=== PATIENT | male | born 1950 | race Hispanic/Latino ===

== ENCOUNTER 2019-01-30 18:19 | Inpatient (IN) | payer MEDICARE ==
[~2019-01-30] VITALS: Ht 162.6 cm; Wt 91.6 kg
[~2019-01-30 18:19] MED LIST: DEXAMETHASONE SOD PHOS INJ 4 MG/ML VIAL ONE; LIDOCAINE HCL 2% LOCAL INJ 5 ML SDV VIAL INJ ONE; ONDANSETRON HCL INJ 2MG/ML 2ML 2 MG/ML VIAL ONE; PROPOFOL IV EMULSION 10 MG/ML 20 ML VIAL ONE
--- OUTSIDE RECORDS SUMMARY | 2019-01-30 18:22 | XMS REPORT ---
Author Author [facility] Address Unknown Phone Unavailable Care Team Providers Care Airport Driver Name Role Phone Unavailable Unavailable Problems This patient has no known problems. Allergies, Adverse Reactions, Alerts This patient has no known allergies or adverse reactions. Medications This patient has no known medications. Results Test Description Test Time Test Comments Text Results Atomic Results Result Comments NM BONE SCAN WHOLE BODY 2017-12-26 14:41:14 CLINICAL INDICATION: dx: c61, r/o mets, prostate ca, asymptomaticMODALITY: Ad Infuse dual head gamma cameraTECHNIQUE: 25 mCi Tc 99m MDP are injected IV. After a suitable time delay, whole body imaging images are obtained.FINDINGS:COMPARISON: Multi para metric prostate MRI.Symmetric bilateral renal function is observed.Periodontal uptake is noted within the maxilla and right mandible.There are mild to moderate arthritic changes seen at the acromioclavicular, glenohumeral, sternoclavicular, wrist, medial knee compartments bilaterally. Mild to moderate thoracic spondylosis is seen. Facet arthritic changes are noted left L4-5 and right L5-S1 facet. Focal uptake is present at the dorsal left calcaneus.No lytic or blastic osseous metastasis is observed.IMPRESSION:Negative for evidence of osteoblastic metastatic disease.PQRS 147: [id number]
--- OUTSIDE RECORDS SUMMARY | 2019-01-30 18:22 | XMS REPORT | Clinical Summary ---
Author Author [facility] L [facility] Address Unknown Phone Unavailable Care Team Providers Care Country Printer Name Role Phone Shiva Leung MD PCP Allergies No Known Allergies Medications End Date Status Medication Sig Dispensed Refills Start Date Active metFORMIN (GLUCOPHAGE) Take 1,000 mg 0 500 mg tablet by mouth 2 (two) times a day with meals. Active lisinopril Take 40 mg by 0 (PRINIVIL,ZESTRIL) 10 mg mouth 2 (two) tablet times a day. Active carvedilol (COREG) 12.5 Take 6.25 mg 0 MG tablet by mouth 2 (two) times a day with meals. 1/2 tablet.. 018. Dose is 3.125mg 2 x a day Active atorvastatin (LIPITOR) 10 Take 20 mg by 0 MG tablet mouth nightly. Active aspirin (ECOTRIN) 81 MG Take 81 mg by 0 enteric coated tablet mouth daily. Active amLODIPine (NORVASC) 10 TOME ANN-MARIE 0 01/03/201 mg tablet TABLETA TODOS 8 LOS D? Active JARDIANCE 25 mg tablet TOME ANN-MARIE 0 TABLETA TODOS 8 LOS D? EN LA MA?KESHIA Active GLYXAMBI 25-5 mg tablet Take 1 tablet 0 by mouth 8 daily. Active LANSOPRAZOLE ORAL Take by 0 mouth. 03/01/2018 acetaminophen-codeine Take 1 tablet 30 tablet 0 (TYLENOL WITH CODEINE #3) by mouth 8 300-30 mg per tablet every 6 (six) hours as needed for moderate pain for up to 10 days. 03/21/2018 docusate sodium (COLACE) Take 1 60 capsule 0 100 MG capsule capsule (100 8 mg total) by mouth 2 (two) times a day for 30 days. 02/23/2018 ciprofloxacin (CIPRO) 500 Take 1 tablet 8 tablet 0 MG tablet (500 mg 8 total) by mouth 2 (two) times a day for 4 days. Start taking the day BEFORE your visit for catheter removal. 03/19/2018 levoFLOXacin (LEVAQUIN) Take 1 tablet 7 tablet 0 500 MG tablet (500 mg 8 total) by mouth daily for 7 days. Active Problems Problem Noted Date Prostate cancer 02/16/2018 Encounters Care Team Description Date Type Specialty Zaida Chua RN 12/17/2018 Telephone Oncology Nestor Farfan MD 04/03/2018 Telephone Urology Nestor Farfan MD Prostate cancer (HCC) (Primary Dx) 04/01/2018 Office Visit Urology Nestor Farfan MD Malignant neoplasm of prostate (Primary Dx) 03/12/2018 Office Visit Urology Nestor Farfan MD 03/05/2018 Telephone Urology Nestor Farfan MD 02/26/2018 Telephone Urology Nestor Farfan MD Prostate cancer (Primary Dx) 02/25/2018 Office Visit Urology Nestor Farfan MD 02/25/2018 Telephone Urology Nestor Farfan MD 02/24/2018 Telephone Urology Lyn Estrada 02/19/2018 Patient Quality Outreach Nestor Farfan MD 02/19/2018 Telephone Urology Nestor Farfan MD ROBOTIC ASSISTED LAPAROSCOPIC PROSTATECTOMY, BILATERAL PELVIC LYMPH NODE DISSECTION, URETHROPEXY 02/16/2018 Surgery Urology Kemar Arciniega APRN 02/16/2018 Anesthesia Urology Event Nestor Farfan MD Prostate cancer 02/16/2018 Hospital General Internal Medicine - Encounter 02/19/2018 after 01/29/2018 Social History Date Tobacco Use Types Packs/Day Years Used Never Smoker Smokeless Tobacco: Never Used Tobacco Cessation: Counseling Given: No Alcohol Use Drinks/Week oz/Week Comments No Sex Assigned at Date Recorded Not on file Industry Job Start Date Occupation Not on file Not on file Not on file Travel End Travel History Travel Start No recent travel history available. Last Filed Vital Signs Time Taken Vital Sign Reading 02/19/2018 11:09 AM CDT Blood Pressure 152/79 02/19/2018 11:09 AM CDT Pulse 68 02/19/2018 11:09 AM CDT Temperature 35.9 C (96.6 F) 02/19/2018 11:09 AM CDT Respiratory Rate 20 02/19/2018 11:09 AM CDT Oxygen Saturation 94% - Inhaled Oxygen - Concentration 02/16/2018 6:59 AM CDT Weight 88.5 kg (195 lb 2 oz) 02/16/2018 6:59 AM CDT Height 167.6 cm (5' 6") 02/16/2018 6:59 AM CDT Body Mass Index 31.49 Plan of Treatment Health Maintenance Due Date Last Done Comments COLONOSCOPY SCREENING 2001 SHINGLES VACCINES (#1) 2001 65+ PNEUMOCOCCAL VACCINE 2016 (1 of 2 - PCV13) INFLUENZA VACCINE 01/21/2019 Implants Device Identifier Shelf Expiration Date Model / Serial / Lot Implanted Type Area Manufactur er 08/31/2022 [id number] / / [id number] Clip [employer]igt[employer] Hem-O-Felice Endoscpc Aplr Surgical N/A: N/A TAN Arias Lg - [id number] Implants; CLOSURE Implanted: Qty: 2 on 02/16/2018 by [employer]; Nestor Martinez MD Extenders; Surgical Wires 10/07/2022 [id number] / / [id number] Clip [employer] Hem[employer]ice [employer] Aplr Surgical N/A: [facility] [id number] Implants; CLOSURE Implanted: Qty: 1 on 02/16/2018 by [employer]; Nestor Martinez MD Extenders; Surgical Wires 10/07/2022 [id number] / / [id number] Clip [employer]igt[employer] Hem-[employer]-Felice Endoscpc Aplr Surgical N/A: N/A TAN Arias Mumtaz - [id number] Implants; CLOSURE Implanted: Qty: 1 on 02/16/2018 by [employer]; Nestor Martinez MD Extenders; Surgical Wires 08/28/2022 [id number] / / [id number] Clip [employer]igt[employer] Hem-[employer]-Felice Endoscpc Aplr Surgical N/A: N/A TAN Arias Lg - [id number] Implants; CLOSURE Implanted: Qty: 2 on 02/16/2018 by [employer]; Nestor Martinez MD Extenders; Surgical Wires 08/18/2022 [id number] / / [id number] Clip [employer]igt[employer] Hem-[employer]-Felice Endoscpc Aplr Surgical N/A: N/A TAN Pemberton Lg - [id number] Implants; CLOSURE Implanted: Qty: 1 on 02/16/2018 by [employer]; SYSTEMS Nestor Farfan MD Extenders; Surgical Wires Procedures Comments Procedure Name Priority Date/Time Associated Diagnosis URINE CULTURE Routine 03/12/2018 Malignant neoplasm of 11:52 AM CDT prostate [id number] Routine 03/12/2018 Malignant neoplasm of 11:34 AM CDT prostate POC GLUCOSE Routine 02/19/2018 12:13 PM CDT CREATININE LEVEL, MISC Routine 02/19/2018 FLUID 7:40 AM CDT POC GLUCOSE Routine 02/19/2018 7:28 AM CDT BASIC METABOLIC PANEL Routine 02/19/2018 4:00 AM CDT ZZESTIMATED GFR Routine 02/19/2018 4:00 AM CDT POC GLUCOSE Routine 02/18/2018 9:26 PM CDT POC GLUCOSE Routine 02/18/2018 5:36 PM CDT POC GLUCOSE Routine 02/18/2018 11:52 AM CDT POC GLUCOSE Routine 02/18/2018 7:28 AM CDT CBC HEMOGRAM Routine 02/18/2018 4:30 AM CDT ZZESTIMATED GFR Routine 02/18/2018 4:00 AM CDT BASIC METABOLIC PANEL Routine 02/18/2018 4:00 AM CDT POC GLUCOSE Routine 02/17/2018 9:35 PM CDT POC GLUCOSE Routine 02/17/2018 5:35 PM CDT POC GLUCOSE Routine 02/17/2018 11:28 AM CDT POC GLUCOSE Routine 02/17/2018 8:00 AM CDT ZZESTIMATED GFR Routine 02/17/2018 4:00 AM CDT BASIC METABOLIC PANEL Routine 02/17/2018 4:00 AM CDT HEMOGLOBIN & HEMATOCRIT Routine 02/17/2018 3:45 AM CDT POC GLUCOSE Routine 02/16/2018 8:34 PM CDT HC COMPLETE BLD COUNT Routine 02/16/2018 W/AUTO DIFF 1:42 PM CDT POC GLUCOSE Routine 02/16/2018 1:17 PM CDT ZZESTIMATED GFR Routine 02/16/2018 1:01 PM CDT BASIC METABOLIC PANEL Routine 02/16/2018 1:01 PM CDT SURGICAL PATHOLOGY Routine 02/16/2018 REQUEST 9:31 AM CDT SURGICAL PATHOLOGY Routine 02/16/2018 REQUEST 9:31 AM CDT VT AN ELECTIVE Routine 02/16/2018 ENDOTRACHEAL AIRWAY 8:25 AM CDT Procedure Note - Senia Todd - 02/16/2018 8:25 AM CDT Airway Date/Time: 02/16/2018 7:29 AM Performed by: SENIA TODD Authorized by: EDDY SHORT Location: OR Urgency: Elective Difficult Airway: No Resident/C RNA/AA: SENIA TODD Preoxygena shanelle with 100% O2: Yes C-spine Precaution s Maintained Throughout : Yes Mask Ventilatio n: Easy mask Final Airway Type: Endotrache al airway Final Endotrache al Airway: ETT Cuffed: Yes Technique Used: Direct laryngosco py Devices/Me thods Used in Placement: Intubatin g stylet Insertion Site: Oral Blade Type: Amaya Laryngosco pe Blade/Vide olaryngosc ope Blade Size: 2 ETT Size (mm): 8.0 Cuff at minimum occlusion pressure: Yes Measured from: Gums ETT to Gums (cm): 23 Placement Verified by: CO2 detection, direct visualizat ion and equal breath sounds Laryngosco pic view: Grade I - full view of glottis Rapid Sequence Induction (RSI): No Modified RSI: No Number of Attempts at Approach: 1 AURTRAUMA TIC RUC CHIPPED PRIOR ARRIVAL OR LUBE & TAPE BOTH EYES OGT PROSTATECTOMY, 02/16/2018 Prostate cancer LAPAROSCOPIC, 7:30 AM CDT ROBOT-ASSISTED Case Notes DAVINCI* *, POSSIBLE EXTENDED RECOVERY Special Needs DAVINCI* *, POSSIBLE EXTENDED RECOVERY POC GLUCOSE Routine 02/16/2018 6:21 AM CDT after 01/29/2018 Results * Urine culture (03/12/2018 11:52 AM CDT) [facility] Urine culture No growth [facility] Specimen Urine Narrative Performed At Performed at:[address] [place] [address] [facility] [address] [place], [place] [id number] [employer] Consultant: Julien Delgado MD, Phone:[phone] Performing Organization Address [facility]/Zipcode Phone Number [facility] * POC BLADDER SCAN/PVR (03/12/2018 11:34 AM CDT) Specimen Urine Impressions Performed At 0 ml * POC glucose (02/19/2018 12:13 PM CDT) Only the most recent of 13 results within the time period is included. [facility] POC glucose 105 (H) 65 - 99 mg/dL [facility] DEPART[facility] Comment: OF PATHOLOGY No Action Needed AND GENOMIC Meter ID: [id number] MEDICINE Crop Adjuster: Eb New Specimen Performing Organization Address City/State/Zipcode Phone Number [facility] DEPARTMENT OF [address] [place] [phone] PATHOLOGY AND GENOMIC MEDICINE * Creatinine level, misc fluid (02/19/2018 7:40 AM CDT) Pathologist [facility] Fluid type Peritoneal [facility] DEPARTMENT OF PATHOLOGY AND GENOMIC MEDICINE Creatinine, 0.7 mg/dL [facility] DEPART[facility] fluid Comment: OF PATHOLOGY Analysis performed on Veronica AND StudioEX 8000 analyzer. This is not an MEDICINE approved methodology for this specimen type;accuracy and clinical significance uncertain. Specimen Fluid Performing Organization Address City/[facility]/[place] [address] PATHOLOGY AND GENOMIC MEDICINE * Estimated GFR (02/19/2018 4:00 AM CDT) Only the most recent of 4 results within the time period is included. [facility] GFR Non Af Amer >90 mL/min/1.73 m2 [facility] DEPART[facility] OF PATHOLOGY AND GENOMIC MEDICINE GFR Af Amer >90 mL/min/1.73 m2 [facility] DEPART[facility] Comment: OF PATHOLOGY Chronic kidney disease: <60 AND GENOMIC mL/min/1.73m2 MEDICINE Kidney failure: <15 mL/min/1.73m2 The estimated GFR is calculated from the IDMS-traceable Modification of Diet in Renal Disease Equation. The accuracy of the calculation is poor when the creatinine is normal. Calculated values >90 mL/min/1.73m2 are not reported. This equation has not been validated in children (<18 years), women, the elderly (>70 years), or ethnic groups other than Caucasians and Americans. Specimen Plasma specimen Performing Organization Address City/State/[place] [address] [employer] [facility] * Basic metabolic panel (02/19/2018 4:00 AM CDT) Only the most recent of 4 results within the time period is included. Pathologist [facility] Sodium 142 135 - 148 mEq/L [facility] DEPARTMENT OF PATHOLOGY AND GENOMIC MEDICINE Potassium 4.4 3.5 - 5.0 mEq/L [facility] DEPARTMENT OF PATHOLOGY AND GENOMIC MEDICINE Chloride 105 98 - 112 mEq/L [facility] DEPARTMENT OF PATHOLOGY AND GENOMIC MEDICINE CO2 19 (L) 24 - 31 mEq/L [facility] DEPARTMENT OF PATHOLOGY AND GENOMIC MEDICINE Anion gap 18@ANIO (H) 7 - 15 mEq/L [facility] DEPARTMENT OF PATHOLOGY AND GENOMIC MEDICINE BUN 16 8 - 23 mg/dL [facility] DEPARTMENT OF PATHOLOGY AND GENOMIC MEDICINE Creatinine 0.8 0.7 - 1.2 mg/dL [facility] DEPARTMENT OF PATHOLOGY AND GENOMIC MEDICINE Glucose 74 65 - 99 mg/dL [facility] DEPARTMENT OF PATHOLOGY AND GENOMIC MEDICINE Calcium 8.3 (L) 8.8 - 10.2 mg/dL [facility] DEPARTMENT OF PATHOLOGY AND GENOMIC MEDICINE Specimen Plasma specimen Performing Organization Address City/[facility]/[place] [address] PATHOLOGY AND GENOMIC MEDICINE * CBC hemogram (02/18/2018 4:30 AM CDT) WBC 8.54 4.50 - 11.00 k/uL [facility] DEPARTMENT OF PATHOLOGY AND GENOMIC MEDICINE RBC 4.30 (L) 4.40 - 6.00 m/uL [facility] DEPARTMENT OF PATHOLOGY AND GENOMIC MEDICINE HGB 12.2 (L) 14.0 - 18.0 g/dL [facility] DEPARTMENT OF PATHOLOGY AND GENOMIC MEDICINE HCT 40.6 (L) 41.0 - 51.0 % [facility] DEPARTMENT OF PATHOLOGY AND GENOMIC MEDICINE MCV 94.4 82.0 - 100.0 fL [facility] DEPARTMENT OF PATHOLOGY AND GENOMIC MEDICINE MCH 28.4 27.0 - 34.0 pg [facility] DEPARTMENT OF PATHOLOGY AND GENOMIC MEDICINE MCHC 30.0 (L) 31.0 - 37.0 g/dL [facility] DEPARTMENT OF PATHOLOGY AND GENOMIC MEDICINE RDW - SD 49.7 37.0 - 55.0 fL [facility] DEPARTMENT OF PATHOLOGY AND GENOMIC MEDICINE MPV 11.8 8.8 - 13.2 fL [facility] DEPARTMENT OF PATHOLOGY AND GENOMIC MEDICINE Platelet count 156 150 - 400 k/uL [facility] DEPARTMENT OF PATHOLOGY AND GENOMIC MEDICINE Nucleated RBC 0.00 /100 WBC [facility] DEPARTMENT OF PATHOLOGY AND GENOMIC MEDICINE Specimen Blood Performing Organization Address City/[facility] Number [facility] [place] [address] PATHOLOGY AND GENOMIC MEDICINE * Hemoglobin & hematocrit (02/17/2018 3:45 AM CDT) HGB 12.2 (L) 14.0 - 18.0 g/dL [facility] DEPARTMENT OF PATHOLOGY AND GENOMIC MEDICINE HCT 39.9 (L) 41.0 - 51.0 % [facility] DEPARTMENT OF PATHOLOGY AND GENOMIC MEDICINE Specimen Blood Performing Organization Address City/[facility]/[place] [address] PATHOLOGY AND GENOMIC MEDICINE * CBC with platelet and differential (02/16/2018 1:42 PM CDT) WBC 11.82 (H) 4.50 - 11.00 k/uL [facility] DEPARTMENT OF PATHOLOGY AND GENOMIC MEDICINE RBC 4.81 4.40 - 6.00 m/uL [facility] DEPARTMENT OF PATHOLOGY AND GENOMIC MEDICINE HGB 13.6 (L) 14.0 - 18.0 g/dL [facility] DEPARTMENT OF PATHOLOGY AND GENOMIC MEDICINE HCT 43.8 41.0 - 51.0 % [facility] DEPARTMENT OF PATHOLOGY AND GENOMIC MEDICINE MCV 91.1 82.0 - 100.0 fL [facility] DEPARTMENT OF PATHOLOGY AND GENOMIC MEDICINE MCH 28.3 27.0 - 34.0 pg [facility] DEPARTMENT OF PATHOLOGY AND GENOMIC MEDICINE MCHC 31.1 31.0 - 37.0 g/dL [facility] DEPARTMENT OF PATHOLOGY AND GENOMIC MEDICINE RDW - SD 46.9 37.0 - 55.0 fL [facility] DEPARTMENT OF PATHOLOGY AND GENOMIC MEDICINE MPV 11.7 8.8 - 13.2 fL [facility] DEPARTMENT OF PATHOLOGY AND GENOMIC MEDICINE Platelet count 241 150 - 400 k/uL [facility] DEPARTMENT OF PATHOLOGY AND GENOMIC MEDICINE Nucleated RBC 0.20 /100 WBC [facility] DEPARTMENT OF PATHOLOGY AND GENOMIC MEDICINE Neutrophils 82.5 (H) 39.0 - 69.0 % [facility] DEPARTMENT OF PATHOLOGY AND GENOMIC MEDICINE Lymphocytes 9.9 (L) 25.0 - 45.0 % [facility] DEPARTMENT OF PATHOLOGY AND GENOMIC MEDICINE Monocytes 6.5 0.0 - 10.0 % [facility] DEPARTMENT OF PATHOLOGY AND GENOMIC MEDICINE Eosinophils 0.6 0.0 - 5.0 % [facility] DEPARTMENT OF PATHOLOGY AND GENOMIC MEDICINE Basophils 0.2 0.0 - 1.0 % [facility] DEPARTMENT OF PATHOLOGY AND GENOMIC MEDICINE Immature 0.3Comment: "Immature 0.0 - 1.0 % [facility] DEPART[facility] granulocytes granulocytes" (promyelocytes, OF PATHOLOGY myelocytes, metamyelocytes) AND GENOMIC MEDICINE Specimen Blood Performing Organization Address City/State/Zipcode Phone Number [facility] DEPARTMENT OF [address] [place] [address] PATHOLOGY AND GENOMIC MEDICINE * Surgical pathology request (02/16/2018 9:31 AM CDT) Only the most recent of 2 results within the time period is included. [facility] DEPARTMENT OF PATHOLOGY AND GENOMIC MEDICINE Surgical See link below for PDF Lab [facility] DEPART[facility] pathology Report OF PATHOLOGY report AND GENOMIC MEDICINE Result status This is Supplemental Report [facility] DEPART[facility] for [id number] OF PATHOLOGY AND GENOMIC MEDICINE Specimen Performing Organization Address City/State/Zipcode Phone Number [facility] DEPARTMENT OF [address] [place] [address] PATHOLOGY AND GENOMIC MEDICINE after 01/29/2018 Insurance Type Payer Benefit Subscriber ID Effective Phone Address Plan / Dates Group PPO BCBS BCBS xxxxxxxxxxxx 2016-P CHOICE resent PPO/DIMPLE ADRIAN PPO Advance Directives Patient has advance care planning documents on file. For more information, katelynn lemons contact: Jorge L Vann [address] [place] [address]
[2019-01-30] MEDS ORDERED: SODIUM CHLORIDE 0.9% 1000ML 1,000 ML IV STA (19:43)
[2019-01-30] MEDS ORDERED: CEFTRIAXONE SOD 1 GM/NS 50 ML 50 ML IV SCH ×3 (19:45→23:30)
[2019-01-30 19:59] LABS: BILIRUBIN,URINE NEGATIVE (NEGATIVE); CLARITY,URINE SL CLOUDY (CLEAR); COLOR,URINE YELLOW (YELLOW); KETONES,URINE NEGATIVE (NEGATIVE); LEUKOCYTE ESTERASE ,URINE NEGATIVE (NEGATIVE); NITRITE,URINE NEGATIVE (NEGATIVE); URINE UROBILINOGEN 0.2 mg/dL (0.2 - 1)
[2019-01-30 20:01] LABS: PROTEIN,URINE DIPSTICK 3+ (NEGATIVE)
[2019-01-30 20:17] LABS: BACTERIA,URINE RARE /HPF; EPITHELIAL CELLS,URINE RARE /LPF; RBC,URINE >50 /HPF (0-5); WBC,URINE (MAN) 0-5 /HPF (0-5)
[2019-01-30 20:26] LABS: BASOPHILS % 0.2 % (0.0-1.0); EOSINOPHILS # (AUTO) 0.3 (0.0-0.4); EOSINOPHILS % 3.6 % (0.0-6.0); HEMATOCRIT 34.4 % (38.2-49.6); HEMOGLOBIN 11.1 g/dL (14.0-18.0); LYMPHOCYTES # (AUTO) 0.7 (1.0-3.2); MEAN CORPUSCULAR HEMOGLOBIN 27.3 pg (28-32); MEAN CORPUSCULAR HGB CONC 32.3 g/dL (31-35); MEAN CORPUSCULAR VOLUME 84.7 fL (81-99); MONOCYTES % 11.2 % (4.4-11.3); NEUTROPHILS # (AUTO) 6.7 (2.1-6.9); NEUTROPHILS % 76.3 % (38.7-80.0); PLATELET COUNT 403 x10e3/uL (140-360); RED BLOOD COUNT 4.06 x10e6/uL (4.3-5.7); RED CELL DISTRIBUTION WIDTH 14.8 % (11.7-14.4)
[2019-01-30 20:41] LABS: ALANINE AMINOTRANSFERASE 13 IU/L (0-55); ALBUMIN 2.9 g/dL (3.5-5.0); ALBUMIN/GLOBULIN RATIO 0.6 (0.8-2.0); ALKALINE PHOSPHATASE 70 IU/L (40-150); ANION GAP 17.6 mmol/L (8-16); BLOOD UREA NITROGEN 15 mg/dL (7-26); BUN/CREATININE RATIO 15 (6-25); CALCIUM 9.4 mg/dL (8.4-10.2); CARBON DIOXIDE 23 mmol/L (22-29); CHLORIDE 101 mmol/L (98-107); CREATININE, SERUM 0.98 mg/dL (0.72-1.25); EST GLOMERULAR FILTRATION RATE > 60 ML/MIN (60-); GLUCOSE 98 mg/dL (74-118); POTASSIUM 3.6 mmol/L (3.5-5.1); SODIUM 138 mmol/L (136-145)
--- NOTE | 2019-01-30 23:11 | Diagnostic Imaging Report ---
EXAM: CT Abdomen and Pelvis WITH contrast INDICATION: Blood in urine. Painful urination. COMPARISON: None. TECHNIQUE: Abdomen and pelvis were scanned utilizing a multidetector helical scanner from the lung base to the pubic symphysis after administration of IV contrast. Coronal and sagittal reformations were obtained. Routine protocol was performed. Scan was performed when during portal venous phase. IV CONTRAST: 100 cc Isovue-300 ORAL CONTRAST: Water RADIATION DOSE: Total DLP: 712.11 mGy*cm Estimated effective dose: (DLP x 0.015 x size factor) mSv COMPLICATIONS: None FINDINGS: LINES and TUBES: None. LOWER THORAX: 6 mm groundglass nodule in the right middle lobe on image 1 series 2. Bibasilar dependent atelectasis. 8 mm noncalcified subpleural nodule in the lingula on images 6 series 2. Minimal lingular atelectasis on image 6 series 2. HEPATOBILIARY: No focal hepatic lesions. No biliary ductal dilation. GALLBLADDER: No radio-opaque stones or sludge. No wall thickening. SPLEEN: No splenomegaly. PANCREAS: No focal masses or ductal dilatation. ADRENALS: No adrenal nodules KIDNEYS/URETERS: Kidneys enhance symmetrically. No hydronephrosis. 3.6 cm cyst in the lower pole of the left kidney associated with punctate calcification. No stones. GI TRACT: No abnormal distention, wall thickening, or evidence of bowel obstruction. Appendix is normal. PELVIC ORGANS/BLADDER: There is diffuse asymmetric wall thickening of the urinary bladder, associated with perivesicular fat stranding, which may reflect cystitis in the proper clinical setting. LYMPH NODES: No lymphadenopathy. VESSELS: There is mild atherosclerotic disease in the aorta and major arterial branches. PERITONEUM / RETROPERITONEUM: No free air or fluid. BONES: Bilateral small fat-containing inguinal hernias. SOFT TISSUES: There is a low-attenuation fluid collection within the right iliac is muscle with mild surrounding peripheral enhancement measuring 4.9 x 2.8 cm on image 73 series 2 which may represent an abscess. IMPRESSION: 1. Findings consistent with cystitis in the proper clinical setting. Recommend follow-up after treatment to document resolution and adnexal the underlying pathology such as neoplasm. 2. 4.9 cm mildly peripherally enhancing collection within the right iliac is muscle may represent an abscess. Bursal fluid is felt to be less likely. 3. Minimally complex cyst in the lower pole of the left knee. Signed by: Dr. Re An M.D. on 01/30/2019 11:08 PM
[2019-01-30] MEDS ORDERED: CARVEDILOL6.25 MG PO (23:36)
[2019-01-30] MEDS ORDERED: NITROFURANTOIN100 MG PO (23:36)
[2019-01-30] MEDS ORDERED: JARDIANCE PO (23:36)
[2019-01-30] MEDS ORDERED: LANSOPRAZOLE30 MG PO (23:36)
[2019-01-30] MEDS ORDERED: AMLODIPINE BESY10 MG PO (23:36)
[2019-01-30] MEDS ORDERED: METFORMIN HCL1000 MG PO (23:36)
[2019-01-30] MEDS ORDERED: ATORVASTATIN CA10 MG PO (23:36)
[2019-01-30] MEDS ORDERED: JANUVIA100 MG PO (23:36)
[2019-01-30] MEDS ORDERED: GLIMEPIRIDE2 MG PO (23:36)
[2019-01-30] MEDS ORDERED: LISINOPRIL40 MG PO (23:36)
[2019-01-31] VITALS (10 sets, daily range): BP systolic 129–157; BP diastolic 78–99
[2019-01-31] MEDS: SODIUM CHLORIDE 0.9% 1000ML 1,000 ML IV SCH ×4 (00:04→19:39)
--- OUTSIDE RECORDS SUMMARY | 2019-01-31 00:06 | XMS REPORT | Clinical Summary ---
Author Author Jorge L [facility] Organization [facility] Address Unknown Phone Unavailable Care Team Providers Care Wire Spooler Name Role Phone Shiva Leung MD PCP [...] General Internal Medicine - Encounter 02/19/2018 after 01/30/2018 Social History Date Tobacco Use Types Packs/Day [...] Lot Implanted Type Area Manufactur er 08/31/2022 [id number] / / [id number] Clip Ligtng Hem-O-Felice Endoscpc Aplr Surgical N/A: N/A TAN Arias Lg - [id number] Implants; CLOSURE Implanted: Qty: 2 on 02/16/2018 by Expanders; Nestor Martinez MD Extenders; Surgical Wires 10/07/2022 [id number] / / [id number] Clip Ligtng Hem-O-Felice Endoscpc Aplr Surgical N/A: [id number]; CLOSURE Implanted: Qty: 1 on 02/16/2018 by Expanders; Nestor Martinez MD Extenders; Surgical Wires 10/07/2022 [id number] / / [id number] Clip Ligtng Hem-O-Felice Endoscpc Aplr Surgical N/A: N/A TAN Arias Mumtaz - [id number] Implants; CLOSURE Implanted: Qty: 1 on 02/16/2018 by Expanders; Nestor Martinez MD Extenders; Surgical Wires 08/28/2022 [id number] / / [id number] Clip Ligtng Hem-O-Felice Endoscpc Aplr Surgical N/A: N/A TAN Arias Lg - [id number] Implants; CLOSURE Implanted: Qty: 2 on 02/16/2018 by Expanders; Nestor Martinez MD Extenders; Surgical Wires 08/18/2022 [id number] / / [id number] Clip Ligtng Hem-O-Felice Endoscpc Aplr Surgical N/A: N/A TAN Pemberton Lg - [id number] Implants; CLOSURE Implanted: Qty: 1 on 02/16/2018 by Expanders; SYSTEMS Nestor Farfan MD Extenders; Surgical Wires Procedures Comments Procedure Name Priority Date/Time Associated Diagnosis URINE CULTURE Routine 03/12/2018 Malignant neoplasm of 11:52 AM CDT prostate [id number] Routine 03/12/2018 Malignant neoplasm of 11:34 AM [...] PATHOLOGY Routine 02/16/2018 REQUEST 9:31 AM CDT IN AN ELECTIVE Routine 02/16/2018 ENDOTRACHEAL AIRWAY 8:25 [...] GLUCOSE Routine 02/16/2018 6:21 AM CDT after 01/30/2018 Results * Urine culture (03/12/2018 11:52 AM CDT) [facility] Urine culture No growth [facility] Specimen Urine Narrative Performed At Performed at:[address] [place] [address] [facility] [address] [place], [place] [id number] Web Application Tester: Julien Delgado MD, Phone:[phone] Performing Organization Address [facility]/Zipcode Phone Number [facility] * POC BLADDER SCAN/PVR (03/12/2018 11:34 AM CDT) Specimen Urine Impressions Performed At 0 ml * POC glucose (02/19/2018 12:13 PM CDT) Only the most recent of 13 results within the time period is included. [facility] POC glucose 105 (H) 65 - 99 mg/dL [facility]PART[facility] Comment: OF PATHOLOGY No Action Needed AND GENOMIC Meter ID: [id number] MEDICINE Maple Sugar Maker: Eb New Specimen Performing Organization Address City/State/Zipcode Phone Number [facility] DEPARTMENT OF [address] [place] [phone] PATHOLOGY AND GENOMIC MEDICINE * Creatinine level, misc fluid (02/19/2018 7:40 AM CDT) Pathologist [facility] Fluid type Peritoneal [facility] DEPART[facility] OF PATHOLOGY AND GENOMIC MEDICINE Creatinine, 0.7 mg/dL [facility] fluid Comment: OF PATHOLOGY Analysis performed on Veronica AND HandMinder 8000 analyzer. This is not an MEDICINE approved methodology for this specimen type;accuracy and clinical significance uncertain. Specimen Fluid Performing Organization Address City/[facility]/[place] [address] PATHOLOGY AND GENOMIC MEDICINE * Estimated GFR (02/19/2018 4:00 AM CDT) Only the most recent of 4 results within the time period is included. [facility] GFR Non Af Amer >90 mL/min/1.73 m2 [facility] DEPART[facility] OF PATHOLOGY AND GENOMIC MEDICINE GFR Af Amer >90 mL/min/1.73 m2 [facility] Comment: OF PATHOLOGY Chronic kidney [...] specimen Performing Organization Address City/State/[place] [address] PATHOLOGY AND HandMinder [facility] * Basic metabolic panel (02/19/2018 4:00 AM CDT) Only the most recent of 4 results within the time period is included. Pathologist [facility] Sodium 142 135 - 148 mEq/L [facility] DEPARTMENT OF PATHOLOGY AND GENOMIC MEDICINE Potassium 4.4 3.5 - 5.0 mEq/L [facility] DEPARTMENT OF PATHOLOGY AND GENOMIC MEDICINE Chloride 105 98 - 112 mEq/L [facility] DEPARTMENT OF PATHOLOGY AND GENOMIC MEDICINE CO2 19 (L) 24 - 31 mEq/L [facility] DEPARTMENT OF PATHOLOGY AND GENOMIC MEDICINE Anion gap 18@ANIO (H) 7 - 15 mEq/L [facility] DEPARTMENT OF PATHOLOGY AND GENOMIC MEDICINE BUN 16 8 - 23 mg/dL [facility] DEPARTMENT OF PATHOLOGY AND GENOMIC MEDICINE Creatinine 0.8 0.7 - 1.2 mg/dL [facility] DEPARTMENT OF PATHOLOGY AND GENOMIC MEDICINE Glucose 74 65 - 99 mg/dL [facility] DEPARTMENT OF PATHOLOGY AND GENOMIC MEDICINE Calcium 8.3 (L) 8.8 - 10.2 mg/dL [facility] DEPARTMENT OF PATHOLOGY AND GENOMIC MEDICINE Specimen Plasma specimen Performing Organization Address City/[facility]/[place] [address] PATHOLOGY AND GENOMIC MEDICINE * CBC hemogram (02/18/2018 4:30 AM CDT) WBC 8.54 4.50 - 11.00 k/uL [facility] DEPARTMENT OF PATHOLOGY AND GENOMIC MEDICINE RBC 4.30 (L) 4.40 - 6.00 m/uL [facility] DEPARTMENT OF PATHOLOGY AND GENOMIC MEDICINE HGB 12.2 (L) 14.0 - 18.0 g/dL [facility] DEPARTMENT OF PATHOLOGY AND GENOMIC MEDICINE HCT 40.6 (L) 41.0 - 51.0 % [facility] DEPARTMENT OF PATHOLOGY AND GENOMIC MEDICINE MCV 94.4 82.0 - 100.0 fL [facility] DEPARTMENT OF PATHOLOGY AND GENOMIC MEDICINE MCH 28.4 27.0 - 34.0 pg [facility] DEPARTMENT OF PATHOLOGY AND GENOMIC MEDICINE MCHC 30.0 (L) 31.0 - 37.0 g/dL [facility] DEPARTMENT OF PATHOLOGY AND GENOMIC MEDICINE RDW - SD 49.7 37.0 - 55.0 fL [facility] DEPARTMENT OF PATHOLOGY AND GENOMIC MEDICINE MPV 11.8 8.8 - 13.2 fL [facility] DEPARTMENT OF PATHOLOGY AND GENOMIC MEDICINE Platelet count 156 150 - 400 k/uL [facility] DEPARTMENT OF PATHOLOGY AND GENOMIC MEDICINE Nucleated RBC 0.00 /100 WBC [facility] DEPARTMENT OF PATHOLOGY AND GENOMIC MEDICINE Specimen Blood Performing Organization Address City/[facility] Cent[facility] Phone Number [facility] [place] [address] PATHOLOGY AND GENOMIC MEDICINE * Hemoglobin & hematocrit (02/17/2018 3:45 AM CDT) HGB 12.2 (L) 14.0 - 18.0 g/dL [facility] DEPARTMENT OF PATHOLOGY AND GENOMIC MEDICINE HCT 39.9 (L) 41.0 - 51.0 % [facility] DEPARTMENT OF PATHOLOGY AND GENOMIC MEDICINE Specimen Blood Performing Organization Address City/[facility]/[place] [address] PATHOLOGY AND GENOMIC MEDICINE * CBC with platelet and differential (02/16/2018 1:42 PM CDT) WBC 11.82 (H) 4.50 - 11.00 k/uL [facility] DEPARTMENT OF PATHOLOGY AND GENOMIC MEDICINE RBC 4.81 4.40 - 6.00 m/uL [facility] DEPARTMENT OF PATHOLOGY AND GENOMIC MEDICINE HGB 13.6 (L) 14.0 - 18.0 g/dL [facility] DEPARTMENT OF PATHOLOGY AND GENOMIC MEDICINE HCT 43.8 41.0 - 51.0 % [facility] DEPARTMENT OF PATHOLOGY AND GENOMIC MEDICINE MCV 91.1 82.0 - 100.0 fL [facility] DEPARTMENT OF PATHOLOGY AND GENOMIC MEDICINE MCH 28.3 27.0 - 34.0 pg [facility] DEPARTMENT OF PATHOLOGY AND GENOMIC MEDICINE MCHC 31.1 31.0 - 37.0 g/dL [facility] DEPARTMENT OF PATHOLOGY AND GENOMIC MEDICINE RDW - SD 46.9 37.0 - 55.0 fL [facility] DEPARTMENT OF PATHOLOGY AND GENOMIC MEDICINE MPV 11.7 8.8 - 13.2 fL [facility] DEPARTMENT OF PATHOLOGY AND GENOMIC MEDICINE Platelet count 241 150 - 400 k/uL [facility] DEPARTMENT OF PATHOLOGY AND GENOMIC MEDICINE Nucleated RBC 0.20 /100 WBC [facility] DEPARTMENT OF PATHOLOGY AND GENOMIC MEDICINE Neutrophils 82.5 (H) 39.0 - 69.0 % [facility] DEPARTMENT OF PATHOLOGY AND GENOMIC MEDICINE Lymphocytes 9.9 (L) 25.0 - 45.0 % [facility] DEPARTMENT OF PATHOLOGY AND GENOMIC MEDICINE Monocytes 6.5 0.0 - 10.0 % [facility] DEPARTMENT OF PATHOLOGY AND GENOMIC MEDICINE Eosinophils 0.6 0.0 - 5.0 % [facility] DEPARTMENT OF PATHOLOGY AND GENOMIC MEDICINE Basophils 0.2 0.0 - 1.0 % [facility] DEPARTMENT OF PATHOLOGY AND GENOMIC MEDICINE Immature 0.3Comment: "Immature 0.0 - 1.0 % [facility] DEPART[facility] granulocytes granulocytes" (promyelocytes, OF PATHOLOGY myelocytes, metamyelocytes) AND GENOMIC MEDICINE Specimen Blood Performing Organization Address City/State/Zipcode Phone Number [facility] DEPARTMENT OF [address] [place] [address] PATHOLOGY AND GENOMIC MEDICINE * Surgical pathology request (02/16/2018 9:31 AM CDT) Only the most recent of 2 results within the time period is included. [facility] DEPARTMENT OF PATHOLOGY AND GENOMIC MEDICINE Surgical See link below for PDF Lab [facility] DE[facility] pathology Report OF PATHOLOGY report AND GENOMIC MEDICINE Result status This is Supplemental Report [facility] for [id number] OF PATHOLOGY AND GENOMIC MEDICINE Specimen Performing Organization Address City/State/Zipcode Phone Number [facility] DEPARTMENT OF [address] [place] [address] PATHOLOGY AND GENOMIC MEDICINE after 01/30/2018 Insurance Type Payer Benefit Subscriber ID Effective Phone Address Plan / Dates Group PPO BCBS BCBS xxxxxxxxxxxx [id number] CHOICE resent PPO/DIMPLE ADRIAN PPO Advance Directives Patient has advance care planning documents on file. For more information, katelynn lemons contact: Jorge L Vann [address] [place] [address]
--- NOTE | 2019-01-31 00:12 | NUR ---
Patient came onto the floor from ER for right groin abscess and painful urination. The patient is Pakistani speaking which the tech translated for the RN. The patient is A/Ox3 with pain over the right groin at 5/10. Wheels lock, bed height low, call light within reach, and side rails up x2. Dr. Vega has been contacted as admitting physician.
[2019-01-31] MEDS ORDERED: IOPAMIDOL 370 MG/ML 200 ML INFUS..BTL INJ ONE (03:27)
[2019-01-31] MEDS ORDERED: SODIUM CHLORIDE 0.9% 50ML 50 ML ONE (03:27)
--- NOTE | 2019-01-31 06:48 | NUR ---
Walking rounds and report received. Patient continues to c/o burning while urinating. Son at the bedside. POC discussed in Kazakh. Bed in lowest position, locked, and call fiore within reach.
[2019-01-31 08:04] LABS: BASOPHILS % 0.4 % (0.0-1.0); EOSINOPHILS # (AUTO) 0.3 (0.0-0.4); EOSINOPHILS % 3.8 % (0.0-6.0); HEMATOCRIT 31.9 % (38.2-49.6); HEMOGLOBIN 9.8 g/dL (14.0-18.0); LYMPHOCYTES # (AUTO) 0.7 (1.0-3.2); LYMPHOCYTES % 9.2 % (18.0-39.1); MEAN CORPUSCULAR HEMOGLOBIN 26.7 pg (28-32); MEAN CORPUSCULAR HGB CONC 30.7 g/dL (31-35); MEAN CORPUSCULAR VOLUME 86.9 fL (81-99); MONOCYTES # (AUTO) 0.8 (0.2-0.8); MONOCYTES % 11.2 % (4.4-11.3); NEUTROPHILS # (AUTO) 5.3 (2.1-6.9); NEUTROPHILS % 74.8 % (38.7-80.0); PLATELET COUNT 328 x10e3/uL (140-360); RED BLOOD COUNT 3.67 x10e6/uL (4.3-5.7)
[2019-01-31 08:26] LABS: ALANINE AMINOTRANSFERASE 11 IU/L (0-55); ALBUMIN 2.4 g/dL (3.5-5.0); ALBUMIN/GLOBULIN RATIO 0.6 (0.8-2.0); ALKALINE PHOSPHATASE 61 IU/L (40-150); ANION GAP 13.1 mmol/L (8-16); BLOOD UREA NITROGEN 13 mg/dL (7-26); BUN/CREATININE RATIO 15 (6-25); CALCIUM 8.6 mg/dL (8.4-10.2); CARBON DIOXIDE 24 mmol/L (22-29); CHLORIDE 107 mmol/L (98-107); CREATININE, SERUM 0.84 mg/dL (0.72-1.25); EST GLOMERULAR FILTRATION RATE > 60 ML/MIN (60-); GLUCOSE 144 mg/dL (74-118); POTASSIUM 3.1 mmol/L (3.5-5.1); SODIUM 141 mmol/L (136-145)
[2019-01-31] MEDS ORDERED: HEPARIN SOD (PORCINE) 5,000 UNIT/ML VIAL SC NR (11:30)
[2019-01-31] MEDS: INSULIN LISPRO 100 UNIT/1 ML 3ML VIAL SQ SCH ×3 (11:30→20:05)
[2019-01-31] MEDS ORDERED: POTASSIUM CHLORIDE 20 MEQ TAB CR PO NR (11:30)
[2019-01-31] MEDS: GLIMEPIRIDE 2 MG TAB PO SCH ×2 (12:55→23:22)
[2019-01-31] MEDS: CARVEDILOL 12.5 MG TAB PO SCH ×2 (12:55→17:33)
[2019-01-31] MEDS: AMLODIPINE BESYLATE 10 MG TAB PO SCH (12:56)
[2019-01-31] MEDS: LISINOPRIL 20 MG TAB PO SCH (12:56)
[2019-01-31] MEDS: CEFEPIME 1GM/NS 0.9% 50 ML 50 ML IV SCH ×3 (12:57→23:22)
--- NOTE | 2019-01-31 13:07 | Consultation ---
DATE OF CONSULTATION: 01/31/2019 Dr. Darin Edwards dictating a consultation for Dr. Vega. HISTORY: This is a 68-year-old male, who comes to the hospital because of pain in the right lower abdomen and groin. He also has been told that he had a urinary tract infection. His symptomatology for that was frequency, urgency, dysuria, particularly at the end of the penis and he had seen some bloody discoloration in the urine at the end of micturition. He was given antibiotic, nitrofurantoin which he took at home. So, he comes to the hospital, where a CT scan is done and he is admitted with the impression of an abscess of the right groin. He also has severe microscopic hematuria, although the patient had not seen any blood. There is over 50 red blood cells in the urine itself. MEDICATIONS: Amlodipine 10 mg daily, atorvastatin 10 mg at bedtime, carvedilol 6.25 mg twice daily, glimepiride 2 mg every 12 hours, lansoprazole 30 mg daily, lisinopril 40 mg daily, metformin 1000 mg twice daily and Januvia 100 mg daily. He also takes lactobacillus acidophilus. PAST UROLOGICAL HISTORY: He had approximately a year and a half ago a radical robotic prostatectomy with bilateral lymph node dissection followed by 38 treatments of radiation in the pelvis. He does not offer any other surgery. SOCIAL HISTORY: He is . He is not sexually active. ALLERGIES: HE HAS NO KNOWN DRUG ALLERGIES. PHYSICAL EXAMINATION: The penis is normal. Testicles are normal. There are no inguinal hernias. There is pain on the femoral canal going up into the right groin and stopping at the superior anterior iliac spine on the right side. Prostatic fossa is empty. IMAGING: On the CT scan, the patient has a right-sided lymphocele that is a result of the operation that occurs with lymphadenectomy and the treatment is to drain the lymphocele into the abdomen. The patient has bilateral cyst upper pole right small and peripelvic lower pole larger at 3.5, 3.7 cm with a 1 mm stone in the lower pole infundibulum-calyx. The patient has an enlarged liver and that his abdominal CT is normal. The bladder is severely thickened and there is perivesical inflammation as well as perirectal inflammation. The patient has had pretty much symptomatology due to the radiation cystitis. IMPRESSION: 1. Radiation cystitis. 2. Lymphocele. RECOMMENDATIONS: Cystoscopy is recommended. The patient has the complaint of frequency during the daytime, but also nocturia x5 to 6. He also notices that his flow is slow and sometimes he is just being dribbling lately. After the antibiotics, he says that his flow has gotten a little better and it does not burn as much. I would like to do a cystoscopy, dilatation of any bladder neck contracture that the patient has. A biopsy of the bladder with full duration. Of course, we will be sending all this records to [facility], so he can be seen by the urologist. If I have to dilate the bladder neck, I will have to leave a Schulz catheter in place for 3 to 5 days. The patient does not have to be in the hospital that long. MD TOR Toribio/MODL /[id number]
[2019-01-31] MEDS: LACTOBACILLUS ACIDOPHILUS CAPSULE PO SCH (17:33)
--- NOTE | 2019-01-31 18:45 | NUR ---
Received bedside report from day shift RN. The patient is laying on the bed, not in distress. Bed height low, call light within reach, wheels locked, and side rails up x2. The patient verbalized understanding to be NPO after midnight for cystoscopy tomorrow afternoon.
[2019-01-31] MEDS: ATORVASTATIN 10 MG TAB PO SCH (19:58)
[2019-01-31] MEDS: ACETAMINOPHEN 325 MG TAB PO PRN (19:58)
[2019-02-01] VITALS (10 sets, daily range): BP systolic 125–157; BP diastolic 76–90
[2019-02-01] MEDS: CEFEPIME 1GM/NS 0.9% 50 ML 50 ML IV SCH ×3 (05:26→17:20)
[2019-02-01 06:29] LABS: INR 1.01; PROTHROMBIN TIME 13.8 seconds (11.9-14.5)
[2019-02-01 06:31] LABS: PARTIAL THROMBOPLASTIN TIME 28.1 seconds (23.8-35.5)
[2019-02-01 06:35] LABS: ANION GAP 11.4 mmol/L (8-16); BLOOD UREA NITROGEN 10 mg/dL (7-26); BUN/CREATININE RATIO 14 (6-25); CARBON DIOXIDE 26 mmol/L (22-29); CHLORIDE 104 mmol/L (98-107); CREATININE, SERUM 0.73 mg/dL (0.72-1.25); EST GLOMERULAR FILTRATION RATE > 60 ML/MIN (60-); GLUCOSE 130 mg/dL (74-118); MAGNESIUM 1.6 MG/DL (1.3-2.1); POTASSIUM 3.4 mmol/L (3.5-5.1); SODIUM 138 mmol/L (136-145)
[2019-02-01 06:50] LABS: BASOPHILS % 0.3 % (0.0-1.0); EOSINOPHILS # (AUTO) 0.3 (0.0-0.4); HEMATOCRIT 29.9 % (38.2-49.6); HEMOGLOBIN 9.2 g/dL (14.0-18.0); LYMPHOCYTES # (AUTO) 0.6 (1.0-3.2); LYMPHOCYTES % 8.6 % (18.0-39.1); MEAN CORPUSCULAR HEMOGLOBIN 26.6 pg (28-32); MEAN CORPUSCULAR HGB CONC 30.8 g/dL (31-35); MEAN CORPUSCULAR VOLUME 86.4 fL (81-99); MONOCYTES # (AUTO) 0.8 (0.2-0.8); MONOCYTES % 11.1 % (4.4-11.3); NEUTROPHILS # (AUTO) 5.1 (2.1-6.9); NEUTROPHILS % 75.4 % (38.7-80.0); PLATELET COUNT 353 x10e3/uL (140-360); RED BLOOD COUNT 3.46 x10e6/uL (4.3-5.7); RED CELL DISTRIBUTION WIDTH 15.1 % (11.7-14.4)
[2019-02-01] MEDS: INSULIN LISPRO 100 UNIT/1 ML 3ML VIAL SQ SCH ×4 (07:30→21:00)
--- NOTE | 2019-02-01 07:30 | NUR ---
PT IN BED SLEEPING ,NO DISTRESS NTOED ,DENIES PAIN.
[2019-02-01 08:08] LABS: EOSINOPHILS % (MANUAL) 2 % (0-7); LYMPHOCYTES % (MANUAL) 8 % (19-48); MONOCYTES % (MANUAL) 8 % (3.4-9.0); NEUTROPHILS % (MANUAL) 82 % (40-74); PLATELET MORPHOLOGY COMMENT NORMAL
[2019-02-01 08:10] LABS: PLATELET ESTIMATE ADEQUATE
[2019-02-01] MEDS: ACETAMINOPHEN 325 MG TAB PO PRN (08:38)
[2019-02-01] MEDS: AMLODIPINE BESYLATE 10 MG TAB PO SCH (09:00)
[2019-02-01] MEDS: LACTOBACILLUS ACIDOPHILUS CAPSULE PO SCH ×2 (09:00→17:20)
[2019-02-01] MEDS: LISINOPRIL 20 MG TAB PO SCH (09:00)
[2019-02-01] MEDS: CARVEDILOL 12.5 MG TAB PO SCH ×2 (09:00→17:20)
[2019-02-01] MEDS: SITAGLIPTIN 100 MG TAB PO SCH (10:13)
--- NOTE | 2019-02-01 10:16 | NUR ---
PT IN SHOWER ,AWAITNG FOR SURERY
[2019-02-01] MEDS ORDERED: IOPAMIDOL 610MG/1ML 300 MG/ML VIAL IV ONE ×2 (11:12→11:38)
[2019-02-01] MEDS: GLIMEPIRIDE 2 MG TAB PO SCH ×2 (11:30→23:30)
--- NOTE | 2019-02-01 12:25 | NUR ---
EDUCATED ABOUT IMM, SIGNED, FILED IN CHART, WITH COPY LEFT WITH FAMILY AT BEDSIDE.
[2019-02-01] MEDS ORDERED: FENTANYL CITRATE/PF 100MCG/2 ML INJ ONE ×2 (13:19→21:48)
--- NOTE | 2019-02-01 13:40 | NUR ---
PT RETURNED TO ROOM VIA BED,16FR MCKEON CATH TO BSD CLEAR YELLOW URINE.IVF INFUSING ,O2 2L NC IN PLACE.PAIN LEVEL 4 TO ABD
--- NOTE | 2019-02-01 18:23 | NUR ---
PT IN BED ,MCKEON TO BSD CLEAR YELLOW URINE,DENIES PAIN.
--- NOTE | 2019-02-01 19:20 | NUR ---
BS rounds completed with morning nurse. Pt alert and orient to name. Schulz 16 Fr, yellow, cloudy urine flowing. Denies pain at this time. Call fiore within reach. Bed low and locked. Family at bedside. Will continue to monitor.
[2019-02-01] MEDS: ATORVASTATIN 10 MG TAB PO SCH (21:00)
[2019-02-01] MEDS ORDERED: MIDAZOLAM HCL 2 MG/2 ML VIAL ONE (21:48)
[2019-02-02] VITALS: BP_SYST 122; BP_SYST 175; BP_DIAS 77; BP_DIAS 79
--- NOTE | 2019-02-02 02:10 | Operative Report ---
DATE OF PROCEDURE: 02/01/2019 SURGEON: Darin Edwards MD PREOPERATIVE DIAGNOSES: 1. Hematuria. 2. Cystitis. 3. Pelvic lymphocele. 4. Urethral stricture-bladder neck contracture. POSTOPERATIVE DIAGNOSES: 1. 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 2. Status post radical prostatectomy and lymphocele. PROCEDURES: Retrograde urethrogram, cystoscopy, bilateral retrograde pyelograms, multiple bladder biopsies and fulguration. ANESTHESIA: Staff. ANESTHESIA: General. FINDINGS: Retrograde urethrogram showed no evidence of strictures or bladder neck contractures. Pictures were taken of the case. The patient was given a video, pictures taken. The bladder neck was swollen. There was some cystitis cystica on the trigone. Both ureteral orifices were normal. The posterior wall of the bladder was severely swollen. When the biopsy was done, mucousy tissue or necrotic tissue was seen emanating from the mucosa. There were scattered spider web lesions compatible with radiation cystitis. Bladder capacity was diminished 120 mL under anesthesia. Biopsies were done and fulguration was done. DESCRIPTION OF PROCEDURE: With the patient under satisfactory general anesthetic, the patient was placed in the supine position on the operating table. Legs were placed on stirrups. Genitalia was prepped with Betadine soap and solution and draped in usual manner. After the patient was prepped and draped, time-out was obtained. All agreed with the procedure as planned. Using a Keith syringe, contrast media was injected retrograde to fill out the urethra. Multiple x-rays were taken and no evidence of obstruction was seen. Next, 22-Slovenian cystourethroscope was passed per urethra. It was noted that there was no stricture or bladder neck contracture, but there was no prostate. The external sphincter was appreciated and he seems to be normal. Within the bladder neck, bullous edema was found as well as some evidence of small little growth almost look like superficial transitional cell carcinoma, but I would pretty much make a bet that this is secondary to radiation cystitis. The same was found in the area above the trigone to the right side of the bladder and in the midline in the posterior wall. The rest of the bladder, right lateral dome anterior and left lateral is normal. At this point, using a #8 cone-tip ureteral catheter, contrast media was injected retrograde up to both kidneys. CT scan does confirm that there was no evidence of obstruction. Both kidneys drained well. After that, the cup biopsy forceps was used to obtain biopsies and this was done satisfactorily using the Bugbee electrode to fulgurate the area. A posterior wall bladder neck biopsies were done. After that, the instruments were removed. A 16-Slovenian Schulz catheter was passed per urethra. The bladder left indwelling and the patient was taken to recovery room in satisfactory condition. Urological discharge. The patient does not have an abscess of the groin, has a lymphocele. This needs to be surgically treated. The patient is a [facility] patient, this can be arranged for the doctors at [facility] to take care of. The next thing was the biopsies that were done. I asked the pathologist to count mass cells to see the degree of inflammatory response to the area. This may very well be something that is quite severe, may need to have hyperbaric treatment now before he continues to progressively get worse and the patient begins to bleed from all over the bladder. I discussed that with the patient, the patient, and the son. That it was very important that he follow up with the urologist at [facility] for lymphocele treatment and for radiation cystitis with hyperbaric treatment. MD TOR Toribio/BENNETT /[id number]
[2019-02-02 04:00] VITALS: BP 138/83
--- NOTE | 2019-02-02 05:43 | NUR ---
16 Fr Schulz cath d/c'd per order, 10ml of water drawn from balloon. Catheter removed without easily, catheter tip intact. Pt tolerated well. Pt instructed to notify nurse of first void.
[2019-02-02] MEDS: INSULIN LISPRO 100 UNIT/1 ML 3ML VIAL SQ SCH (07:30)
[2019-02-02 08:00] VITALS: BP 158/95
--- NOTE | 2019-02-02 08:00 | NUR ---
PT UP AMBULATING ,VOIDED SMALL AMT YELLOW URINE INSTRUCTED TO USE URINAL.DENIES PAIN.
[2019-02-02 08:26] VITALS: BP 158/95
[2019-02-02] MEDS: LISINOPRIL 20 MG TAB PO SCH (09:00)
[2019-02-02] MEDS: CARVEDILOL 12.5 MG TAB PO SCH (09:00)
[2019-02-02] MEDS ORDERED: OXYBUTYNIN CHLORIDE XL 5 MG TAB PO SCH (09:00)
[2019-02-02] MEDS: AMLODIPINE BESYLATE 10 MG TAB PO SCH (09:00)
[2019-02-02] MEDS: SITAGLIPTIN 100 MG TAB PO SCH (09:00)
--- NOTE | 2019-02-02 09:30 | NUR ---
PT VOIDED 4OO CC CLEAR URINE
[2019-02-02 11:42] VITALS: BP 140/86
[2019-02-02] MEDS: GLIMEPIRIDE 2 MG TAB PO SCH (12:00)
[2019-02-02] MEDS ORDERED: TYLENOL WITH C1 EACH PO (12:13)
--- NOTE | 2019-02-02 12:37 | NUR ---
PT DISCHARGED HOME IV DCD WITHOUT REDNESS OR SWELLING,INSTRUCTED TO FOLLOE=WUP WITH UROLOGIST THAT DID HIS SURGERY BE[place]ORE,TRNSPORTED TO AUTO W/C
--- NOTE | 2019-02-03 05:03 | Discharge Summary ---
PRIMARY CARE DOCTOR: Dr. Teto Brown. FINAL DIAGNOSES: 1. Radiation-induced cystitis. 2. Right groin lymphocele. 3. Diabetes. 4. Hypertension. 5. Prostate cancer, status post prostatectomy over year ago. CONSULTANTS: Dr. Darin Edwards, Urology. PROCEDURE/STUDIES PERFORMED: 1. Cystoscopy. 2. CT of the abdomen and pelvis. HISTORY: Per H and P. HOSPITAL COURSE: The patient initially admitted for what thought to be UTI, failing outpatient antibiotics and also with a possible right iliac abscess. However, the patient was evaluated by Urology. Cystoscopy was done. The patient has radiation-induced cystitis and also he does not have an abscess. This is due to lymphocele. The patient had radical prostatectomy a year and a half ago with bilateral lymph node dissection and unfortunately that this is a side effect. The patient was on IV antibiotics initially, however, this was discontinued. I have printed out a report of the cystoscopy dictation and gave it to the . The patient will follow up with his primary care doctor in a week and also he needs to follow up with the [facility] Urologist to have the lymphocele drained and also management of radiation-induced cystitis. The patient is seen and examined today. It took 35 minutes total to discharge this patient including updating the family members at the bedside and primary care doctor. I have also discussed with the urologist as well. CONDITION ON DISCHARGE: Improved. DISCHARGE MEDICATIONS: Please see medication reconciliation form. MD JOHN Neri/BENNETT /[id number] cc: [facility]
--- NOTE | 2019-02-08 09:12 | Diagnostic Imaging Report ---
Retrograde urethrogram and pyelogram. History: Right iliac muscle abscess. Comparison: None available. Discussion: Procedure was performed by urology. Contrast was injected in a retrograde fashion into the urethra and bilateral ureters ureter. Multiple images were obtained. Fluoro time: 0.3 minutes. Dose: 7.4 mGy (KELLEN) There is filling of the urethra without evidence of stricture, filling defect, or luminal irregularity. There is filling of bilateral ureters with contrast noted to flow into the bilateral renal collecting systems without evidence of stricture, filling defect, or luminal irregularity. IMPRESSION: Normal retrograde urethrogram and pyelogram. Signed by: Pratik Ellis on 02/08/2019 9:09 AM
== END 2019-02-02 12:37 | disposition home or self-care (01) | DRG 670 ==
LOC: ER 18:19 → ERHOLD 23:20 → MED/SURG3 01-31 00:12 → OBSVTOIN 01-31 11:15
PROVIDERS: ADMIT Internal Medicine; ATTEND Internal Medicine
PROC: 0T5C8ZZ Destruction of Bladder Neck, Via Natural or Artificial Opening Endoscopic (ICD-10-PCS; 2019-02-01)
PROC: BT141ZZ Fluoroscopy of Kidneys, Ureters and Bladder using Low Osmolar Contrast (ICD-10-PCS; 2019-02-01)
PROC: 0TBB8ZX Excision of Bladder, Via Natural or Artificial Opening Endoscopic, Diagnostic (ICD-10-PCS; principal; 2019-02-01 11:36)
DX: N30.41 Irradiation cystitis with hematuria (principal); I89.8 Other specified noninfective disorders of lymphatic vessels and lymph nodes; E11.9 Type 2 diabetes mellitus without complications; I10 Essential (primary) hypertension; Z85.46 Personal history of malignant neoplasm of prostate; Z90.79 Acquired absence of other genital organ(s); E78.5 Hyperlipidemia, unspecified
CPT/HCPCS: 36415; 74177; 74420; 74450; 80048; 80053; 81001; 82948; 83735; 85025; 85610; 85730; 87086; 88305; 88313; 99284; G0378; J0692; J0696; J1100; J2001; J2250; J2405; J3010; J7030; Q9967

== ENCOUNTER 2019-02-12 20:22 | Emergency (ER) | payer MEDICARE ==
[~2019-02-12] VITALS: Ht 162.6 cm; Wt 91.6 kg
[~2019-02-12 20:22] MED LIST changes: +AMLODIPINE BESY10 MG PO; +ATORVASTATIN CA10 MG PO; +CARVEDILOL6.25 MG PO; -DEXAMETHASONE SOD PHOS INJ 4 MG/ML VIAL ONE; +GLIMEPIRIDE2 MG PO; +JANUVIA100 MG PO; +JARDIANCE PO; +LANSOPRAZOLE30 MG PO; -LIDOCAINE HCL 2% LOCAL INJ 5 ML SDV VIAL INJ ONE; +LISINOPRIL40 MG PO; +METFORMIN HCL1000 MG PO; +NITROFURANTOIN100 MG PO; -ONDANSETRON HCL INJ 2MG/ML 2ML 2 MG/ML VIAL ONE; -PROPOFOL IV EMULSION 10 MG/ML 20 ML VIAL ONE; +TYLENOL WITH C1 EACH PO
[2019-02-12 21:47] LABS: BILIRUBIN,URINE NEGATIVE (NEGATIVE); CLARITY,URINE SL CLOUDY (CLEAR); COLOR,URINE YELLOW (YELLOW); KETONES,URINE NEGATIVE (NEGATIVE); LEUKOCYTE ESTERASE ,URINE NEGATIVE (NEGATIVE); NITRITE,URINE NEGATIVE (NEGATIVE); URINE UROBILINOGEN 0.2 mg/dL (0.2 - 1)
[2019-02-12 21:48] LABS: PROTEIN,URINE DIPSTICK 2+ (NEGATIVE)
--- NOTE | 2019-02-12 21:53 | NUR ---
bladder scan performed: 0ml, 42ml and 51ml were readings. dr llanes informed
[2019-02-12 21:55] LABS: BASOPHILS % 0.3 % (0.0-1.0); EOSINOPHILS # (AUTO) 0.2 (0.0-0.4); EOSINOPHILS % 2.5 % (0.0-6.0); HEMATOCRIT 32.5 % (38.2-49.6); LYMPHOCYTES # (AUTO) 0.8 (1.0-3.2); LYMPHOCYTES % 10.3 % (18.0-39.1); MEAN CORPUSCULAR HEMOGLOBIN 26.5 pg (28-32); MEAN CORPUSCULAR HGB CONC 30.8 g/dL (31-35); MEAN CORPUSCULAR VOLUME 86.2 fL (81-99); MONOCYTES # (AUTO) 0.7 (0.2-0.8); MONOCYTES % 9.5 % (4.4-11.3); NEUTROPHILS # (AUTO) 5.6 (2.1-6.9); PLATELET COUNT 367 x10e3/uL (140-360); RED BLOOD COUNT 3.77 x10e6/uL (4.3-5.7); RED CELL DISTRIBUTION WIDTH 15.6 % (11.7-14.4)
[2019-02-12 22:01] LABS: BACTERIA,URINE FEW /HPF
[2019-02-12 22:11] LABS: ANION GAP 14.9 mmol/L (8-16); BLOOD UREA NITROGEN 18 mg/dL (7-26); BUN/CREATININE RATIO 22 (6-25); CALCIUM 9.7 mg/dL (8.4-10.2); CARBON DIOXIDE 25 mmol/L (22-29); CHLORIDE 102 mmol/L (98-107); CREATININE, SERUM 0.81 mg/dL (0.72-1.25); EST GLOMERULAR FILTRATION RATE > 60 ML/MIN (60-); GLUCOSE 133 mg/dL (74-118); POTASSIUM 3.9 mmol/L (3.5-5.1); SODIUM 138 mmol/L (136-145)
== END 2019-02-12 22:46 | disposition home or self-care (01) ==
LOC: ER 20:22
DX: R30.0 Dysuria (principal); R31.29 Other microscopic hematuria; I10 Essential (primary) hypertension; E11.9 Type 2 diabetes mellitus without complications; K21.9 Gastro-esophageal reflux disease without esophagitis; E78.5 Hyperlipidemia, unspecified; Z79.84 Long term (current) use of oral hypoglycemic drugs
CPT/HCPCS: 36415; 80048; 81001; 85025; 99283

== ENCOUNTER 2019-04-14 09:55 | Emergency (ER) | payer MEDICARE ==
[~2019-04-14] VITALS: Ht 162.6 cm; Wt 91.6 kg
[2019-04-14 10:25] LABS: BASOPHILS % 0.2 % (0.0-1.0); EOSINOPHILS # (AUTO) 0.3 (0.0-0.4); EOSINOPHILS % 5.1 % (0.0-6.0); HEMATOCRIT 37.4 % (38.2-49.6); HEMOGLOBIN 11.3 g/dL (14.0-18.0); LYMPHOCYTES % 18.8 % (18.0-39.1); MEAN CORPUSCULAR HEMOGLOBIN 26.4 pg (28-32); MEAN CORPUSCULAR HGB CONC 30.2 g/dL (31-35); MEAN CORPUSCULAR VOLUME 87.4 fL (81-99); MONOCYTES # (AUTO) 0.4 (0.2-0.8); NEUTROPHILS # (AUTO) 3.4 (2.1-6.9); NEUTROPHILS % 67.5 % (38.7-80.0); PLATELET COUNT 244 x10e3/uL (140-360); RED BLOOD COUNT 4.28 x10e6/uL (4.3-5.7); RED CELL DISTRIBUTION WIDTH 19.9 % (11.7-14.4)
[2019-04-14 10:32] LABS: INR 0.95; PARTIAL THROMBOPLASTIN TIME 34.1 seconds (23.8-35.5); PROTHROMBIN TIME 13.2 seconds (11.9-14.5)
[2019-04-14 10:42] LABS: ALANINE AMINOTRANSFERASE 14 IU/L (0-55); ALBUMIN 3.4 g/dL (3.5-5.0); ALBUMIN/GLOBULIN RATIO 0.7 (0.8-2.0); ALKALINE PHOSPHATASE 67 IU/L (40-150); ANION GAP 15.6 mmol/L (8-16); BLOOD UREA NITROGEN 16 mg/dL (7-26); BUN/CREATININE RATIO 18 (6-25); CALCIUM 10.2 mg/dL (8.4-10.2); CARBON DIOXIDE 22 mmol/L (22-29); CHLORIDE 104 mmol/L (98-107); CREATINE KINASE 33 IU/L (30-200); CREATININE, SERUM 0.87 mg/dL (0.72-1.25); EST GLOMERULAR FILTRATION RATE > 60 ML/MIN (60-); GLUCOSE 203 mg/dL (74-118); LIPASE 39 U/L (8-78); POTASSIUM 3.6 mmol/L (3.5-5.1); SODIUM 138 mmol/L (136-145)
[2019-04-14] MEDS ORDERED: ASPIRIN81 MG PO (10:58)
[2019-04-14] MEDS ORDERED: DICLOXACILLIN500 MG PO (10:58)
[2019-04-14] MEDS ORDERED: GABAPENTIN300 MG PO (10:58)
[2019-04-14] MEDS ORDERED: COLACE100 MG PO (10:58)
[2019-04-14] MEDS ORDERED: OXYBUTYNIN CHLOR5 M1 PO (10:58)
[2019-04-14] MEDS ORDERED: ELIQUIS5 MG PO (10:58)
[2019-04-14] MEDS ORDERED: HYDROCODON-ACE1 EA12 PO (10:58)
[2019-04-14 11:36] LABS: BILIRUBIN,URINE NEGATIVE (NEGATIVE); CLARITY,URINE CLEAR (CLEAR); COLOR,URINE YELLOW (YELLOW); KETONES,URINE NEGATIVE (NEGATIVE); LEUKOCYTE ESTERASE ,URINE NEGATIVE (NEGATIVE); NITRITE,URINE NEGATIVE (NEGATIVE); PROTEIN,URINE DIPSTICK 2+ (NEGATIVE); URINE UROBILINOGEN 0.2 mg/dL (0.2 - 1)
--- NOTE | 2019-04-14 11:54 | Diagnostic Imaging Report ---
CT BRAIN WO HISTORY: High blood pressure COMPARISON: None. TECHNIQUE: Noncontrast axial scans were obtained from skull base to the vertex. Coronal and sagittal reconstructions obtained from the axial data. One or more of the following dose reduction techniques were used: Automated exposure control, adjustment of the mA and/or kV according to patient size, and/or utilization of iterative reconstruction technique. DISCUSSION: Scalp/Skull: Unremarkable. Brain sulci: Appropriate for patient's age. Ventricles: Normal in size and configuration. No hydrocephalus. Extra-axial spaces: No masses or fluid collections. Carotid siphon and vertebral artery calcifications are present. Parenchyma: Mild periventricular white matter hypodensities are likely chronic microvascular ischemic changes. There is an old small lacunar infarct in the right caudate head. Otherwise, no mass, hemorrhage, or large vascular territory acute infarct. Dural sinuses: No abnormal densities. Sellar/Suprasellar region: Intact. Skull base: Intact. Incidental findings: None. IMPRESSION: 1. No acute intracranial abnormalities. 2. Mild supratentorial chronic microvascular ischemic change. 3. Old small right caudate head lacunar infarct. Signed by: Dr. Matty Godfrey M.D. on 04/14/2019 11:50 AM
[2019-04-14 12:07] LABS: WBC,URINE (MAN) 0-5 /HPF (0-5)
[2019-04-14 12:08] LABS: BACTERIA,URINE FEW /HPF; EPITHELIAL CELLS,URINE FEW /LPF
--- NOTE | 2019-04-14 12:48 | Diagnostic Imaging Report ---
Chest, 1 view, 04/14/2019. History: Hypertension, dizziness. Comparison: None available. Findings: The cardiomediastinal silhouette and pulmonary vasculature are within normal limits for a portable exam. There is no focal consolidation or pleural effusion. Mild degenerative changes are present in the shoulders. There are no acute osseous or soft tissue abnormalities. Impression: No acute cardiopulmonary abnormality. Signed by: Pratik Ellis on 04/14/2019 12:45 PM
[2019-04-14] MEDS ORDERED: CEFTRIAXONE SOD 1 GM/NS 50 ML 50 ML IV STA (12:57)
[2019-04-14 13:46] VITALS: BP 156/94
== END 2019-04-14 13:45 | disposition home or self-care (01) ==
LOC: ER 09:55
DX: I10 Essential (primary) hypertension (principal); R51 Headache; R42 Dizziness and giddiness; E11.9 Type 2 diabetes mellitus without complications; E78.5 Hyperlipidemia, unspecified; K21.9 Gastro-esophageal reflux disease without esophagitis
CPT/HCPCS: 36415; 70450; 71045; 80053; 81001; 82550; 82553; 83690; 83880; 84484; 85025; 85610; 85730; 87086; 93005; 99284; J0696

== ENCOUNTER 2019-04-24 12:58 | Inpatient (IN) | payer MEDICARE ==
[~2019-04-24] VITALS: Ht 162.6 cm; Wt 89.4 kg
[~2019-04-24 12:58] MED LIST changes: +ASPIRIN81 MG PO; +COLACE100 MG PO; +DICLOXACILLIN500 MG PO; +ELIQUIS5 MG PO; +GABAPENTIN300 MG PO; +HYDROCODON-ACE1 EA12 PO; +OXYBUTYNIN CHLOR5 M1 PO
[2019-04-24 14:14] LABS: BASOPHILS % 0.1 % (0.0-1.0); EOSINOPHILS # (AUTO) 0.3 (0.0-0.4); EOSINOPHILS % 4.5 % (0.0-6.0); HEMATOCRIT 36.2 % (38.2-49.6); HEMOGLOBIN 11.1 g/dL (14.0-18.0); LYMPHOCYTES # (AUTO) 0.9 (1.0-3.2); LYMPHOCYTES % 12.4 % (18.0-39.1); MEAN CORPUSCULAR HEMOGLOBIN 26.9 pg (28-32); MEAN CORPUSCULAR HGB CONC 30.7 g/dL (31-35); MEAN CORPUSCULAR VOLUME 87.9 fL (81-99); MONOCYTES # (AUTO) 0.6 (0.2-0.8); MONOCYTES % 9.2 % (4.4-11.3); NEUTROPHILS % 73.5 % (38.7-80.0); PLATELET COUNT 242 x10e3/uL (140-360); RED BLOOD COUNT 4.12 x10e6/uL (4.3-5.7); RED CELL DISTRIBUTION WIDTH 18.7 % (11.7-14.4)
[2019-04-24 14:21] LABS: INR 0.88; PROTHROMBIN TIME 12.4 seconds (11.9-14.5)
[2019-04-24 14:22] LABS: PARTIAL THROMBOPLASTIN TIME 32.2 seconds (23.8-35.5)
[2019-04-24] MEDS ORDERED: SODIUM CHLORIDE 0.9% 1000ML 1,000 ML IV STA (14:27)
[2019-04-24 14:29] LABS: ALANINE AMINOTRANSFERASE 11 IU/L (0-55); ALBUMIN 3.3 g/dL (3.5-5.0); ALBUMIN/GLOBULIN RATIO 0.7 (0.8-2.0); ALKALINE PHOSPHATASE 66 IU/L (40-150); ANION GAP 13.1 mmol/L (8-16); BILIRUBIN,URINE NEGATIVE (NEGATIVE); BLOOD UREA NITROGEN 30 mg/dL (7-26); BUN/CREATININE RATIO 33 (6-25); CALCIUM 9.7 mg/dL (8.4-10.2); CARBON DIOXIDE 25 mmol/L (22-29); CHLORIDE 100 mmol/L (98-107); CLARITY,URINE CLEAR (CLEAR); COLOR,URINE YELLOW (YELLOW); CREATININE, SERUM 0.92 mg/dL (0.72-1.25); EST GLOMERULAR FILTRATION RATE > 60 ML/MIN (60-); GLUCOSE 165 mg/dL (74-118); KETONES,URINE NEGATIVE (NEGATIVE); LEUKOCYTE ESTERASE ,URINE NEGATIVE (NEGATIVE); MAGNESIUM 1.9 MG/DL (1.3-2.1); NITRITE,URINE NEGATIVE (NEGATIVE); POTASSIUM 3.1 mmol/L (3.5-5.1); PROTEIN,URINE DIPSTICK 1+ (NEGATIVE); SODIUM 135 mmol/L (136-145); URINE UROBILINOGEN 0.2 mg/dL (0.2 - 1)
[2019-04-24] MEDS ORDERED: VANCOMYCIN 1GM/NS 250 ML 250 ML IV ONE (14:30)
[2019-04-24] MEDS ORDERED: PIPER-TAZ 3.375 GM 50 ML IV ONE (14:30)
[2019-04-24] MEDS ORDERED: MORPHINE SULFATE INJ 4 MG/ML INJ 1ML IV NR (14:36)
[2019-04-24] MEDS ORDERED: POTASSIUM CHLORIDE 20 MEQ TAB CR PO NR (14:40)
[2019-04-24 14:43] LABS: BACTERIA,URINE MODERATE /HPF
[2019-04-24] MEDS ORDERED: ONDANSETRON HCL INJ 2MG/ML 2ML 2 MG/ML VIAL IV PRN (14:45)
[2019-04-24] MEDS ORDERED: SODIUM CHLORIDE 0.9% 1000ML 1,000 ML IV ONE (14:45)
--- NOTE | 2019-04-24 14:55 | Diagnostic Imaging Report ---
ELBOW RIGHT COMPLETE - 3 views HISTORY: Pain. Cellulitis. COMPARISON: None available. FINDINGS: Bones: No acute displaced fracture. Osseous alignment is within normal limits. Joints: The joint spaces are well-maintained. Soft tissues: Soft tissue swelling. IMPRESSION: No acute osseous abnormality.. Signed by: Dr. Re An M.D. on 04/24/2019 2:51 PM
[2019-04-24] MEDS ORDERED: MORPHINE SULFATE INJ 4 MG/ML INJ 1ML IV PRN (15:15)
--- NOTE | 2019-04-24 15:20 | NUR ---
SED RATE, AND 2ND LACTIC ACID DRAWN
--- NOTE | 2019-04-24 15:40 | NUR ---
REPORT RECEIVED FROM KESHIA IN ER AWAITING FOR PT TO ARRIVE TO FLOOR
[2019-04-24 15:47] VITALS: BP 146/99
[2019-04-24] MEDS ORDERED: POTASSIUM CHLO20 ME1 PO (16:17)
[2019-04-24] MEDS ORDERED: HYDROCHLOROTH12.5 M1 PO (16:17)
[2019-04-24] MEDS ORDERED: DIOVAN HCT 3201 EACH PO (16:17)
[2019-04-24] MEDS ORDERED: AUGMENTIN 875-1 EACH PO (16:17)
[2019-04-24] MEDS ORDERED: COREG12.5 MG PO (16:17)
--- NOTE | 2019-04-24 16:21 | NUR ---
SPOKE WITH PT SON FOR UPDATE ON HOME MEDICATION MED REC NOW UPDATED
[2019-04-24] MEDS ORDERED: DEXTROSE 50% SYRINGE 50 ML IV PRN (16:30)
[2019-04-24] MEDS: INSULIN REGULAR, HUMAN 100 UNIT/1 ML 3ML VIAL SQ SCH ×2 (16:30→20:10)
[2019-04-24] MEDS ORDERED: ACETAMINOPHEN 325 MG TAB PO PRN (16:30)
[2019-04-24 18:21] LABS: CREATINE KINASE 27 IU/L (30-200)
[2019-04-24 19:52] VITALS: BP 145/92
[2019-04-24] MEDS: ATORVASTATIN 10 MG TAB PO SCH (20:14)
[2019-04-24] MEDS: GABAPENTIN 300 MG CAP PO SCH (20:14)
[2019-04-24] MEDS: TRAMADOL HCL 50 MG TAB PO PRN (20:14)
[2019-04-24] MEDS: PIPER-TAZ 3.375 GM 50 ML IV SCH ×2 (21:30→22:18)
[2019-04-24] MEDS ORDERED: SODIUM CHLORIDE 0.9% 250ML 250 ML ONE (21:56)
[2019-04-24 22:00] VITALS: BP 148/96
[2019-04-24] MEDS: CARVEDILOL 12.5 MG TAB PO SCH (22:00)
[2019-04-24 23:58] VITALS: BP 131/81
--- NOTE | 2019-04-25 00:01 | History and Physical ---
PRIMARY CARE PHYSICIAN: Teto Brown MD at [facility]. CHIEF COMPLAINT: Right upper extremity redness and pain. HISTORY OF PRESENT ILLNESS: This is a 68-year-old male with past medical history of hypertension, diabetes, high cholesterol, and GERD, who presented to the ER with complaints of right upper extremity elbow swelling and pain. He reports he has been progressively getting worse for the past four days. insect bite, or laceration to the site. He denies any fever, chills, nausea, or vomiting. He reports the pain has worsened to a point where he is not able to move his elbow due to pain. No rash or laceration noted. We will admit the patient for further evaluation. PAST MEDICAL HISTORY: 1. Hypertension. 2. High cholesterol. 3. Diabetes type 2. 4. Gastroesophageal reflux disease. 5. Prostate cancer. PAST SURGICAL HISTORY: He had prostatectomy with right groin WICHO drain x2. FAMILY MEDICAL HISTORY: He reports mother had diabetes. Father, unknown. SOCIAL HISTORY: He denies any tobacco, alcohol, or illicit drug use. ALLERGIES: HE HAS NO KNOWN ALLERGIES. REVIEW OF SYSTEMS: GENERAL: No acute distress. HEENT: No trauma to the head or sore to the mouth. LUNGS: No shortness of breath or cough. CARDIOVASCULAR: No chest pain or palpitations. GI: No nausea, vomiting, or abdominal pain. NEUROLOGIC: Alert and oriented. No weakness. MUSCULOSKELETAL: Right upper extremity decreased mobility due to swelling and pain. SKIN: Right upper extremity swelling. PHYSICAL EXAMINATION: VITAL SIGNS: Temperature 97.2, pulse is 90, respirations 18, blood pressure is 133/92, pulse ox is 97% on room air. GENERAL: No acute distress. HEENT: Normocephalic, atraumatic. NECK: Supple. LUNGS: Clear to auscultation. CARDIOVASCULAR: Regular rate and rhythm. GI: Soft and nontender. NEUROLOGIC: Alert, awake, oriented x3. MUSCULOSKELETAL: Right upper extremity, limited ROM due to pain. All others intact. SKIN: Swelling at the right upper extremity rash or laceration. PSYCH: . LABORATORY DATA: WBC 11.1, hematocrit 36.2, platelets potassium 3.1. Bun is 30, creatinine is 0.92, estimated GFR is greater than 60. Blood glucose 165, lactic acid 2.1 and trended down to 1.8, magnesium 1.9. AST 12, ALT 11. Creatinine kinase 28, CK-MB 1.0, troponin 0.001, total protein 7.9, albumin 3.3. UA, clear and yellow with protein, negative for leukocyte esterase with 10 to 20 RBCs, no WBCs or bacteria. Bacteria moderate. Blood culture is pending. IMAGING: X-ray of the right elbow, three view, showed no acute osseous abnormalities, but showed soft tissue swelling. IMPRESSION AND PLAN: 1. Right upper extremity swelling and pain, likely due to cellulitis. X-ray showed no osseous abnormalities. Afebrile. We will continue with vanc and Zosyn for cellulitis. Pain management with tramadol. 2. Hypokalemia, he was given 40 mEq of potassium. We will recheck labs in the morning. 3. Lactic acidosis with lactic acid of 2.1. The patient is afebrile, vital signs are stable and trended down to 1.8. 4. Hypertension. We will resume home medications. 5. Diabetes type 2. We will hold p.o. diabetic medications and cover with sliding scale insulin. 6. High cholesterol. We will continue on statin. 7. Gastroesophageal reflux disease. We will continue on omeprazole. 8. History of prostate cancer, aware. 9. Deep venous thrombosis prophylaxis. Heparin subcu b.i.d. Dictated by RAJENDRA Tim Lenka Vega MD MY/MODL /[id number]
[2019-04-25] MEDS ORDERED: VANCOMYCIN 1GM/NS 250 ML 250 ML IV SCH (03:00)
[2019-04-25] MEDS: TRAMADOL HCL 50 MG TAB PO PRN ×2 (03:00→20:36)
[2019-04-25 04:00] VITALS: BP 125/81
[2019-04-25] MEDS: PIPER-TAZ 3.375 GM 50 ML IV SCH ×4 (05:00→23:30)
[2019-04-25] MEDS: CARVEDILOL 12.5 MG TAB PO SCH ×3 (05:31→22:00)
[2019-04-25 05:52] LABS: BASOPHILS % 0.1 % (0.0-1.0); EOSINOPHILS # (AUTO) 0.3 (0.0-0.4); EOSINOPHILS % 4.6 % (0.0-6.0); HEMATOCRIT 35.8 % (38.2-49.6); HEMOGLOBIN 10.9 g/dL (14.0-18.0); MEAN CORPUSCULAR HEMOGLOBIN 26.8 pg (28-32); MEAN CORPUSCULAR HGB CONC 30.4 g/dL (31-35); MONOCYTES # (AUTO) 0.6 (0.2-0.8); MONOCYTES % 8.9 % (4.4-11.3); NEUTROPHILS # (AUTO) 5.2 (2.1-6.9); PLATELET COUNT 259 x10e3/uL (140-360); RED BLOOD COUNT 4.07 x10e6/uL (4.3-5.7); RED CELL DISTRIBUTION WIDTH 18.6 % (11.7-14.4)
[2019-04-25 06:14] LABS: ALANINE AMINOTRANSFERASE 11 IU/L (0-55); ALBUMIN 3.2 g/dL (3.5-5.0); ALBUMIN/GLOBULIN RATIO 0.7 (0.8-2.0); ALKALINE PHOSPHATASE 61 IU/L (40-150); ANION GAP 13.1 mmol/L (8-16); BLOOD UREA NITROGEN 18 mg/dL (7-26); BUN/CREATININE RATIO 24 (6-25); CALCIUM 9.5 mg/dL (8.4-10.2); CARBON DIOXIDE 25 mmol/L (22-29); CHLORIDE 103 mmol/L (98-107); CREATININE, SERUM 0.76 mg/dL (0.72-1.25); EST GLOMERULAR FILTRATION RATE > 60 ML/MIN (60-); GLUCOSE 123 mg/dL (74-118); POTASSIUM 3.1 mmol/L (3.5-5.1); SODIUM 138 mmol/L (136-145)
[2019-04-25 06:43] LABS: CREATINE KINASE MB 0.8 ng/mL (0-5.0)
[2019-04-25] MEDS ORDERED: POTASSIUM CHLORIDE 10MEQ EA PO ONE (07:30)
[2019-04-25 08:00] VITALS: BP 127/78
[2019-04-25] MEDS: GABAPENTIN 300 MG CAP PO SCH ×3 (08:00→20:29)
[2019-04-25] MEDS: AMLODIPINE BESYLATE 10 MG TAB PO SCH (08:00)
[2019-04-25] MEDS: INSULIN REGULAR, HUMAN 100 UNIT/1 ML 3ML VIAL SQ SCH ×4 (08:00→20:29)
[2019-04-25] MEDS: ASPIRIN 81 MG CHEW TAB PO SCH (08:00)
[2019-04-25] MEDS: PANTOPRAZOLE SOD 40 MG TABEC PO SCH (08:00)
[2019-04-25] MEDS: POTASSIUM CHLORIDE 20 MEQ TAB CR PO SCH (08:00)
[2019-04-25] MEDS: HYDROCHLOROTHIAZIDE 25 MG TAB PO SCH (08:00)
[2019-04-25 08:04] VITALS: BP 127/78
[2019-04-25 12:07] VITALS: BP 121/88
--- NOTE | 2019-04-25 15:19 | Progress Note ---
DATE: 04/25/2019 CHIEF COMPLAINT: Right upper extremity edema and pain. SUBJECTIVE: The patient seen in the room, afebrile, vital signs stable, reports right elbow or forearm pain is improving. Did not need any pain medication today. Able to move his arm more today. PHYSICAL EXAMINATION: VITAL SIGNS: Temperature 96.1, pulse is 72, respirations 18, blood pressure 121/88, and pulse ox is 96% on room air. GENERAL: No acute distress. HEENT: Normocephalic and atraumatic. NECK: Supple. LUNGS: Clear to auscultation. CARDIOVASCULAR: Regular rate and rhythm. GI: Soft and nontender. NEUROLOGIC: Alert, awake, and oriented x3. MUSCULOSKELETAL: Right upper extremity swelling and limited ROM due to pain. SKIN: Swelling in the right upper extremity, no rash or laceration noted. LABORATORY DATA: WBC 7.1, hemoglobin is 10.9, hematocrit is 35.8, and platelet is 259. ESR 68. Sodium 138, potassium 3.1, and creatinine is 0.76. Estimated GFR is greater than 60. IMPRESSION: 1. Right upper extremity cellulitis. We will continue with vancomycin and Zosyn for cellulitis. Pain management with tramadol. 2. Hypokalemia. We will replace and recheck in the morning. 3. Hypertension. We will resume home medication. 4. Diabetes type 2. We will check blood sugar and cover with sliding scale insulin. 5. High cholesterol. Continue on statin. 6. Gastroesophageal reflux disease. Continue omeprazole. 7. History of prostate cancer, aware. 8. Deep vein thrombosis prophylaxis. Heparin subcutaneous b.i.d. Dictated by RAJENDRA Tim Lenka Vega MD MY/MODL /[id number]
[2019-04-25] MEDS: VANCOMYCIN 1GM/NS 250 ML 250 ML IV SCH (15:35)
[2019-04-25 15:49] VITALS: BP 122/76
[2019-04-25 20:00] VITALS: BP 130/79
[2019-04-25] MEDS: ATORVASTATIN 10 MG TAB PO SCH (20:29)
[2019-04-26 00:45] VITALS: BP 130/81
[2019-04-26] MEDS: VANCOMYCIN 1GM/NS 250 ML 250 ML IV SCH (03:30)
[2019-04-26 04:00] VITALS: BP 132/89
[2019-04-26] MEDS: CARVEDILOL 12.5 MG TAB PO SCH ×2 (06:00→14:04)
[2019-04-26] MEDS: PIPER-TAZ 3.375 GM 50 ML IV SCH ×2 (06:00→11:31)
[2019-04-26 06:16] LABS: ANION GAP 13.4 mmol/L (8-16); BLOOD UREA NITROGEN 15 mg/dL (7-26); BUN/CREATININE RATIO 19 (6-25); CALCIUM 8.9 mg/dL (8.4-10.2); CARBON DIOXIDE 27 mmol/L (22-29); CHLORIDE 104 mmol/L (98-107); EST GLOMERULAR FILTRATION RATE > 60 ML/MIN (60-); GLUCOSE 134 mg/dL (74-118); POTASSIUM 3.4 mmol/L (3.5-5.1); SODIUM 141 mmol/L (136-145)
--- NOTE | 2019-04-26 07:00 | NUR ---
BEDSIDE ROUNDS COMPLETE NO DISTRESS NOTED, UPDATED ON POC VOICED UNDERSTANDING, DENIES PAIN AT THIS TIME, CALL LIGHT IN REACH WILL CONTINUE TO MONITOR
[2019-04-26] MEDS ORDERED: ONDANSETRON HCL 4 MG ORAL DISINTEGRATING TAB PO PRN (07:30)
[2019-04-26] MEDS: INSULIN REGULAR, HUMAN 100 UNIT/1 ML 3ML VIAL SQ SCH ×2 (07:30→11:30)
[2019-04-26 08:07] VITALS: BP 141/80
[2019-04-26 08:12] VITALS: BP 141/80
[2019-04-26] MEDS: PANTOPRAZOLE SOD 40 MG TABEC PO SCH (08:58)
[2019-04-26] MEDS: GABAPENTIN 300 MG CAP PO SCH (08:58)
[2019-04-26] MEDS: AMLODIPINE BESYLATE 10 MG TAB PO SCH (08:58)
[2019-04-26] MEDS: HYDROCHLOROTHIAZIDE 25 MG TAB PO SCH (08:59)
[2019-04-26] MEDS: ASPIRIN 81 MG CHEW TAB PO SCH (08:59)
[2019-04-26] MEDS: POTASSIUM CHLORIDE 20 MEQ TAB CR PO SCH (08:59)
[2019-04-26 11:22] VITALS: BP 160/90
[2019-04-26] MEDS ORDERED: CLINDAMYCIN HC150 MG PO (12:27)
--- NOTE | 2019-04-26 13:29 | Diagnostic Imaging Report ---
TECHNIQUE: Continued tomography imaging of the RIGHT ELBOW was performed with injected contrast. Dose modulation, iterative reconstruction, and/or weight based adjustment of the mA/kV was utilized to reduce the radiation dose to as low as reasonably achievable. HISTORY: Pain and swelling COMPARISON: None available. FINDINGS: Skin thickening and subcutaneous edema around the posterior aspect of the elbow. No abscess. No significant joint effusion. No acute fracture or cortical erosion to suggest osteomyelitis. Scattered calcifications along the common flexor origin and triceps insertion. IMPRESSION: Cellulitis around the posterior elbow Signed by: Dr. Omid Baxter M.D. on 04/26/2019 1:26 PM
[2019-04-26] MEDS ORDERED: SODIUM CHLORIDE 0.9% 50ML 50 ML ONE (13:55)
[2019-04-26] MEDS ORDERED: IOPAMIDOL 370 MG/ML 200 ML INFUS..BTL INJ ONE (13:55)
--- NOTE | 2019-04-27 02:09 | Discharge Summary ---
PRIMARY CARE PHYSICIAN: Dr. Teto Brown at [facility]. FINAL DIAGNOSES: 1. Right upper extremity cellulitis. 2. Hypokalemia. 3. Hypertension. 4. Diabetes type 2. 5. High cholesterol. 6. Gastroesophageal reflux disease. 7. History of prostate carcinoma. CONSULTANTS: None. PROCEDURES: None. HISTORY: Per HPI. HOSPITAL COURSE: This is a 68-year-old male with past medical history of hypertension, diabetes, high cholesterol, and prostate CA, presented with right upper extremity swelling and pain. X-ray showed a soft tissue swelling with no acute osseous abnormality. He was started on vancomycin and Zosyn for treatment of cellulitis. Cultures were sent, which were negative in 48 hours. There was no white count increased. CT of the upper extremity showed cellulitis at the posterior elbow with no significant joint effusion or no fracture or erosion to suggest osteomyelitis. The pain is much improved today. He is able to move his arm/elbow more with some pain. We will discharge home on clindamycin for cellulitis. PHYSICAL EXAMINATION: VITAL SIGNS: Temperature is 97.2, pulse is 75, respirations 18, blood pressure 160/90, pulse is 98% on room air. GENERAL: No acute distress. HEENT: Normocephalic, atraumatic. NECK: Supple and midline. LUNGS: Clear to auscultation. CARDIOVASCULAR: Regular rate and rhythm. GI: Soft and nontender. NEUROLOGIC: Alert, awake, and oriented x3. MUSCULOSKELETAL: Right upper extremity swelling with improved range of motion. SKIN: Right forearm elbow area swelling. No redness. CONDITION AT DISCHARGE: Stable and improved. DISCHARGE MEDICATIONS: See medication reconciliation list, added clindamycin for completion of therapy. FOLLOWUP: With primary care doctor in 1 to 2 weeks. TIME SPENT: Total time of discharge is 35 minutes. Dictated by RAJENDRA Tim Lenka Vega MD MY/MODL /[id number] cc: Teto Brown MD
== END 2019-04-26 15:35 | disposition home or self-care (01) | DRG 641 ==
LOC: ER 12:58 → ERHOLD 15:29 → MED/SURG 15:45
PROVIDERS: ADMIT Internal Medicine; ATTEND Internal Medicine
DX: E87.6 Hypokalemia (principal); L03.113 Cellulitis of right upper limb; E87.2 Acidosis; E11.9 Type 2 diabetes mellitus without complications; E78.00 Pure hypercholesterolemia, unspecified; K21.9 Gastro-esophageal reflux disease without esophagitis; Z85.46 Personal history of malignant neoplasm of prostate; I10 Essential (primary) hypertension
CPT/HCPCS: 36415; 80048; 80053; 80202; 81001; 82550; 82553; 82948; 83605; 83735; 84484; 85025; 85610; 85651; 85730; 87040; 96372; 99284; J1817; J2270; J2543; J3370; J7030; J7050; Q9967

== ENCOUNTER 2020-05-01 21:28 | Inpatient (IN) | payer MEDICARE ==
[~2020-05-01] VITALS: Ht 162.6 cm; Wt 98.9 kg
[~2020-05-01 21:28] MED LIST changes: +AUGMENTIN 875-1 EACH PO; +CLINDAMYCIN HC150 MG PO; +COREG12.5 MG PO; +DIOVAN HCT 3201 EACH PO; +HYDROCHLOROTH12.5 M1 PO; +POTASSIUM CHLO20 ME1 PO
[2020-05-01 22:53] LABS: BASOPHILS % 0.1 % (0.0-1.0); EOSINOPHILS # (AUTO) 0.4 (0.0-0.4); EOSINOPHILS % 6.3 % (0.0-6.0); HEMATOCRIT 45.4 % (38.2-49.6); HEMOGLOBIN 14.7 g/dL (14.0-18.0); LYMPHOCYTES # (AUTO) 0.8 (1.0-3.2); LYMPHOCYTES % 11.9 % (18.0-39.1); MEAN CORPUSCULAR HEMOGLOBIN 28.2 pg (28-32); MEAN CORPUSCULAR HGB CONC 32.4 g/dL (31-35); MONOCYTES # (AUTO) 0.6 (0.2-0.8); NEUTROPHILS # (AUTO) 5.1 (2.1-6.9); NEUTROPHILS % 72.8 % (38.7-80.0); PLATELET COUNT 253 x10e3/uL (140-360); RED BLOOD COUNT 5.22 x10e6/uL (4.3-5.7); RED CELL DISTRIBUTION WIDTH 15.4 % (11.7-14.4)
[2020-05-01 22:56] LABS: BILIRUBIN,URINE NEGATIVE (NEGATIVE); CLARITY,URINE CLEAR (CLEAR); COLOR,URINE YELLOW (YELLOW); KETONES,URINE NEGATIVE (NEGATIVE); LEUKOCYTE ESTERASE ,URINE NEGATIVE (NEGATIVE); NITRITE,URINE NEGATIVE (NEGATIVE); PROTEIN,URINE DIPSTICK >=300 (NEGATIVE); URINE UROBILINOGEN 0.2 mg/dL (0.2 - 1)
[2020-05-01 23:06] LABS: AMORPHOUS SEDIMENT,URINE FEW (FEW); BACTERIA,URINE FEW /HPF; EPITHELIAL CELLS,URINE FEW /LPF; RBC,URINE 0-5 /HPF (0-5); WBC,URINE (MAN) 0-5 /HPF (0-5)
[2020-05-01 23:13] LABS: ALBUMIN 3.8 g/dL (3.5-5.0); ALBUMIN/GLOBULIN RATIO 1.2 (0.8-2.0); AMYLASE 127 U/L (25-125); ANION GAP 16.7 mmol/L (8-16); CALCIUM 9.1 mg/dL (8.4-10.2); CREATININE, SERUM 1.31 mg/dL (0.72-1.25); LIPASE 121 U/L (8-78); POTASSIUM 3.7 mmol/L (3.5-5.1)
--- OUTSIDE RECORDS SUMMARY | 2020-05-02 00:18 | XMS REPORT | Clinical Summary ---
Author Author [facility] L [facility] Organization [facility] [facility] Address Unknown Phone Unavailable Care Team Providers Care Turkey Cleaner Name Role Phone Shiva Leung MD PCP Allergies No Known Active Allergies Medications End Date Status Medication Sig [...] Active amLODIPine (NORVASC) 10 TOME ANN-MARIE 0 07/14/ 201 mg tablet TABLETA TODOS 8 LOS D? Active JARDIANCE 25 mg tablet TOME ANN-MARIE 0 12/20/2 01 TABLETA TODOS 8 LOS D? EN LA MA?KESHIA Active GLYXAMBI 25-5 mg tablet Take 1 tablet 0 07/16/ 201 by mouth 8 daily. Active LANSOPRAZOLE ORAL Take by 0 mouth. Active Problems Problem Noted Date Prostate cancer 02/16/2018 Surgical History Surgery Date Site/Laterality Comments PROSTATE BIOPSY PROSTATECTOMY, 02/16/2018 N/A Procedure: ROBO TIC ASSISTED LAPAROSCOPIC LAPAROSCOPIC, PROSTATECTOMY, BILATERAL PE LVIC LYMPH NODE ROBOT-ASSISTED DISSECTION, URETHROPEXY; S urgeon: Nestor Farfan MD; Location: [facility]; Service: Urology; Laterality: N/A; Medical devices from this surgery are i n the Implants section. Medical History Medical History Date Comments Diabetes mellitus (HCC) Prostate cancer (HCC) denies chemo or xrt Anesthesia Pt...nphap, CFROM / Family. ...nfhap Hypertension denies sob, cp, mi, palpita tion etc GERD (gastroesophageal reflux disease) medication m anaged Hypercholesteremia Social History Date Tobacco Use Types Packs/Day Years Used Never Smoker Smokeless Tobacco: Never Used Tobacco Cessation: Counseling Given: No Drinks/Week oz/Week Comments Alcohol Use No Sex Assigned at Date Recorded Not on file Last Filed Vital Signs Not on file Plan of Treatment Health Maintenance Due Date Last Done Comments DIABETES: RETINAL EYE 1961 EXAM DIABETIC FOOT EXAM 1961 COLONOSCOPY SCREENING 2001 SHINGLES VACCINES (#2) 11/11/2015 09/11/2015 INFLUENZA VACCINE 01/22/2020 03/30/2019, 04/01/2018 65+ PNEUMOCOCCAL VACCINE Completed 04/22/2018, 09/11/2015, 03/05/2010, Additional history exists Implants Device Identifier Shelf Expiration Date Model / Serial / L ot Implanted Type Area Manufactur er 08/31/2022 [id number] / / [id number] [employer] Aplr Surgical N/A: N/A [id number]; CLOSURE Implanted: Qty: 2 on 02/16/2018 by [employer]; Nestor Sharpe MD at [facility] Surgical Wires 10/07/2022 [id number] / / [id number] [employer] Aplr Surgical N/A: N/A TAN [facility] - [id number] Implants; CLOSURE Implanted: Qty: 1 on 02/16/2018 by [employer]; Nestor Sharpe MD at [facility] Surgical Wires 10/07/2022 [id number] / / [id number] Cl[employer] Aplr Surgical N/A: N/A TAN [facility] - [id number] Implants; CLOSURE Implanted: Qty: 1 on 02/16/2018 by [employer]; Nestor Sharpe, MD at [facility] Extenders; [facility] Surgical Wires 08/28/2022 [id number] / / [id number] Clip [employer] Aplr Surgical N/A: [facility] [id number] Implants; CLOSURE Implanted: Qty: 2 on 02/16/2018 by [employer]; Nestor Sharpe MD at [facility] Ext[employer]; [facility] Surgical Wires 08/18/2022 [id number] / / [id number] [employer] Aplr Surgical N/A: N/A [facility] - [id number] Implants; CLOSURE Implanted: Qty: 1 on 02/16/2018 by [employer]; Nestor Sharpe MD at [facility] Ext[employer]; [facility] Surgical Wires Results Not on fileafter 05/02/2019 Insurance Type Payer Benefit Subscriber ID Effective Phone Address Plan / Dates Group PPO BCBS BCBS [id number] CHOICE resent PPO/DIMPLE ADRIAN PPO Advance Directives For more information, please contact: [phone] Patient Park Aide Explanation Type Date Recorded Advance Directives, 01/26/2018 11:59 AM Living Will and Medical Power of Framing Carpenter
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
--- OUTSIDE RECORDS SUMMARY | 2020-05-02 00:18 | XMS REPORT | Continuity of Care Document ---
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 Reference Range Interpretation Comments WHITE BLOOD CELL COUNT (BEAKER) (test code = 775) 7.2 K/ L 3.5- 10.5 RED BLOOD CELL COUNT (BEAKER) (test code = 761) 3.34 M/ L 4.63-6 .08 L HEMOGLOBIN (BEAKER) (test code = 410) 8.2 GM/DL 13.7-17.5 L HEMATOCRIT (BEAKER) (test code = 411) 28.2 % 40.1-51.0 L MEAN CORPUSCULAR VOLUME (BEAKER) (test code = 753) 84.4 fL 79. 0-92.2 MEAN CORPUSCULAR HEMOGLOBIN (BEAKER) (test code = 751) 24.6 pg 25.7-32.2 L MEAN CORPUSCULAR HEMOGLOBIN CONC (BEAKER) (test code = 752) 29.1 GM/DL 32.3-36.5 L RED CELL DISTRIBUTION WIDTH (BEAKER) (test code = 412) 17.1 % 11.6-14.4 H PLATELET COUNT (BEAKER) (test code = 756) 433 K/CU MM 150-450 MEAN PLATELET VOLUME (BEAKER) (test code = 754) 9.0 fL 9.4-12 .4 L NUCLEATED RED BLOOD CELLS (BEAKER) (test code = 413) 0 /100 WBC 0 -0 POCT-GLUCOSE [id number] 21:19:00* Test Item Value Reference Range Interpretation Comments POC-GLUCOSE METER (BEAKER) (test code = 1538) 219 mg/dL 70-110 H TESTED AT [address] [address] BODY FLUID CELL COUNT WITH [id number] 18:24:00* Test Item Value Reference Range Interpretation Comments APPEARANCE FLUID (BEAKER) (test code = 510) Turbid Clear A COLOR FLUID (BEAKER) (test code = 511) Red Colorless, Stra w A RBC FLUID (BEAKER) (test code = 513) 787548 /cu mm <=1 H ADJUSTED WBC FLUID (BEAKER) (test code = 1691) 79973 /cu mm <=5 H LINING CELLS (BEAKER) (test code = 1590) [address]17[address] /cu mm <=1 H NEUTROPHILS FLUID (BEAKER) (test code = 1656) 52 % LYMPHS FLUID (BEAKER) (test code = 488) 35 % MONO/MACROPHAGE FLUID (BEAKER) (test code = 489) 6 % EOSINOPHILS FLUID (BEAKER) (test code = 491) 0 % BASO FLUID (BEAKER) (test code = 492) 0 % CONTAINER BODY FLUID (BEAKER) (test code = 2873) EDTA Tube POCT-GLUCOSE [id number] 17:44:00* Test Item Value Reference Range Interpretation Comments POC-GLUCOSE METER (BEAKER) (test code = 1538) 223 mg/dL 70-110 H TESTED AT [facility] [address] [facility] [address] CBC W/PLT COUNT & AUTO [id number] 17:12:00* Test Item Value Reference Range Interpretation Comments WHITE BLOOD CELL COUNT (BEAKER) (test code = 775) 7.6 K/ L 3.5- 10.5 RED BLOOD CELL COUNT (BEAKER) (test code = 761) 3.20 M/ L 4.63-6 .08 L HEMOGLOBIN (BEAKER) (test code = 410) 8.0 GM/DL 13.7-17.5 L HEMATOCRIT (BEAKER) (test code = 411) 27.4 % 40.1-51.0 L MEAN CORPUSCULAR VOLUME (BEAKER) (test code = 753) 85.6 fL 79. 0-92.2 MEAN CORPUSCULAR HEMOGLOBIN (BEAKER) (test code = 751) 25.0 pg 25.7-32.2 L MEAN CORPUSCULAR HEMOGLOBIN CONC (BEAKER) (test code = 752) 29.2 GM/DL 32.3-36.5 L RED CELL DISTRIBUTION WIDTH (BEAKER) (test code = 412) 17.1 % 11.6-14.4 H PLATELET COUNT (BEAKER) (test code = 756) 449 K/CU MM 150-450 MEAN PLATELET VOLUME (BEAKER) (test code = 754) 9.4 fL 9.4-12 .4 NUCLEATED RED BLOOD CELLS (BEAKER) (test code = 413) 0 /100 WBC 0 -0 NEUTROPHILS RELATIVE PERCENT (BEAKER) (test code = 429) 72 % LYMPHOCYTES RELATIVE PERCENT (BEAKER) (test code = 430) 14 % MONOCYTES RELATIVE PERCENT (BEAKER) (test code = 431) 9 % EOSINOPHILS RELATIVE PERCENT (BEAKER) (test code = 432) 4 % BASOPHILS RELATIVE PERCENT (BEAKER) (test code = 437) 0 % NEUTROPHILS ABSOLUTE COUNT (BEAKER) (test code = 670) 5.40 K/ L 1.78-5.38 H LYMPHOCYTES ABSOLUTE COUNT (BEAKER) (test code = 414) 1.06 K/ L 1.32-3.57 L MONOCYTES ABSOLUTE COUNT (BEAKER) (test code = 415) 0.70 K/ L 0. 30-0.82 EOSINOPHILS ABSOLUTE COUNT (BEAKER) (test code = 416) 0.29 K/ L 0.04-0.54 BASOPHILS ABSOLUTE COUNT (BEAKER) (test code = 417) 0.02 K/ L 0. 01-0.08 IMMATURE GRANULOCYTES-RELATIVE PERCENT (BEAKER) (test code = 2801) 1 % 0-1 [id number] 13:11:00* Test Item Value Reference Range Interpretation Comments PARTIAL THROMBOPLASTIN TIME (BEAKER) (test code = 760) 86.2 seconds 22.5-36.0 H POCT-GLUCOSE [id number] 11:55:00* Test Item Value Reference Range Interpretation Comments POC-GLUCOSE METER (BEAKER) (test code = 1538) 261 mg/dL 70-110 H TESTED AT [place] [id number] [facility] [address] POCT-GLUCOSE [id number] 07:44:00* Test Item Value Reference Range Interpretation Comments POC-GLUCOSE METER (BEAKER) (test code = 1538) 175 mg/dL 70-110 H TESTED AT [address] [address] BASIC METABOLIC [id number] 05:43:00* Test Item Value Reference Range Interpretation Comments SODIUM (BEAKER) (test code = 381) 134 meq/L 136-145 L POTASSIUM (BEAKER) (test code = 379) 3.8 meq/L 3.5-5.1 CHLORIDE (BEAKER) (test code = 382) 101 meq/L 98-107 CO2 (BEAKER) (test code = 355) 25 meq/L 22-29 BLOOD UREA NITROGEN (BEAKER) (test code = 354) 13 mg/dL 7-21 CREATININE (BEAKER) (test code = 358) 0.96 mg/dL 0.57-1.25 GLUCOSE RANDOM (BEAKER) (test code = 652) 173 mg/dL 70-105 H CALCIUM (BEAKER) (test code = 697) 8.6 mg/dL 8.4-10.2 EGFR (BEAKER) (test code = 1092) 78 mL/min/1.73 sq m ESTIMATED GFR IS NOT ACCURATE CREATININE CLEARANCE IN PREDICTING GLOMERULAR FILTRATION RATE. ESTIMATED GFR IS NOT APPLICABLE FOR DIALYSIS PATIENTS. [id number] 05:22:00* Test Item Value Reference Range Interpretation Comments PARTIAL THROMBOPLASTIN TIME (BEAKER) (test code = 760) 63.2 seconds 22.5-36.0 H [id number] 21:35:00* Test Item Value Reference Range Interpretation Comments PARTIAL THROMBOPLASTIN TIME (BEAKER) (test code = 760) 70.7 seconds 22.5-36.0 H POCT-GLUCOSE [id number] 21:02:00* Test Item Value Reference Range Interpretation Comments POC-GLUCOSE METER (BEAKER) (test code = 1538) 238 mg/dL 70-110 H TESTED AT [address] [address] POCT-GLUCOSE [id number] 16:28:00* Test Item Value Reference Range Interpretation Comments POC-GLUCOSE METER (BEAKER) (test code = 1538) 193 mg/dL 70-110 H TESTED AT [address] [address] POCT-GLUCOSE [id number] 13:01:00* Test Item Value Reference Range Interpretation Comments POC-GLUCOSE METER (BEAKER) (test code = 1538) 292 mg/dL 70-110 H TESTED AT [address] [address] VANCOMYCIN LEVEL, [id number] 11:02:00* Test Item Value Reference Range Interpretation Comments VANCOMYCIN TROUGH (BEAKER) (test code = 522) 8.3 ug/mL 10.0-20.0 L [id number] 10:46:00* Test Item Value Reference Range Interpretation Comments PARTIAL THROMBOPLASTIN TIME (BEAKER) (test code = 760) 56.5 seconds 22.5-36.0 H POCT-GLUCOSE [id number] 08:01:00* Test Item Value Reference Range Interpretation Comments POC-GLUCOSE METER (BEAKER) (test code = 1538) 156 mg/dL 70-110 H TESTED AT [facility] [address] [facility] [address] BASIC METABOLIC [id number] 06:57:00* Test Item Value Reference Range Interpretation Comments SODIUM (BEAKER) (test code = 381) 132 meq/L 136-145 L POTASSIUM (BEAKER) (test code = 379) 3.7 meq/L 3.5-5.1 CHLORIDE (BEAKER) (test code = 382) 99 meq/L 98-107 CO2 (BEAKER) (test code = 355) 25 meq/L 22-29 BLOOD UREA NITROGEN (BEAKER) (test code = 354) 14 mg/dL 7-21 CREATININE (BEAKER) (test code = 358) 0.96 mg/dL 0.57-1.25 GLUCOSE RANDOM (BEAKER) (test code = 652) 138 mg/dL 70-105 H CALCIUM (BEAKER) (test code = 697) 8.6 mg/dL 8.4-10.2 EGFR (BEAKER) (test code = 1092) 78 mL/min/1.73 sq m ESTIMATED GFR IS NOT ACCURATE CREATININE CLEARANCE IN PREDICTING GLOMERULAR FILTRATION RATE. ESTIMATED GFR IS NOT APPLICABLE FOR DIALYSIS PATIENTS. [id number] 06:22:00* Test Item Value Reference Range Interpretation Comments PARTIAL THROMBOPLASTIN TIME (BEAKER) (test code = 760) 73.1 seconds 22.5-36.0 H [id number] 23:09:00* Test Item Value Reference Range Interpretation Comments PARTIAL THROMBOPLASTIN TIME (BEAKER) (test code = 760) 54.9 seconds 22.5-36.[address], DRAINAGE, [id number] 21:32:00Reason for exam:->right ileopsoas abscess FINAL REPORT PROCEDURE: CT-guided drainage of a right harvinder opsoas abscess. Dose modulation, iterative reconstruction, and/or weight-based a djustment of the mA/kV was utilized to reduce the radiation dose to as low as re asonably achievable. INDICATION: Right iliopsoas abscess. COMPARISON: Recent out side facility CT. SEDATION: Intravenous moderate sedation was administered by diology nursing and monitored under the direction of the undersigned radiologist . The patient's vital signs were monitored throughout the procedure and recorded in the patient's medical record by radiology nursing. Total intraservice time of sedation was 25 minutes. MEDICATIONS: 1 mg Versed, 50 mcg fentanyl DESCRIPTION: After obtaining informed written consent, the patient was brought to the [facility] room and placed in the supine position. Preliminary CT scan revealed a rig ht iliopsoas abscess. A clear path to the collection was identified. The overlyi ng skin was prepped and draped in the usual, sterile fashion and local 2% lidoca ine anesthesia was administered. Under CT guidance, and 19-gauge needle was intr oduced into the right psoas fluid collection and a path to a void the location o f the deep circumflex iliac artery. A 19-gauge needle was inserted into the flui d collection and a wire was placed through the needle. After dilation with a 7 F rench dilator, an 8 [place] catheter was inserted into the fluid collection. Appr oximately 30 mL of perilymphatic fluid was aspirated. The catheter was affixed t o the skin and connected to the suction bulb. Samples were sent for analysis. Po st procedure scan showed no immediate complications. IMPRESSION: Successful plac ement of an 8 [place]ian catheter into a right iliopsoas abscess. Signed: Quentin Cunha MDReport Verified Date/Time: 03/20/2019 21:32:44 Reading Location: [facility] C013Y CT Body Reading Room Electronically signed by: QUENTIN CUNHA MD on 09:32 PM POCT-GLUCOSE [id number] 21:16:00* Test Item Value Reference Range Interpretation Comments POC-GLUCOSE METER (BEAKER) (test code = 1538) 182 mg/dL 70-110 H TESTED AT [place] [id number] [facility] [address] POCT-GLUCOSE [id number] 17:42:00* Test Item Value Reference Range Interpretation Comments POC-GLUCOSE METER (BEAKER) (test code = 1538) 157 mg/dL 70-110 H TESTED AT [address] [address] [id number] 17:21:00* Test Item Value Reference Range Interpretation Comments PARTIAL THROMBOPLASTIN TIME (BEAKER) (test code = 760) 45.9 seconds 22.5-36.0 H POCT-GLUCOSE [id number] 10:53:00* Test Item Value Reference Range Interpretation Comments POC-GLUCOSE METER (BEAKER) (test code = 1538) 128 mg/dL 70-110 H TESTED AT [facility] [address] [facility] [address] BASIC METABOLIC [id number] 05:58:00* Test Item Value Reference Range Interpretation Comments SODIUM (BEAKER) (test code = 381) 135 meq/L 136-145 L POTASSIUM (BEAKER) (test code = 379) 3.6 meq/L 3.5-5.1 CHLORIDE (BEAKER) (test code = 382) 101 meq/L 98-107 CO2 (BEAKER) (test code = 355) 23 meq/L 22-29 BLOOD UREA NITROGEN (BEAKER) (test code = 354) 11 mg/dL 7-21 CREATININE (BEAKER) (test code = 358) 0.80 mg/dL 0.57-1.25 GLUCOSE RANDOM (BEAKER) (test code = 652) 126 mg/dL 70-105 H CALCIUM (BEAKER) (test code = 697) 9.0 mg/dL 8.4-10.2 EGFR (BEAKER) (test code = 1092) 96 mL/min/1.73 sq m ESTIMATED GFR IS NOT ACCURATE CREATININE CLEARANCE IN PREDICTING GLOMERULAR FILTRATION RATE. ESTIMATED GFR IS NOT APPLICABLE FOR DIALYSIS PATIENTS. [id number] 05:08:00* Test Item Value Reference Range Interpretation Comments PARTIAL THROMBOPLASTIN TIME (BEAKER) (test code = 760) 48.7 seconds 22.5-36.0 H POCT-GLUCOSE [id number] 21:27:00* Test Item Value Reference Range Interpretation Comments POC-GLUCOSE METER (BEAKER) (test code = 1538) 225 mg/dL 70-110 H TESTED AT [facility] [address] [facility] [address] [id number] 20:36:00* Test Item Value Reference Range Interpretation Comments PHOSPHORUS (BEAKER) (test code = 604) 3.7 mg/dL 2.3-4.7 [id number] 20:36:00* Test Item Value Reference Range Interpretation Comments MAGNESIUM (BEAKER) (test code = 627) 1.7 mg/dL 1.6-2.6 BASIC METABOLIC [id number] 20:36:00* Test Item Value Reference Range Interpretation Comments SODIUM (BEAKER) (test code = 381) 133 meq/L 136-145 L POTASSIUM (BEAKER) (test code = 379) 3.8 meq/L 3.5-5.1 CHLORIDE (BEAKER) (test code = 382) 100 meq/L 98-107 CO2 (BEAKER) (test code = 355) 22 meq/L 22-29 BLOOD UREA NITROGEN (BEAKER) (test code = 354) 14 mg/dL 7-21 CREATININE (BEAKER) (test code = 358) 0.84 mg/dL 0.57-1.25 GLUCOSE RANDOM (BEAKER) (test code = 652) 159 mg/dL 70-105 H CALCIUM (BEAKER) (test code = 697) 9.2 mg/dL 8.4-10.2 EGFR (BEAKER) (test code = 1092) 91 mL/min/1.73 sq m ESTIMATED GFR IS NOT ACCURATE CREATININE CLEARANCE IN PREDICTING GLOMERULAR FILTRATION RATE. ESTIMATED GFR IS NOT APPLICABLE FOR DIALYSIS PATIENTS. HEPATIC FUNCTION [id number] 20:36:00* Test Item Value Reference Range Interpretation Comments TOTAL PROTEIN (BEAKER) (test code = 770) 8.6 gm/dL 6.0-8.3 H ALBUMIN (BEAKER) (test code = 1145) 3.0 g/dL 3.5-5.0 L BILIRUBIN TOTAL (BEAKER) (test code = 377) 0.3 mg/dL 0.2-1.2 BILIRUBIN DIRECT (BEAKER) (test code = 706) 0.2 mg/dL 0.1-0.5 ALKALINE PHOSPHATASE (BEAKER) (test code = 346) 105 U/L 40-150 AST (SGOT) (BEAKER) (test code = 353) 18 U/L 5-34 ALT (SGPT) (BEAKER) (test code = 347) 20 U/L 6-55 [id number] 20:28:00* Test Item Value Reference Range Interpretation Comments PARTIAL THROMBOPLASTIN TIME (BEAKER) (test code = 760) 43.3 seconds 22.5-36.0 H 6 hours after starting heparin infusion and as indicated per sliding scale PROTHROMBIN [id number] 20:27:00* Test Item Value Reference Range Interpretation Comments PROTIME (BEAKER) (test code = 759) 15.4 seconds 11.9-14.2 H INR (BEAKER) (test code = 370) 1.3 <=5.9 Effective 11/18/2018: PT Reference Range ChangeNew: 11.9-14.2 Previous: 11.7-14. 7RECOMMENDED COUMADIN/WARFARIN INR THERAPY RANGESSTANDARD DOSE: 2.0-3.0 Include s: PROPHYLAXIS for venous thrombosis, systemic embolization; TREATMENT for venou s thrombosis and/or pulmonary embolus.HIGH RISK: Target INR is 2.5-3.5 for patie nts wiht mechanical heart valves.6 hours after starting heparin infusion and as indicated per sliding scaleCB (HEMOGRAM ONLY)2019-03-19 20:20:00* Test Item Value Reference Range Interpretation Comments WHITE BLOOD CELL COUNT (BEAKER) (test code = 775) 11.5 K/ L 3.5- 10.5 H RED BLOOD CELL COUNT (BEAKER) (test code = 761) 3.52 M/ L 4.63-6 .08 L HEMOGLOBIN (BEAKER) (test code = 410) 8.7 GM/DL 13.7-17.5 L HEMATOCRIT (BEAKER) (test code = 411) 30.1 % 40.1-51.0 L MEAN CORPUSCULAR VOLUME (BEAKER) (test code = 753) 85.5 fL 79. 0-92.2 MEAN CORPUSCULAR HEMOGLOBIN (BEAKER) (test code = 751) 24.7 pg 25.7-32.2 L MEAN CORPUSCULAR HEMOGLOBIN CONC (BEAKER) (test code = 752) 28.9 GM/DL 32.3-36.5 L RED CELL DISTRIBUTION WIDTH (BEAKER) (test code = 412) 17.3 % 11.6-14.4 H PLATELET COUNT (BEAKER) (test code = 756) 450 K/CU MM 150-450 MEAN PLATELET VOLUME (BEAKER) (test code = 754) 9.3 fL 9.4-12 .4 L NUCLEATED RED BLOOD CELLS (BEAKER) (test code = 413) 0 /100 WBC 0 -0 BODY FLUID CULTURE + GRAM [id number] 11:52:00* Test Item Value Reference Range Interpretation Comments CULTURE (BEAKER) (test code = 1095) A 4+ Staphylococcus aureus GRAM STAIN RESULT (BEAKER) (test code = 1123) 4+ WBCs GRAM STAIN RESULT (BEAKER) (test code = 02666) 4+ gram positive cocci in clusters POCT-GLUCOSE [id number] 12:41:00* Test Item Value Reference Range Interpretation Comments POC-GLUCOSE METER (BEAKER) (test code = 1538) 286 mg/dL 70-110 H TESTED AT [facility] [address] [facility] [address] POCT-GLUCOSE [id number] 09:06:00* Test Item Value Reference Range Interpretation Comments POC-GLUCOSE METER (BEAKER) (test code = 1538) 129 mg/dL 70-110 H TESTED AT [facility] [address] [facility] [address] CBC (HEMOGRAM ONLY)2019-02-27 06:39:00* Test Item Value Reference Range Interpretation Comments WHITE BLOOD CELL COUNT (BEAKER) (test code = 775) 7.9 K/ L 3.5- 10.5 RED BLOOD CELL COUNT (BEAKER) (test code = 761) 3.66 M/ L 4.63-6 .08 L HEMOGLOBIN (BEAKER) (test code = 410) 9.7 GM/DL 13.7-17.5 L HEMATOCRIT (BEAKER) (test code = 411) 32.0 % 40.1-51.0 L MEAN CORPUSCULAR VOLUME (BEAKER) (test code = 753) 87.4 fL 79. 0-92.2 MEAN CORPUSCULAR HEMOGLOBIN (BEAKER) (test code = 751) 26.5 pg 25.7-32.2 MEAN CORPUSCULAR HEMOGLOBIN CONC (BEAKER) (test code = 752) 30.3 GM/DL 32.3-36.5 L RED CELL DISTRIBUTION WIDTH (BEAKER) (test code = 412) 16.3 % 11.6-14.4 H PLATELET COUNT (BEAKER) (test code = 756) 411 K/CU MM 150-450 MEAN PLATELET VOLUME (BEAKER) (test code = 754) 10.1 fL 9.4-12 .4 NUCLEATED RED BLOOD CELLS (BEAKER) (test code = 413) 0 /100 WBC 0 -0 BASIC METABOLIC [id number] 06:25:00* Test Item Value Reference Range Interpretation Comments SODIUM (BEAKER) (test code = 381) 137 meq/L 136-145 POTASSIUM (BEAKER) (test code = 379) 3.9 meq/L 3.5-5.1 Specimen slightly hemolyzed CHLORIDE (BEAKER) (test code = 382) 103 meq/L 98-107 CO2 (BEAKER) (test code = 355) 21 meq/L 22-29 L BLOOD UREA NITROGEN (BEAKER) (test code = 354) 12 mg/dL 7-21 CREATININE (BEAKER) (test code = 358) 0.78 mg/dL 0.57-1.25 Specimen slightly hemolyzed GLUCOSE RANDOM (BEAKER) (test code = 652) 125 mg/dL 70-105 H CALCIUM (BEAKER) (test code = 697) 9.0 mg/dL 8.4-10.2 EGFR (BEAKER) (test code = 1092) 99 mL/min/1.73 sq m ESTIMATED GFR IS NOT ACCURATE CREATININE CLEARANCE IN PREDICTING GLOMERULAR FILTRATION RATE. ESTIMATED GFR IS NOT APPLICABLE FOR DIALYSIS PATIENTS. POCT-GLUCOSE [id number] 21:20:00* Test Item Value Reference Range Interpretation Comments POC-GLUCOSE METER (BEAKER) (test code = 1538) 134 mg/dL 70-110 H TESTED AT [facility] [address] [facility] [address] BODY FLUID CELL COUNT WITH [id number] 18:42:00* Test Item Value Reference Range Interpretation Comments APPEARANCE FLUID (BEAKER) (test code = 510) Purulent Clear A COLOR FLUID (BEAKER) (test code = 511) Brown Colorless, Stra w A STILES RBC FLUID (BEAKER) (test code = 513) 903894 /cu mm <=1 H ADJUSTED WBC FLUID (BEAKER) (test code = 1691) 996527 /cu mm <=5 H LINING CELLS (BEAKER) (test code = 1590) 0 /cu mm <=1 NEUTROPHILS FLUID (BEAKER) (test code = 1656) 97 % LYMPHS FLUID (BEAKER) (test code = 488) 2 % MONO/MACROPHAGE FLUID (BEAKER) (test code = 489) 1 % EOSINOPHILS FLUID (BEAKER) (test code = 491) 0 % BASO FLUID (BEAKER) (test code = 492) 0 % CONTAINER BODY FLUID (BEAKER) (test code = 3703) EDTA Tube Intracellular cocci present. Degenerated white cells present.CT, DRAINAGE, [id number] 18:06:00Drainage of right iliopsoas abcessFINAL REPORT CT-guided drainage of right iliopsoas abscess. CLINICAL HISTORY: Drainage of right iliopsoas abcess. COMPARISON STUDY: CT scan dated February 26, 2019. Informed consent was obtained from the patient and the risks of the procedure were explained including bleeding, infection, damage to lung, bowel, blood vessels, nerves and other adjacent structures. This exam was performed according to our department dose optimization program which includes automated exposure control, adjustment of the mA and/or kV according to the patient's size and/or use of iterative reconstruction technique. Sedation: 1% Xylocaine was utilized as local analgesia. A total of 2.5 mg of Versed and 150 mcg of fentanyl were administered using the moderate sedation protocol under the supervision of the physician and nurse. Moderate sedation time: 40 minutes. TECHNIQUE: Using sterile technique, CT fluoroscopic guidance and initially a 20-gauge introducer needle, the tip was inserted into the deep situated 5.0 x 2.7 cm right iliopsoas collection. A 0.035 [place] wire was inserted. However, an attempt to dilate a tract to the deep situated collection with a six and 7 [place] wire was un successful as the dilators could not penetrate the thickened muscle and the wire coiled. Therefore, using the trocar technique a 7 [place] pigtail catheter was i nserted. Approximately 20 cc of pus was aspirated. The sample was submitted to t lab for analysis. COMPLICATIONS: None. ESTIMATED BLOOD LOSS: Minimal. Patient Disposition: The patient was in the same state post procedure as preprocedure. IMPRESSION: Successful CT-guided pigtail catheter into a right iliopsoas absces s. Signed: Vinnie Best MDReport Verified Date/Time: 02/26/2019 18:06:55 Silvia augustin Location: [facility] C013Y CT Body Reading Room -GLUCOSE [id number] 17:34:00* Test Item Value Reference Range Interpretation Comments POC-GLUCOSE METER (BEAKER) (test code = 1538) 113 mg/dL 70-110 H TESTED AT [address] [address] BASIC METABOLIC [id number] 05:40:00* Test Item Value Reference Range Interpretation Comments SODIUM (BEAKER) (test code = 381) 135 meq/L 136-145 L POTASSIUM (BEAKER) (test code = 379) 3.7 meq/L 3.5-5.1 CHLORIDE (BEAKER) (test code = 382) 100 meq/L 98-107 CO2 (BEAKER) (test code = 355) 25 meq/L 22-29 BLOOD UREA NITROGEN (BEAKER) (test code = 354) 15 mg/dL 7-21 CREATININE (BEAKER) (test code = 358) 0.90 mg/dL 0.57-1.25 GLUCOSE RANDOM (BEAKER) (test code = 652) 138 mg/dL 70-105 H CALCIUM (BEAKER) (test code = 697) 9.6 mg/dL 8.4-10.2 EGFR (BEAKER) (test code = 1092) 84 mL/min/1.73 sq m ESTIMATED GFR IS NOT ACCURATE CREATININE CLEARANCE IN PREDICTING GLOMERULAR FILTRATION RATE. ESTIMATED GFR IS NOT APPLICABLE FOR DIALYSIS PATIENTS. CBC W/PLT COUNT & AUTO [id number] 04:41:00* Test Item Value Reference Range Interpretation Comments WHITE BLOOD CELL COUNT (BEAKER) (test code = 775) 8.9 K/ L 3.5- 10.5 RED BLOOD CELL COUNT (BEAKER) (test code = 761) 4.15 M/ L 4.63-6 .08 L HEMOGLOBIN (BEAKER) (test code = 410) 10.6 GM/DL 13.7-17.5 L HEMATOCRIT (BEAKER) (test code = 411) 36.0 % 40.1-51.0 L MEAN CORPUSCULAR VOLUME (BEAKER) (test code = 753) 86.7 fL 79. 0-92.2 MEAN CORPUSCULAR HEMOGLOBIN (BEAKER) (test code = 751) 25.5 pg 25.7-32.2 L MEAN CORPUSCULAR HEMOGLOBIN CONC (BEAKER) (test code = 752) 29.4 GM/DL 32.3-36.5 L RED CELL DISTRIBUTION WIDTH (BEAKER) (test code = 412) 16.3 % 11.6-14.4 H PLATELET COUNT (BEAKER) (test code = 756) 467 K/CU MM 150-450 H MEAN PLATELET VOLUME (BEAKER) (test code = 754) 9.8 fL 9.4-12 .4 NUCLEATED RED BLOOD CELLS (BEAKER) (test code = 413) 0 /100 WBC 0 -0 NEUTROPHILS RELATIVE PERCENT (BEAKER) (test code = 429) 75 % LYMPHOCYTES RELATIVE PERCENT (BEAKER) (test code = 430) 13 % MONOCYTES RELATIVE PERCENT (BEAKER) (test code = 431) 9 % EOSINOPHILS RELATIVE PERCENT (BEAKER) (test code = 432) 2 % BASOPHILS RELATIVE PERCENT (BEAKER) (test code = 437) 0 % NEUTROPHILS ABSOLUTE COUNT (BEAKER) (test code = 670) 6.62 K/ L 1.78-5.38 H LYMPHOCYTES ABSOLUTE COUNT (BEAKER) (test code = 414) 1.13 K/ L 1.32-3.57 L MONOCYTES ABSOLUTE COUNT (BEAKER) (test code = 415) 0.84 K/ L 0. 30-0.82 H EOSINOPHILS ABSOLUTE COUNT (BEAKER) (test code = 416) 0.19 K/ L 0.04-0.54 BASOPHILS ABSOLUTE COUNT (BEAKER) (test code = 417) 0.03 K/ L 0. 01-0.08 IMMATURE GRANULOCYTES-RELATIVE PERCENT (BEAKER) (test code = 2801) 1 % 0-1 CT, PELVIS, W [id number] 01:11:00Reason for exam:->LEG SWELLINGWhat is the patient's sedation requirement?->No SedationFINAL REPORT EXAM: CT pelvis with contrast CLINICAL HISTORY: Leg swelling and edema; suspected proximal vein compromise. TECHNIQUE: CT pelvis was performed with intravenous contrast administration. This exam was performed according to our departmental dose optimization program which includes automated exposure control, adjustment of the mA and/or kV according to patient's size and/or use of iterative reconstructive technique. COMPARISON: None FINDINGS: IMAGED URETERS: Mild right hydroureter. URINARY BLADDER: Mild diffuse mural thickening, asymmetric to the right and posterior douglass may be due to underdistention, cystitis, malignancy.REPRODUCTIVE ORGANS: Absent prostate gland and seminal vesicles. IMAGED BOWEL/MESENTERY: Colonic diverticulosis without acute diverti culitis. No bowel obstruction or abnormal wall thickening. Normal appendix.IMAGE D PERITONEUM/RETROPERITONEUM: Thickening of the right iliopsoas muscle with an i ll-defined 5 x 2.7 x 4.2 cm fluid collection suspicious for an abscess. Mild dif fuse fatty stranding in the pelvis. Trace free fluid in the pelvis. VESSELS: The study is not optimized for evaluation of the venous structures. There is medial displacement and possibly compression of the right external iliac and internal iliac veins by the right iliopsoas collection. There are atherosclerotic calcifi cations of the aorta and branches. LYMPH NODES: No pelvic lymphadenopathy.SOFT T ISSUES: Small fat-containing bilateral inguinal hernias.BONES: Lower lumbar face t arthropathy. IMPRESSION: Thickening of the right iliopsoas muscle with an ill- defined 5 x 2.7 x 4.2 cm fluid collection suspicious for an abscess. The study is not optimized for evaluation of the venous structures. There is medial displa cement and possibly compression of the right external iliac and internal iliac v eins by the right iliopsoas collection. Mild diffuse mural thickening of the ur inary bladder, asymmetric to the right and posterior douglass may be due to underdi stention, cystitis, malignancy or prior radiation. Mild right hydroureter. Urolo gic correlation and follow-up is recommended. A follow-up CT urogram may be perf ormed as clinically warranted. Signed: [facility]y Vick [facility] Verified Date/Time : 02/26/2019 01:11:11 C METABOLIC [id number] 23:15:00* Test Item Value Reference Range Interpretation Comments SODIUM (BEAKER) (test code = 381) 134 meq/L 136-145 L POTASSIUM (BEAKER) (test code = 379) 4.1 meq/L 3.5-5.1 CHLORIDE (BEAKER) (test code = 382) 101 meq/L 98-107 CO2 (BEAKER) (test code = 355) 24 meq/L 22-29 BLOOD UREA NITROGEN (BEAKER) (test code = 354) 18 mg/dL 7-21 CREATININE (BEAKER) (test code = 358) 0.89 mg/dL 0.57-1.25 GLUCOSE RANDOM (BEAKER) (test code = 652) 120 mg/dL 70-105 H CALCIUM (BEAKER) (test code = 697) 9.3 mg/dL 8.4-10.2 EGFR (BEAKER) (test code = 1092) INSUFFICIENT CLINICAL DATA TO CALCULATE ESTIMATED GFR. B-TYPE NATRIURETIC FACTOR (BNP)2019-02-25 23:09:00* Test Item Value Reference Range Interpretation Comments B-TYPE NATRIURETIC PEPTIDE (BEAKER) (test code = 700) 97 pg/mL 0-100 [id number] 23:04:00* Test Item Value Reference Range Interpretation Comments PHOSPHORUS (BEAKER) (test code = 604) 3.9 mg/dL 2.3-4.7 [id number] 23:04:00* Test Item Value Reference Range Interpretation Comments MAGNESIUM (BEAKER) (test code = 627) 1.8 mg/dL 1.6-2.6 HEPATIC FUNCTION [id number] 23:04:00* Test Item Value Reference Range Interpretation Comments TOTAL PROTEIN (BEAKER) (test code = 770) 8.0 gm/dL 6.0-8.3 ALBUMIN (BEAKER) (test code = 1145) 3.1 g/dL 3.5-5.0 L BILIRUBIN TOTAL (BEAKER) (test code = 377) 0.3 mg/dL 0.2-1.2 BILIRUBIN DIRECT (BEAKER) (test code = 706) 0.2 mg/dL 0.1-0.5 ALKALINE PHOSPHATASE (BEAKER) (test code = 346) 90 U/L 40-150 AST (SGOT) (BEAKER) (test code = 353) 23 U/L 5-34 ALT (SGPT) (BEAKER) (test code = 347) 24 U/L 6-55 PT/[id number] 23:03:00* Test Item Value Reference Range Interpretation Comments PROTIME (BEAKER) (test code = 759) 14.2 seconds 11.9-14.2 INR (BEAKER) (test code = 370) 1.2 <=5.9 PARTIAL THROMBOPLASTIN TIME (BEAKER) (test code = 760) 33.0 seconds 22.5-36.0 Effective 11/18/2018: PT Reference Range ChangeNew: 11.9-14.2 Previous: 11.7-14. 7RECOMMENDED COUMADIN/WARFARIN INR THERAPY RANGESSTANDARD DOSE: 2.0-3.0 Include s: PROPHYLAXIS for venous thrombosis, systemic embolization; TREATMENT for venou s thrombosis and/or pulmonary embolus.HIGH RISK: Target INR is 2.5-3.5 for patie nts wiht mechanical heart valves.CBC W/PLT COUNT & AUTO [id number] 22:44:00* Test Item Value Reference Range Interpretation Comments WHITE BLOOD CELL COUNT (BEAKER) (test code = 775) 9.1 K/ L 3.5- 10.5 RED BLOOD CELL COUNT (BEAKER) (test code = 761) 3.45 M/ L 4.63-6 .08 L HEMOGLOBIN (BEAKER) (test code = 410) 9.1 GM/DL 13.7-17.5 L HEMATOCRIT (BEAKER) (test code = 411) 29.7 % 40.1-51.0 L MEAN CORPUSCULAR VOLUME (BEAKER) (test code = 753) 86.1 fL 79. 0-92.2 MEAN CORPUSCULAR HEMOGLOBIN (BEAKER) (test code = 751) 26.4 pg 25.7-32.2 MEAN CORPUSCULAR HEMOGLOBIN CONC (BEAKER) (test code = 752) 30.6 GM/DL 32.3-36.5 L RED CELL DISTRIBUTION WIDTH (BEAKER) (test code = 412) 16.2 % 11.6-14.4 H PLATELET COUNT (BEAKER) (test code = 756) 393 K/CU MM 150-450 MEAN PLATELET VOLUME (BEAKER) (test code = 754) 9.2 fL 9.4-12 .4 L NUCLEATED RED BLOOD CELLS (BEAKER) (test code = 413) 0 /100 WBC 0 -0 NEUTROPHILS RELATIVE PERCENT (BEAKER) (test code = 429) 75 % LYMPHOCYTES RELATIVE PERCENT (BEAKER) (test code = 430) 12 % MONOCYTES RELATIVE PERCENT (BEAKER) (test code = 431) 10 % EOSINOPHILS RELATIVE PERCENT (BEAKER) (test code = 432) 2 % BASOPHILS RELATIVE PERCENT (BEAKER) (test code = 437) 0 % NEUTROPHILS ABSOLUTE COUNT (BEAKER) (test code = 670) 6.82 K/ L 1.78-5.38 H LYMPHOCYTES ABSOLUTE COUNT (BEAKER) (test code = 414) 1.10 K/ L 1.32-3.57 L MONOCYTES ABSOLUTE COUNT (BEAKER) (test code = 415) 0.90 K/ L 0. 30-0.82 H EOSINOPHILS ABSOLUTE COUNT (BEAKER) (test code = 416) 0.16 K/ L 0.04-0.54 BASOPHILS ABSOLUTE COUNT (BEAKER) (test code = 417) 0.02 K/ L 0. 01-0.08 IMMATURE GRANULOCYTES-RELATIVE PERCENT (BEAKER) (test code = 2801) 1 % 0-1 RETROGRADE [id number] 08:57:00 [place] [address] Patient Name: MONIK MORENO MR #: [id number] : 1950 Age/Sex: 68/M Req #: [id number] [facility] Physician: MAHENDRA LINDSEY MD Ordered by: BENTLEY EDWARDS MD Report #: [id number] Location: [facility] Room/Bed: [facility] Procedure: [id number] DX/R ETROGRADE PYELOGRAM Exam Date: 02/01/19 Exam Time: 1 200 REPORT STATUS: Signed Ret rograde urethrogram and pyelogram. History: Right iliac muscle abscess. Comparison: None available. Discussion: Procedure was performed by uro logy. Contrast was injected in a retrograde fashion into the urethra and bilat eral ureters ureter. Multiple images were obtained. Fluoro time: 0.3 minutes . Dose: 7.4 mGy (KELLEN) There is filling of the urethra without eviden ce of stricture, filling defect, or luminal irregularity. There is filling of bilateral ureters with contrast noted to flow into the bilateral renal collect ing systems without evidence of stricture, filling defect, or luminal irregula rity. IMPRESSION: Normal retrograde urethrogram and pyelogram. Signed by: Pratik Ellis on 02/08/2019 9:09 AM Dictated By: PRATIK ELLIS MD 8 Transcribed By: SHERIF on 02/08/19908 COPY TO: BENTLEY EDWARDS MD URETHROGRAM (RETRO)2019-02-08 08:57:00 [place] [address] Patient Name: MONIK MORENO MR #: [id number] : 1950 Age/Sex: 68/M Req #: [id number] Adm Physician: MAHENDRA LINDSEY MD Ordered by: BENTLEY EDWARDS MD Report #: [id number] Location: [facility] Room/Bed: [facility] Procedure: [id number] DX/U RETHROGRAM (RETRO) Exam Date: 02/01/19 Exam Time: 11 36 REPORT STATUS: Signed Retr ograde urethrogram and pyelogram. History: Right iliac muscle abscess. Comparison: None available. Discussion: Procedure was performed by urol ogdonna. Contrast was injected in a retrograde fashion into the urethra and bilate ral ureters ureter. Multiple images were obtained. Fluoro time: 0.3 minutes. Dose: 7.4 mGy (KELLEN) There is filling of the urethra without evidence of stricture, filling defect, or luminal irregularity. There is filling of b ilateral ureters with contrast noted to flow into the bilateral renal collecti ng systems without evidence of stricture, filling defect, or luminal irregular ity. IMPRESSION: Normal retrograde urethrogram and pyelogram. Signed by: Pratik Ellis on 02/08/2019 9:09 AM Dictated By: PRATIK ELLIS MD 8 Transcribed By: SHERIF on 02/08/19908 COPY TO: BENTLEY EDWARDS MD Bedside Glucose 2019-02-02 11:45:00* Test Item Value Reference Range Interpretation Comments Bedside Glucose (test code = 04854-6) 152 70-120 H Meter ID: [id number] [facility] CenterDifferent[facility] Cells Lsafbjy6540-90-13 08:10:00* Test Item Value Reference Range Interpretation Comments Differential Total Cells Counted (test code = Differkatherine tial Total Cells Counted) 100 [facility] TexasNeutrophils % (Manual)2019-02-01 08:10:00 * Test Item Value Reference Range Interpretation Comments Neutrophils % (Manual) (test code = 47244-3) 82 40-74 H [facility] TexasLymphocytes % (Manual)2019-02-01 08:10:00 * Test Item Value Reference Range Interpretation Comments Lymphocytes % (Manual) (test code = 737-7) 8 19-48 L [facility] TexasMonocytes % (Manual)2019-02-01 08:10:00* Test Item Value Reference Range Interpretation Comments Monocytes % (Manual) (test code = 744-3) 8 3.4-9.0 [facility] TexasEosinophils % (Manual)2019-02-01 08:10:00 * Test Item Value Reference Range Interpretation Comments Eosinophils % (Manual) (test code = 714-6) 2 0-7 [facility] TexasPlatelet Qzxrgjte9153-39-64 08:10:00* Test Item Value Reference Range Interpretation Comments Platelet Estimate (test code = 94788-1) ADEQUATE [facility] TexasPlatelet Morphology Dwbfmwr8140-11-07 08:10:00* Test Item Value Reference Range Interpretation Comments Platelet Morphology Comment (test code = 40155-2) NORMAL [facility] TexasProthrombin Uuax1707-06-97 07:13:00* Test Item Value Reference Range Interpretation Comments Prothrombin Time (test code = 5902-2) 13.8 11.9-14.5 [facility] TexasProthromb Time International Ratio 2019-02-01 07:13:00* Test Item Value Reference Range Interpretation Comments Prothromb Time International Ratio (test code = 6301-6) 1.01 Oral Anticoagulant Therapy INR Values:1. Low Intensity Therapy 1.5 - 2.02 . Moderate Intensity Therapy 2.0 - 3.03. High Intensity Therapy(1) 2.5 - 3. 54. High Intensity Therapy(2) 3.0 - 4.05. Panic Value INR > 5.0 [facility] TexasActivated Partial Thromboplast Time 2019-02-01 07:13:00* Test Item Value Reference Range Interpretation Comments Activated Partial Thromboplast Time (test code = 04894-9) 28.1 23.8-35.5 [facility] TexasWhite Blood Brbis5917-74-78 07:11:00* Test Item Value Reference Range Interpretation Comments White Blood Count (test code = 6690-2) 6.78 4.8-10.8 [facility] TexasRed Blood Rxcwg6948-57-96 07:11:00* Test Item Value Reference Range Interpretation Comments Red Blood Count (test code = 789-8) 3.46 4.3-5.7 L [facility] TexasHemoglobin2019-08-12 07:11:00* Test Item Value Reference Range Interpretation Comments Hemoglobin (test code = 84920-7) 9.2 14.0-18.0 L [facility] TexasHematocrit2019-08-12 07:11:00* Test Item Value Reference Range Interpretation Comments Hematocrit (test code = 4544-3) 29.9 38.2-49.6 L [facility] of TexasMean Corpuscular Gimawm1595-87-51 07:11:00* Test Item Value Reference Range Interpretation Comments Mean Corpuscular Volume (test code = 787-2) 86.4 81-99 [facility] TexasMean Corpuscular Gwyfeximad3061-60-79 07:11:00* Test Item Value Reference Range Interpretation Comments Mean Corpuscular Hemoglobin (test code = 785-6) 26.6 28-32 L [facility] TexasMean Corpuscular Hemoglobin Concent 2019-02-01 07:11:00* Test Item Value Reference Range Interpretation Comments Mean Corpuscular Hemoglobin Concent (test code = 786-4) 30.8 31-35 L [facility] TexasRed Cell Distribution Drqqn9237-71-05 07:11:00* Test Item Value Reference Range Interpretation Comments Red Cell Distribution Width (test code = 96059-5) 15.1 11.7 -14.4 H [facility] TexasPlatelet Eoere4147-39-15 07:11:00* Test Item Value Reference Range Interpretation Comments Platelet Count (test code = 777-3) 353 140-360 [facility] TexasNeutrophils (%) (Auto)2019-02-01 07:11:00 * Test Item Value Reference Range Interpretation Comments Neutrophils (%) (Auto) (test code = 01814-0) 75.4 38.7-80.0 [facility] TexasLymphocytes (%) (Auto)2019-02-01 07:11:00 * Test Item Value Reference Range Interpretation Comments Lymphocytes (%) (Auto) (test code = 736-9) 8.6 18.0-39.1 L [facility] TexasMonocytes (%) (Auto)2019-02-01 07:11:00* Test Item Value Reference Range Interpretation Comments Monocytes (%) (Auto) (test code = 5905-5) 11.1 4.4-11.3 [facility] TexasEosinophils (%) (Auto)2019-02-01 07:11:00 * Test Item Value Reference Range Interpretation Comments Eosinophils (%) (Auto) (test code = 713-8) 4.0 0.0-6.0 [facility] TexasBasophils (%) (Auto)2019-02-01 07:11:00* Test Item Value Reference Range Interpretation Comments Basophils (%) (Auto) (test code = 706-2) 0.3 0.0-1.0 [facility] of TexasIM GRANULOCYTES %2019-02-01 07:11:00* Test Item Value Reference Range Interpretation Comments IM GRANULOCYTES % (test code = IM GRANULOCYTES %) 0.6 0.0- 1.0 [facility] TexasNeutrophils # (Auto)2019-02-01 07:11:00* Test Item Value Reference Range Interpretation Comments Neutrophils # (Auto) (test code = 751-8) 5.1 2.1-6.9 [facility] TexasLymphocytes # (Auto)2019-02-01 07:11:00* Test Item Value Reference Range Interpretation Comments Lymphocytes # (Auto) (test code = 68851-7) 0.6 1.0-3.2 L [facility] TexasMonocytes # (Auto)2019-02-01 07:11:00* Test Item Value Reference Range Interpretation Comments Monocytes # (Auto) (test code = 742-7) 0.8 0.2-0.8 [facility] TexasEosinophils # (Auto)2019-02-01 07:11:00* Test Item Value Reference Range Interpretation Comments Eosinophils # (Auto) (test code = 711-2) 0.3 0.0-0.4 [facility] TexasBasophils # (Auto)2019-02-01 07:11:00* Test Item Value Reference Range Interpretation Comments Basophils # (Auto) (test code = 704-7) 0.0 0.0-0.1 [facility] TexasAbsolute Immature Granulocyte (auto 2019-02-01 07:11:00* Test Item Value Reference Range Interpretation Comments Absolute Immature Granulocyte (auto (michela t code = Absolute Immature Granulocyte (auto) 0.04 0-0.1 [facility] Southodium Zhhch1192-07-89 07:07:00* Test Item Value Reference Range Interpretation Comments Sodium Level (test code = 2951-2) 138 136-145 [facility] TexasPotassium Samgx9816-57-38 07:07:00* Test Item Value Reference Range Interpretation Comments Potassium Level (test code = 2823-3) 3.4 3.5-5.1 L [facility] TexasChloride Mudnz5426-03-01 07:07:00* Test Item Value Reference Range Interpretation Comments Chloride Level (test code = 2075-0) 104 98-107 [facility] TexasCarbon Dioxide Gbrne0587-83-48 07:07:00* Test Item Value Reference Range Interpretation Comments Carbon Dioxide Level (test code = 2028-9) 26 -29 [facility] TexasAnion Bxo7331-28-71 07:07:00* Test Item Value Reference Range Interpretation Comments Anion Gap (test code = 26098-5) 11.4 8-16 [facility] TexasBlood Urea Umjisale8170-04-73 07:07:00* Test Item Value Reference Range Interpretation Comments Blood Urea Nitrogen (test code = 3094-0) 10 7-26 [facility] TexasCreatinine2019-08-12 07:07:00* Test Item Value Reference Range Interpretation Comments Creatinine (test code = 2160-0) 0.73 0.72-1.25 [facility] TexasBUN/Creatinine Mdhem0348-11-56 07:07:00* Test Item Value Reference Range Interpretation Comments BUN/Creatinine Ratio (test code = 3097-3) 14 - [facility] of TexasEstimat Glomerular Filtration Rate 2019-02-01 07:07:00* Test Item Value Reference Range Interpretation Comments Estimat Glomerular Filtration Rate (test code = 343996339) > 60 >60 Ranges were taken from the National Kidney Disease Education Program and the [facility] Kid[facility] Foundation literature.Reference ranges:60 or greater: Wkahns00-99 ( for 3 consecutive months): Chronic kidney disease 15 or less: Kidney failureDell [facility] Center at The University of TexasGlucose Hhsbp1031-19-70 07:07:00* Test Item Value Reference Range Interpretation Comments Glucose Level (test code = RMD5618) 130 74-118 H [facility] TexasCalcium Gjzsk2733-08-26 07:07:00* Test Item Value Reference Range Interpretation Comments Calcium Level (test code = 88699-9) 9.0 8.4-10.2 [facility] TexasMagnesium Cpdhe6378-56-11 07:07:00* Test Item Value Reference Range Interpretation Comments Magnesium Level (test code = 25515-7) 1.6 1.3-2.1 [facility] of TexasTotal Fqdwbfwhy7417-54-75 08:30:00* Test Item Value Reference Range Interpretation Comments Total Bilirubin (test code = 1975-2) 0.2 0.2-1.2 [facility] of TexasAspartate Amino Transf (AST/SGOT) 2019-01-31 08:30:00* Test Item Value Reference Range Interpretation Comments Aspartate Amino Transf (AST/SGOT) (test code = Aspartate Amino Transf (AST/SGOT)) 10 5-34 [facility] TexasAlanine Aminotransferase (ALT/SGPT) 2019-01-31 08:30:00* Test Item Value Reference Range Interpretation Comments Alanine Aminotransferase (ALT/SGPT) (test code = 1742-6) 11 0-55 [facility] TexasTotal Kibwhmx7746-08-98 08:30:00* Test Item Value Reference Range Interpretation Comments Total Protein (test code = 2885-2) 6.6 6.5-8.1 [facility] TexasAlbumin2019-08-11 08:30:00* Test Item Value Reference Range Interpretation Comments Albumin (test code = 1751-7) 2.4 3.5-5.0 L [facility] TexasGlobulin2019-08-11 08:30:00* Test Item Value Reference Range Interpretation Comments Globulin (test code = 12470-5) 4.2 2.3-3.5 H [facility] TexasAlbumin/Globulin Amaxb7075-03-32 08:30:00 * Test Item Value Reference Range Interpretation Comments Albumin/Globulin Ratio (test code = 1759-0) 0.6 0.8-2.0 L [facility] TexasAlkaline Thwannbfwxk4600-08-77 08:30:00* Test Item Value Reference Range Interpretation Comments Alkaline Phosphatase (test code = 6768-6) 61 40-150 [facility] University of TexasCT ABDOMEN/PELVIS [id number] 22:49:00 [place] [address] Patient Name: MONIK MORENO MR #: [id number] : 1950 Age/Sex: 68/M Req #: [id number] Adm Physician: Ordered by: RANDY LANZA MD Report #: [id number] Location: ER Room/Bed: Procedure: [id number] C T/CT ABDOMEN/PELVIS W Exam Date: 01/30/19 Exam Time: 2134 REPORT STATUS: Signed EXAM: CT Abdomen and Pelvis WITH contrast INDICATION: Blood in urine. Painful ur ination. COMPARISON: None. TECHNIQUE: Abdomen and pelvis were scanned utiliz ing a multidetector helical scanner from the lung base to the pubic symphysis after administration of IV contrast. Coronal and sagittal reformations were ob tained. Routine protocol was performed. Scan was performed when during portal venous phase. IV CONTRAST: 100 cc Isovue-300 ORAL CO NTRAST: Water RADIATION DOSE: Total DLP: 712.11 mGy*cm Estimated effective dose: (DLP x 0.015 x size factor) mSv COMP LICATIONS: None FINDINGS: LINES and TUBES: None. LOWER THORAX: 6 mm groundglass nodule in the right middle lobe on image 1 series 2. Bibasilar dependent atelectasis. 8 mm noncalcified subpleural nodule in the lingula on images 6 series 2. Minimal lingular atelectasis on image 6 series 2. HEPA TOBILIARY: No focal hepatic lesions. No biliary ductal dilation. GALL BLADDER: No radio-opaque stones or sludge. No wall thickening. SPLEEN: No splenomegaly. PANCREAS: No focal masses or ductal dilatation. ADREN ALS: No adrenal nodules KIDNEYS/URETERS: Kidneys enhance symmetrically. No hydronephrosis. 3.6 cm cyst in the lower pole of the left kidney associat ed with punctate calcification. No stones. GI TRACT: No abnormal distent ion, wall thickening, or evidence of bowel obstruction. Appendix is norm al. PELVIC ORGANS/BLADDER: There is diffuse asymmetric wall thickening of t he urinary bladder, associated with perivesicular fat stranding, which may ref lect cystitis in the proper clinical setting. LYMPH NODES: No lymphadenop athy. VESSELS: There is mild atherosclerotic disease in the aorta and major arterial branches. PERITONEUM / RETROPERITONEUM: No free air or fluid. BONES: Bilateral small fat-containing inguinal hernias. SOFT TISSUES: T here is a low-attenuation fluid collection within the right iliac is muscle wi th mild surrounding peripheral enhancement measuring 4.9 x 2.8 cm on image 73 series 2 which may represent an abscess. IMPRESSION: 1. Findings consis tent with cystitis in the proper clinical setting. Recommend follow-up after t reatment to document resolution and adnexal the underlying pathology such as n eoplasm. 2. 4.9 cm mildly peripherally enhancing collection within the right iliac is muscle may represent an abscess. Bursal fluid is felt to be less like ly. 3. Minimally complex cyst in the lower pole of the left knee. Signed by: Dr. Re Sauer M.D. on 01/30/2019 11:08 PM Dictated By: TEHO SAUER MD, MD 2 308 Transcribed By: SHERIF on 01/30/19 [id number] COPY TO: RANDY LANZA Urine [id number] 20:17:00* Test Item Value Reference Range Interpretation Comments Urine WBC (test code = 5821-4) 0-5 0-5 [facility] [facility] RBA2219-03-22 20:17:00* Test Item Value Reference Range Interpretation Comments Urine RBC (test code = 19023-9) >50 0-5 [facility] [id number] 20:17:00* Test Item Value Reference Range Interpretation Comments Urine Bacteria (test code = 57511-5) RARE NONE [facility] Epithelial [id number] 20:17:00 * Test Item Value Reference Range Interpretation Comments Urine Epithelial Cells (test code = 99652-4) RARE NONE [facility] [id number] 20:01:00* Test Item Value Reference Range Interpretation Comments Urine Color (test code = 5778-6) YELLOW YELLOW [facility] [id number] 20:01:00* Test Item Value Reference Range Interpretation Comments Urine Clarity (test code = 47272-3) SL CLOUDY CLEAR H [facility] Specific [id number] 20:01:00 * Test Item Value Reference Range Interpretation Comments Urine Specific [place] (test code = 5811-5) 1.020 1.010-1.02 5 [facility] [id number] 20:01:00* Test Item Value Reference Range Interpretation Comments Urine pH (test code = 84146-0) 7 5-7 [facility] Leukocyte [id number] 20:01:00* Test Item Value Reference Range Interpretation Comments Urine Leukocyte Esterase (test code = 93907-6) NEGATIVE NEGATIV E [facility] [id number] 20:01:00* Test Item Value Reference Range Interpretation Comments Urine Nitrite (test code = 40394-9) NEGATIVE NEGATIVE [facility] [id number] 20:01:00* Test Item Value Reference Range Interpretation Comments Urine Protein (test code = 61538-2) 3+ NEGATIVE H [facility] Glucose (UA)2019-01-30 20:01:00* Test Item Value Reference Range Interpretation Comments Urine Glucose (UA) (test code = 14792-0) 3+ NEGATIVE [facility] [id number] 20:01:00* Test Item Value Reference Range Interpretation Comments Urine Ketones (test code = 17656-3) NEGATIVE NEGATIVE [facility] [id number] 20:01:00* Test Item Value Reference Range Interpretation Comments Urine Urobilinogen (test code = 52129-6) 0.2 0.2-1 [facility] [id number] 20:01:00* Test Item Value Reference Range Interpretation Comments Urine Bilirubin (test code = 1977-8) NEGATIVE NEGATIVE [facility] [id number] 20:01:00* Test Item Value Reference Range Interpretation Comments Urine Blood (test code = 65694-5) 3+ NEGATIVE [facility] WHOLE [id number] 14:41:14CLINICAL INDICATION: dx: c61, r/o mets, prostate ca, asymptomaticMODALITY: Live[employer] dual head gamma cameraTECHNIQUE: 25 mCi Tc [...]
--- OUTSIDE RECORDS SUMMARY | 2020-05-02 00:18 | XMS REPORT | Clinical Summary ---
Author Author DEEJAY EveryRackB[facility] HospitalClicknationTall[facility]as[facility] Address Unknown Phone Unavailable Care Team Providers Care New Accounts Clerk Name Role Phone PCP Unavailable Allergies No Known Allergies Medications End Date Status Medication Sig Dispensed Refills Start Date Active amLODIPine (NORVASC) 10 Take 10 mg by 0 MG tablet mouth daily. Active lansoprazole (PREVACID) Take 30 mg by 0 30 MG capsule mouth daily. Active metFORMIN (GLUCOPHAGE) Take 1,000 mg 0 1000 MG tablet by mouth 2 (two) times daily with breakfast and dinner. Active carvedilol (COREG) 12.5 Take 12.5 mg 0 MG tablet by mouth 2 (two) times daily with breakfast and dinner. Active empagliflozin (JARDIANCE) Take 25 mg by 0 25 mg tablet mouth daily. Active glimepiride (AMARYL) 2 MG Take 2 mg by 0 tablet mouth 2 (two) times daily with breakfast and lunch. Active SITagliptin (JANUVIA) 100 Take 100 mg 0 MG tablet by mouth daily. Active atorvastatin (LIPITOR) 10 Take 10 mg by 0 MG tablet mouth nightly. Active lisinopril Take 40 mg by 0 (PRINIVIL,ZESTRIL) 40 MG mouth daily. tablet Active aspirin 81 MG EC tablet Take 81 mg by 0 mouth daily. 02/27/2020 gabapentin (NEURONTIN) Take 1 90 capsule 0 300 MG capsule capsule (300 9 mg total) by mouth 3 (three) times daily. 02/27/2020 oxybutynin (DITROPAN) 5 Take 1 tablet 90 tablet 0 MG tablet (5 mg total) 9 by mouth 3 (three) times daily. 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 Never 02/25/2019 How many drinks containing alcohol do you have on No t asked a typical day when you are drinking? How often do you have six or more drinks on one Not asked occasion? Sex Assigned at Date Recorded Not on file Last Filed Vital Signs Not on file Plan of Treatment Health Maintenance Due Date Last Done Comments DIABETIC EYE EXAM 1961 DIABETIC FOOT EXAM 1960 URINE MICROALBUMIN 1960 MEDICARE ANNUAL WELLNESS 02/27/2017 (YEAR 2 or FIRST YEAR if no IPPE) HEMOGLOBIN A1C 02/26/2019 INFLUENZA VACCINE (#1) 2020 04/01/2018, 03/05/2016, 03/22/2014, Additional history exists COLON CANCER SCREENING 06/12/2028 06/12/2018 COLONOSCOPY PNEUMOCOCCAL 65+ YRS Completed 04/22/2018, 09/11/2015, 03/05/2010 Results Not on fileafter 05/02/2019 Insurance Type Payer Benefit Subscriber ID Effective Phone Address Plan / Dates Group [facility] [place] [id number] 2016-P MEDICARE resent [id number] Advance Directives For more information, please contact: [phone] Date Inactivated Comments Code Status Date Activated 03/25/2019 6:58 PM Full Code 03/19/2019 7:16 PM This code status was determined by: Patient 02/27/2019 6:04 PM Full Code 02/26/2019 2:02 AM This code status was determined by: Patient
[2020-05-02] MEDS ORDERED: SODIUM CHLORIDE 0.9% 50ML 50 ML ONE (00:25)
[2020-05-02] MEDS ORDERED: IOPAMIDOL 370 MG/ML 200 ML INFUS..BTL INJ ONE (00:25)
[2020-05-02] MEDS ORDERED: SODIUM CHLORIDE 0.9% 1000ML 1,000 ML ONE (00:26)
[2020-05-02] MEDS ORDERED: SODIUM CHLORIDE 0.9% 1000ML 1,000 ML IV ONE (00:30)
--- NOTE | 2020-05-02 00:39 | Emergency Department Note ---
History of Present Illnes History of Present Illness Chief Complaint: Abdominal Complaints History of Present Illness This is a 69 year old male male complaining of pain to suprapubic region that radiates to l abdomen and l flank x 4 days. pt also reports burning c urination. denies n/v/d. Historian: Patient Arrival Mode: Car Onset (how long ago): day(s) (4) Location: LEFT ABD Quality: PAIN Radiation: Reports non-radiation Severity: moderate Onset quality: gradual Duration (how long): day(s) (4) Timing of current episode: constant Progression: worsening Chronicity: new Context: Denies recent illness, Denies recent surgery Relieving factors: none Exacerbating factors: none Associated symptoms: Reports other (PAIN WITH URINATION) Treatments prior to arrival: none Past Medical/Family History Physician Review I have reviewed the patient's past medical and family history. Any updates have been documented here. Past Medical History Recent Fever: No Clinical Suspicion of Infectio: No New/Unexplained Change in Ment: No Past Medical History: Hypertension, Diabetes, UTI's, GERD, Hyperlipedemia Other Medical History: BPH PROSTATE CA Other Surgery: PROSTECTOMY Social History Smoking Cessation: Never Smoker Counseling Performed: No Alcohol Use: None Any Illegal Drug Use: No Physically hurt or threatened: No Family History Family history of heart diseas: No Other Last Tetanus: UTD Any Pre-Existing Lines (PICC,: No Review of Systems Review of Systems Constitutional: Reports no symptoms EENTM: Reports no symptoms Cardiovascular: Reports no symptoms Respiratory: Reports no symptoms Gastrointestinal: Reports as per HPI Genitourinary: Reports no symptoms Musculoskeletal: Reports no symptoms Integumentary: Reports no symptoms Neurological: Reports no symptoms Psychological: Reports no symptoms Endocrine: Reports no symptoms Hematological/Lymphatic: Reports no symptoms Physical Exam Related Data Allergies: Coded Allergies: No Known Allergies (Unverified , 04/24/19) Triage Vital Signs Vital Signs Date Time Temp Pulse Resp B/P (MAP) Pulse Ox O2 Delivery O2 Flow Rate FiO2 05/01/20 22:54 97.8 83 17 115/79 98 Room Air Vital signs reviewed: Yes Physical Exam CONSTITUTIONAL Constitutional: Present well-developed, Present well-nourished; Absent distressed HENT HENT: Present normocephalic, Present atraumatic, Present oropharynx clear/moist, Present nose normal HENT L/R: Present left ext ear normal, Present right ext ear normal EYES Eyes: Reports PERRL, Reports conjunctivae normal NECK Neck: Present ROM normal PULMONARY Pulmonary: Present effort normal, Present breath sounds normal CARDIOVASCULAR Cardiovascular: Present regular rhythm, Present heart sounds normal, Present capillary refill normal, Present normal rate GASTROINTESTINAL Abdominal: Present soft, Present bowel sounds normal, Present tender (EPIGASTRIC, AND ENTIRE LEFT ABD, ), Present left CVA tenderness (MILD) GENITOURINARY Genitourinary: Present exam deferred SKIN Skin: Present warm, Present dry MUSCULOSKELETAL Musculoskeletal: Present ROM normal NEUROLOGICAL Neurological: Present alert, Present oriented x 3, Present no gross motor or sensory deficits PSYCHOLOGICAL Psychological: Present mood/affect normal, Present judgement normal Results Laboratory Result Diagram: 05/01/20224105/01/202241 Laboratory Laboratory Tests Test 05/01/20 22:42 White Blood Count 6.96 x10e3/uL (4.8-10.8) Red Blood Count 5.22 x10e6/uL (4.3-5.7) Hemoglobin 14.7 g/dL (14.0-18.0) Hematocrit 45.4 % (38.2-49.6) Mean Corpuscular Volume 87.0 fL (81-99) Mean Corpuscular Hemoglobin 28.2 pg (28-32) Mean Corpuscular Hemoglobin Concent 32.4 g/dL (31-35) Red Cell Distribution Width 15.4 % (11.7-14.4) Platelet Count 253 x10e3/uL (140-360) Neutrophils (%) (Auto) 72.8 % (38.7-80.0) Lymphocytes (%) (Auto) 11.9 % (18.0-39.1) Monocytes (%) (Auto) 8.0 % (4.4-11.3) Eosinophils (%) (Auto) 6.3 % (0.0-6.0) Basophils (%) (Auto) 0.1 % (0.0-1.0) Neutrophils # (Auto) 5.1 (2.1-6.9) Lymphocytes # (Auto) 0.8 (1.0-3.2) Monocytes # (Auto) 0.6 (0.2-0.8) Eosinophils # (Auto) 0.4 (0.0-0.4) Basophils # (Auto) 0.0 (0.0-0.1) Absolute Immature Granulocyte (auto 0.06 x10e3/uL (0-0.1) Urine Color Yellow (YELLOW) Urine Clarity Clear (CLEAR) Urine pH 5 (5 - 7) Urine Specific [place] >=1.030 (1.010-1.025) Urine Protein >=300 (NEGATIVE) Urine Glucose (UA) Negative (NEGATIVE) Urine Ketones Negative (NEGATIVE) Urine Blood Negative (NEGATIVE) Urine Nitrite Negative (NEGATIVE) Urine Bilirubin Negative (NEGATIVE) Urine Urobilinogen 0.2 mg/dL (0.2 - 1) Urine Leukocyte Esterase Negative (NEGATIVE) Urine RBC 0-5 /HPF (0-5) Urine WBC 0-5 /HPF (0-5) Urine Epithelial Cells Few /LPF (NONE) Urine Amorphous Sediment Few (FEW) Urine Bacteria Few /HPF (NONE) Sodium Level 137 mmol/L (136-145) Potassium Level 3.7 mmol/L (3.5-5.1) Chloride Level 96 mmol/L (98-107) Carbon Dioxide Level 28 mmol/L (22-29) Anion Gap 16.7 mmol/L (8-16) Blood Urea Nitrogen 40 mg/dL (7-26) Creatinine 1.31 mg/dL (0.72-1.25) Estimat Glomerular Filtration Rate 54 ML/MIN (60-) BUN/Creatinine Ratio 31 (6-25) Glucose Level 194 mg/dL (74-118) Calcium Level 9.1 mg/dL (8.4-10.2) Total Bilirubin 0.4 mg/dL (0.2-1.2) Aspartate Amino Transf (AST/SGOT) 16 IU/L (5-34) Alanine Aminotransferase (ALT/SGPT) 22 IU/L (0-55) Alkaline Phosphatase 59 IU/L (40-150) Total Protein 7.1 g/dL (6.5-8.1) Albumin 3.8 g/dL (3.5-5.0) Globulin 3.3 g/dL (2.3-3.5) Albumin/Globulin Ratio 1.2 (0.8-2.0) Amylase Level 127 U/L (25-125) Lipase 121 U/L (8-78) Lab results reviewed: Yes Imaging Imaging results reviewed: Yes Impressions Procedure: [id number] US/US GALLBLADDER Exam Date: 05/02/20 Exam Time: 0234 REPORT STATUS: Signed EXAM: Right Upper Quadrant Ultrasound INDICATION: ^UPPER ABD PAIN WITH PANCREATITIS ^[id number] ^0234 ^Y COMPARISON: Abdominal CT 05/01/2020. TECHNIQUE: Transverse and longitudinal images of the right upper abdomen were obtained. FINDINGS: Liver: Size: 19 cm in the right midclavicular line, enlarged Appearance: Increased and heterogeneous echogenicity, smooth contour Mass: No focal masses Gallbladder: Stones/Sludge: Small gallstones Wall: 0.27 cm Appearance: No pericholecystic fluid or hydrops. Sonographic Aponte's Sign: Negative Bile Ducts: Intrahepatic Ducts: No dilatation Extrahepatic Ducts: Common bile duct measures ... cm, no dilatation Pancreas: Not well seen. Right Kidney: Size: 10.8 cm Echogenicity: Normal Parenchymal thickness: Normal Collecting system: No hydronephrosis Stones: None Cyst/Mass: None Vessels: Aorta: Visualized portions are normal Inferior Vena Cava: Visualized portions are normal Main portal vein: Normal size and flow direction. Free Fluid: No ascites or pleural effusion IMPRESSION: Hepatomegaly with hepatic steatosis. Cholelithiasis without evidence of acute cholecystitis. Signed by: Monty Garcia DO on 05/02/2020 3:46 AM Dictated By: MONTY GARCIA DO 5 Transcribed By: SHERIF on 05/02/20345 COPY TO: GONZALEZ MONTES DE OCA MD~ Procedure: [id number] CT/CT ABDOMEN/PELVIS W Exam Date: 05/01/20 Exam Time: 235 REPORT STATUS: Signed EXAM: CT Abdomen and Pelvis WITH contrast INDICATION: ^left abd pain ^[id number] ^2350 ^Y COMPARISON: Abdominal CT 01/30/2019. TECHNIQUE: Abdomen and pelvis were scanned utilizing a multidetector helical scanner from the lung base to the pubic symphysis after administration of IV contrast. Coronal and sagittal reformations were obtained. Routine protocol was performed. Scan was performed when during portal venous phase. IV CONTRAST: 100 mL of Isovue 370 ORAL CONTRAST: None COMPLICATIONS: None RADIATION DOSE: Total DLP: 748 mGy*cm Estimated effective dose: (DLP x 0.015 x size factor) mSv CTDIvol has been reviewed. It is below the limits set by the Radiation Protocol Committee (RPC). Dose modulation, iterative reconstruction, and/or weight based adjustment of the mA/kV was utilized to reduce the radiation dose to as low as reasonably achievable. FINDINGS: LINES and TUBES: None. LOWER THORAX: Nonsuspicious nodules in the lower lobes are less than 5 mm, likely benign. No follow-up required. Aortic valve calcifications. Left coronary calcifications. HEPATOBILIARY: No focal hepatic lesions. No biliary ductal dilation. GALLBLADDER: No radio-opaque stones or sludge. No wall thickening. SPLEEN: No splenomegaly. Thin linear calcification along the posterior superior lateral aspect of the spleen, suspect from prior trauma or inflammation. PANCREAS: No focal masses or ductal dilatation. ADRENALS: No adrenal nodules KIDNEYS/URETERS: Kidneys enhance symmetrically. No hydronephrosis. Simple cysts in both kidneys, including a 2.5 cm cyst in the left renal inferior pole. No solid mass lesions. No stones. GI TRACT: No abnormal distention, wall thickening, or evidence of bowel obstruction. Appendix is normal. PELVIC ORGANS/BLADDER: Urinary bladder is underdistended with mild circumferential urinary bladder wall thickening. Soft tissue contiguity between the rectum and lower bladder. The prostate has been removed. LYMPH NODES: No lymphadenopathy. VESSELS: Arterial calcifications. PERITONEUM / RETROPERITONEUM: No free air or fluid. BONES: Unremarkable. SOFT TISSUES: Unremarkable. IMPRESSION: Subtle findings suggestive of urinary bladder cystitis. Correlate with urinalysis. Soft tissue contiguity between the rectum and lower bladder, can be due to surgery, although if there is recurrent episodes of cystitis, consider rectovesicular fistula. Bilateral renal cysts, largest is a 2.5 cm cyst in the left renal inferior pole. Signed by: Monty Garcia DO on 05/02/2020 1:29 AM Dictated By: MONTY GARCIA DO 8 Transcribed By: SHERIF on 05/02/20128 COPY TO: GONZALEZ MONTES DE OCA MD~ Assessment & Plan Medical Decision Making MDM PT WITH EPIGASTRIC , LEFT ABD AND LEFT FLANK PAIN CBC, CMP, UA, CT ABD/PELVIS, AMYLASE,LIPASE ORDERED TO EVAL FOR PANCREATITIS, UTI, COLITIS, DIVERTICULITIS, KIDNEY STONE, ELECTROLYTE ABNORMALITY i spoke with dr day, dr morgan robles, and dr paez Assessment & Plan Final Impression: (1) Gallstone pancreatitis Depart Disposition: ADMITTED Last Vital Signs Date Time Temp Pulse Resp B/P (MAP) Pulse Ox O2 Delivery O2 Flow Rate FiO2 05/01/20 23:40 82 17 120/77 97 Room Air 05/01/20 22:54 97.8 Home Meds Active Scripts Clindamycin Hcl (CLINDAMYCIN HCL) 150 Mg Capsule, 300 CAP PO Q6H for RUE CELLULITIS for 8 Days, #32 Prov:ALIDA THOMAS MARITIME PILOT 04/26/19 Reported Medications Hydrochlorothiazide (HYDROCHLOROTHIAZIDE) 12.5 Mg Capsule, 12.5 MG PO DAILY 04/24/19 Potassium Chloride (POTASSIUM CHLORIDE) 20 Meq Tab.er.prt, 20 MEQ PO DAILY 04/24/19 Valsartan/Hydrochlorothiazide (DIOVAN HCT 320-25 MG TABLET) 1 Each Tablet, 1 TAB PO DAILY 04/24/19 Carvedilol (COREG) 12.5 Mg Tab, 12.5 MG PO Q8HR 04/24/19 Hydrocodone Bit/Acetaminophen (HYDROCODON-ACETAMINOPH 7.5-325) 1 Each Tablet, 1 TAB PO Q8H PRN for MODERATE PAIN (4-6) 04/14/19 Gabapentin (GABAPENTIN) 300 Mg Capsule, 300 MG PO TID, #60 CAP 04/14/19 Aspirin (ASPIRIN) 81 Mg Tab.chew, 81 MG PO DAILY 04/14/19 [Jardiance] No Conflict Check, 25 MG PO DAILY 01/30/19 Atorvastatin Calcium (ATORVASTATIN CALCIUM) 10 Mg Tablet, 10 MG PO HS 01/30/19 Glimepiride (GLIMEPIRIDE) 2 Mg Tablet, 2 MG PO Q12H 01/30/19 Lansoprazole (LANSOPRAZOLE) 30 Mg Capsule.dr, 30 MG PO DAILY 01/30/19 Metformin Hcl (METFORMIN HCL) 1,000 Mg Tablet, 1000 MG PO BID 01/30/19 Amlodipine Besylate (AMLODIPINE BESYLATE) 10 Mg Tablet, 10 MG PO DAILY 01/30/19 Sitagliptin Phosphate (JANUVIA) 100 Mg Tablet, 100 MG PO DAILY 01/30/19 Medications in the ED Sodium Chloride 1,000 ml @ 999 mls/hr Q1H1M ONCE IV Last administered on 11/10/20at 00:26; Admin Dose 999 MLS/HR; Start 05/02/20 at 00:30; Stop 05/02/20 at 01:30; Status UNV Iopamidol 74,000 mg STK-MED ONCE INJ ; Start 05/02/20 at 00:25; Stop 05/02/20 at 00:17; Status DC Sodium Chloride 50 ml @ ud STK-MED ONCE .ROUTE ; Start 05/02/20 at 00:25; Stop 05/02/20 at 00:17; Status DC GONZALEZ MONTES DE OCA MD May 02, 2020 00:39
--- NOTE | 2020-05-02 01:32 | Diagnostic Imaging Report ---
EXAM: CT Abdomen and Pelvis WITH contrast INDICATION: ^left abd pain ^[id number] ^2350 ^Y COMPARISON: Abdominal CT 01/30/2019. TECHNIQUE: Abdomen and pelvis were scanned utilizing a multidetector helical scanner from the lung base to the pubic symphysis after administration of IV contrast. Coronal and sagittal reformations were obtained. Routine protocol was performed. Scan was performed when during portal venous phase. IV CONTRAST: 100 mL of Isovue 370 ORAL CONTRAST: None COMPLICATIONS: None RADIATION DOSE: Total DLP: 748 mGy*cm Estimated effective dose: (DLP x 0.015 x size factor) mSv CTDIvol has been reviewed. It is below the limits set by the Radiation Protocol Committee (RPC). Dose modulation, iterative reconstruction, and/or weight based adjustment of the mA/kV was utilized to reduce the radiation dose to as low as reasonably achievable. FINDINGS: LINES and TUBES: None. LOWER THORAX: Nonsuspicious nodules in the lower lobes are less than 5 mm, likely benign. No follow-up required. Aortic valve calcifications. Left coronary calcifications. HEPATOBILIARY: No focal hepatic lesions. No biliary ductal dilation. GALLBLADDER: No radio-opaque stones or sludge. No wall thickening. SPLEEN: No splenomegaly. Thin linear calcification along the posterior superior lateral aspect of the spleen, suspect from prior trauma or inflammation. PANCREAS: No focal masses or ductal dilatation. ADRENALS: No adrenal nodules KIDNEYS/URETERS: Kidneys enhance symmetrically. No hydronephrosis. Simple cysts in both kidneys, including a 2.5 cm cyst in the left renal inferior pole. No solid mass lesions. No stones. GI TRACT: No abnormal distention, wall thickening, or evidence of bowel obstruction. Appendix is normal. PELVIC ORGANS/BLADDER: Urinary bladder is underdistended with mild circumferential urinary bladder wall thickening. Soft tissue contiguity between the rectum and lower bladder. The prostate has been removed. LYMPH NODES: No lymphadenopathy. VESSELS: Arterial calcifications. PERITONEUM / RETROPERITONEUM: No free air or fluid. BONES: Unremarkable. SOFT TISSUES: Unremarkable. IMPRESSION: Subtle findings suggestive of urinary bladder cystitis. Correlate with urinalysis. Soft tissue contiguity between the rectum and lower bladder, can be due to surgery, although if there is recurrent episodes of cystitis, consider rectovesicular fistula. Bilateral renal cysts, largest is a 2.5 cm cyst in the left renal inferior pole. Signed by: Monty Garcia DO on 05/02/2020 1:29 AM
[2020-05-02 02:49] LABS: AMYLASE 100 U/L (25-125); LIPASE 112 U/L (8-78)
--- NOTE | 2020-05-02 03:49 | Diagnostic Imaging Report ---
EXAM: Right Upper Quadrant Ultrasound INDICATION: ^UPPER ABD PAIN WITH PANCREATITIS ^[id number] ^0234 ^Y COMPARISON: Abdominal CT 05/01/2020. TECHNIQUE: Transverse and longitudinal images of the right upper abdomen were obtained. FINDINGS: Liver: Size: 19 cm in the right midclavicular line, enlarged Appearance: Increased and heterogeneous echogenicity, smooth contour Mass: No focal masses Gallbladder: Stones/Sludge: Small gallstones Wall: 0.27 cm Appearance: No pericholecystic fluid or hydrops. Sonographic Aponte's Sign: Negative Bile Ducts: Intrahepatic Ducts: No dilatation Extrahepatic Ducts: Common bile duct measures ... cm, no dilatation Pancreas: Not well seen. Right Kidney: Size: 10.8 cm Echogenicity: Normal Parenchymal thickness: Normal Collecting system: No hydronephrosis Stones: None Cyst/Mass: None Vessels: Aorta: Visualized portions are normal Inferior Vena Cava: Visualized portions are normal Main portal vein: Normal size and flow direction. Free Fluid: No ascites or pleural effusion IMPRESSION: Hepatomegaly with hepatic steatosis. Cholelithiasis without evidence of acute cholecystitis. Signed by: Monty Garcia DO on 05/02/2020 3:46 AM
[2020-05-02] MEDS ORDERED: PIPER-TAZ 3.375 GM 50 ML IV ONE (04:00)
--- NOTE | 2020-05-02 04:03 | NUR ---
TRANSFER INITIATED, SPOKE TO MARIANO PICHARDO AT TRANSFER CENTER
[2020-05-02] MEDS ORDERED: PIPER-TAZ 3.375 GM 50 ML ONE (04:09)
[2020-05-02] MEDS: PIPER-TAZ 3.375 GM / NS 50ML IV SCH ×3 (05:53→22:00)
[2020-05-02] MEDS: SODIUM CHLORIDE 0.9% 1000ML 1,000 ML IV SCH ×3 (05:53→20:00)
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
--- OUTSIDE RECORDS SUMMARY | 2020-05-02 06:50 | XMS REPORT | Clinical Summary ---
Author Author DEEJAY KnowableSt. Luke'[facility] CenterRobertson Global Health SolutionsH[facility] Address Unknown Phone Unavailable Care Team Providers Care Pot Firer Name Role Phone PCP Unavailable Allergies No [...] / Dates Group [facility] [id number] 2016-P MEDICARE resent ADV [id number] Advance Directives For more information, please contact: [phone] Date Inactivated Comments Code Status Date Activated 03/25/2019 6:58 PM Full Code 03/19/2019 7:16 PM This code status was determined by: Patient 02/27/2019 6:04 PM Full Code 02/26/2019 2:02 AM This code status was determined by: Patient
--- OUTSIDE RECORDS SUMMARY | 2020-05-02 06:50 | XMS REPORT | Clinical Summary ---
Author Author [facility] L [facility] [facility] Address Unknown Phone Unavailable Care Team Providers Care Dock Builder Name Role Phone Sihva Leung MD PCP Allergies No Known Active [...] URETHROPEXY; S urgeon: Nestor Farfan MD; Location: [facility]; Service: Urology; Laterality: N/A; [...] ot Implanted Type Area Manufactur er 08/31/2022 [id number] / / [id number] Clip [employer] Hem-O-Felice Endoscpc Aplr Surgical N/A: N/A [facility] [id number] Im[facility]; CLOSURE Implanted: Qty: 2 on 02/16/2018 by [employer]; Nestor Sharpe MD at [facility] Surgical Wires 10/07/2022 [id number] / / [id number] Clip Ligt[employer] Hem-O-Felice Endoscpc Aplr Surgical N/A: N/A TAN [facility] - [id number] Implants; CLOSURE Implanted: Qty: 1 on 02/16/2018 by [employer]; Nestor Sharpe MD at [facility] Surgical Wires 10/07/2022 [id number] / / [id number] Clip Ligt[employer] Hem-[employer]-Felice Endoscpc Aplr Surgical N/A: N/A TAN [facility] - [id number] Implants; CLOSURE Implanted: Qty: 1 on 02/16/2018 by [employer]; Nestor Sharpe, MD at [facility] Extenders; [facility] Surgical Wires 08/28/2022 [id number] / / [id number] Clip Ligtng Hem-[employer]-Felice Endoscpc Aplr Surgical N/A: N[facility] [id number] Implants; CLOSURE Implanted: Qty: 2 on 02/16/2018 by [employer]; Nestor Sharpe MD at [facility] Extenders; [facility] Surgical Wires 08/18/2022 [id number] / / [id number] Clip Ligtng Hem-O-Felice Endoscpc Aplr Surgical N/A: N/A [facility] - [id number] Implants; CLOSURE Implanted: Qty: 1 on 02/16/2018 by [employer]; Nestor Sharpe MD at [facility] Extenders; [facility] Surgical Wires Results Not on fileafter 05/02/2019 Insurance Type Payer Benefit Subscriber ID Effective Phone Address Plan / Dates Group PPO BCBS BCBS [id number] 2016-P CHOICE resent PPO/DIMPLE ADRIAN PPO Advance Directives For more information, please contact: [phone] [employer] Explanation Type Date Recorded Advance Directives, 01/26/2018 11:59 AM Living Will and Medical Power of Hematology Specialist
--- OUTSIDE RECORDS SUMMARY | 2020-05-02 06:51 | XMS REPORT | Continuity of Care Document ---
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 Value Reference Range Interpretation Comments POC-GLUCOSE METER (BEAKER) (test code = 1538) 193 mg/dL 70-110 H TESTED AT [place] [id number] [facility] [address] POCT-GLUCOSE [id number] 13:01:00* Test Item Value Reference Range Interpretation Comments POC-GLUCOSE METER (BEAKER) (test code = 1538) 292 mg/dL 70-110 H TESTED AT [facility] [address] [facility] [address] VANCOMYCIN LEVEL, [id number] 11:02:00* Test Item Value Reference Range Interpretation Comments VANCOMYCIN TROUGH (BEAKER) (test code = 522) 8.3 ug/mL 10.0-20.0 L [id number] 10:46:00* Test Item Value Reference Range Interpretation Comments PARTIAL THROMBOPLASTIN TIME (BEAKER) (test code = 760) 56.5 seconds 22.5-36.0 H POCT-GLUCOSE [id number] 08:01:00* Test Item Value Reference Range Interpretation Comments POC-GLUCOSE METER (BEAKER) (test code = 1538) 156 mg/dL 70-110 H TESTED AT [facility] [address] [facility] [address] BASIC METABOLIC [id number] 06:57:00* Test Item Value Reference Range Interpretation [...] GFR IS NOT APPLICABLE FOR DIALYSIS PATIENTS. [id number] 06:22:00* Test Item Value Reference Range Interpretation Comments PARTIAL THROMBOPLASTIN TIME (BEAKER) (test code = 760) 73.1 seconds 22.5-36.0 H [id number] 23:09:00* Test Item Value Reference Range Interpretation Comments PARTIAL THROMBOPLASTIN TIME (BEAKER) (test code = 760) 54.9 seconds 22.5-36.[address], DRAINAGE, [id number] 21:32:00Reason for exam:->right ileopsoas abscess FINAL REPORT PROCEDURE: CT-guided drainage of a right harvinder opsoas abscess. Dose modulation, iterative reconstruction, and/or weight-based a djustment of the mA/kV was utilized to reduce the radiation dose to as low as re asonably achievable. INDICATION: Right iliopsoas abscess. COMPARISON: Recent out side facility CT. SEDATION: Intravenous moderate sed[facility] and monitored under the direction of the undersigned radiologist . The patient's vital signs were monitored throughout the procedure and recorded in the patient's medical record by radiology nursing. Total intraservice time of sedation was 25 minutes. MEDICATIONS: 1 mg Versed, 50 mcg fentanyl DESCRIPTION: After obtaining informed written consent, [facility] and placed in the supine position. Preliminary CT scan revealed a rig ht iliopsoas abscess. A clear path to the collection was identified. [facility] and draped in the [...] a 7 F rench dilator, an 8 Vincentian catheter was inserted into the fluid collection. Appr oximately 30 mL of perilymphatic fluid was aspirated. The catheter was affixed t o the skin and connected to the suction bulb. Samples were sent for analysis. Po st procedure scan showed no immediate complications. IMPRESSION: Successful plac ement of an 8 Vincentian catheter into a right iliopsoas abscess. Signed: Quentin Cunhaeport Verified Date/Time: 03/20/2019 21:32:44 Reading Location: [facility] B1 C013Y CT Body Reading Room Electronically signed by: QUENTIN CUNHA MD on 09:32 PM POCT-GLUCOSE [id number] 21:16:00* Test Item Value Reference Range Interpretation Comments POC-GLUCOSE METER (BEAKER) (test code = 1538) 182 mg/dL 70-110 H TESTED AT [facility] [address] [facility] [address] POCT-GLUCOSE [id number] 17:42:00* Test Item Value Reference Range Interpretation Comments POC-GLUCOSE METER (BEAKER) (test code = 1538) 157 mg/dL 70-110 H TESTED AT [facility] [address] [facility] [address] [id number] 17:21:00* Test Item Value Reference Range Interpretation Comments PARTIAL THROMBOPLASTIN TIME (BEAKER) (test code = 760) 45.9 seconds 22.5-36.0 H POCT-GLUCOSE [id number] 10:53:00* Test Item Value Reference Range Interpretation Comments POC-GLUCOSE METER (BEAKER) (test code = 1538) 128 mg/dL 70-110 H TESTED AT [facility] [address] [facility] [address] BASIC METABOLIC [id number] 05:58:00* Test Item Value Reference Range Interpretation [...] GFR IS NOT APPLICABLE FOR DIALYSIS PATIENTS. [id number] 05:08:00* Test Item Value Reference Range Interpretation Comments PARTIAL THROMBOPLASTIN TIME (BEAKER) (test code = 760) 48.7 seconds 22.5-36.0 H POCT-GLUCOSE [id number] 21:27:00* Test Item Value Reference Range Interpretation Comments POC-GLUCOSE METER (BEAKER) (test code = 1538) 225 mg/dL 70-110 H TESTED AT [facility] [address] [facility] [address] [id number] 20:36:00* Test Item Value Reference Range Interpretation Comments PHOSPHORUS (BEAKER) (test code = 604) 3.7 mg/dL 2.3-4.7 [id number] 20:36:00* Test Item Value Reference Range Interpretation Comments MAGNESIUM (BEAKER) (test code = 627) 1.7 mg/dL 1.6-2.6 BASIC METABOLIC [id number] 20:36:00* Test Item Value Reference Range Interpretation [...] NOT APPLICABLE FOR DIALYSIS PATIENTS. HEPATIC FUNCTION [id number] 20:36:00* Test Item Value Reference Range Interpretation [...] (test code = 347) 20 U/L 6-55 [id number] 20:28:00* Test Item Value Reference Range Interpretation Comments PARTIAL THROMBOPLASTIN TIME (BEAKER) (test code = 760) 43.3 seconds 22.5-36.0 H 6 hours after starting heparin infusion and as indicated per sliding scale PROTHROMBIN TIME/VEG1609-06-29 20:27:00* Test Item Value Reference Range Interpretation [...] heparin infusion and as indicated per sliding scaleCBC (HEMOGRAM ONLY)2019-03-19 20:20:00* Test Item Value Reference [...] 0 -0 BODY FLUID CULTURE + GRAM [id number] 11:52:00* Test Item Value Reference Range Interpretation Comments CULTURE (BEAKER) (test code = 1095) A 4+ Staphylococcus aureus GRAM STAIN RESULT (BEAKER) (test code = 1123) 4+ WBCs GRAM STAIN RESULT (BEAKER) (test code = 66153) 4+ gram positive cocci in clusters POCT-GLUCOSE [id number] 12:41:00* Test Item Value Reference Range Interpretation Comments POC-GLUCOSE METER (BEAKER) (test code = 1538) 286 mg/dL 70-110 H TESTED AT [facility] [address] [facility] [address] POCT-GLUCOSE [id number] 09:06:00* Test Item Value Reference Range Interpretation Comments POC-GLUCOSE METER (BEAKER) (test code = 1538) 129 mg/dL 70-110 H TESTED AT [address] [address] CBC (HEMOGRAM ONLY)2019-02-27 06:39:00* Test Item Value [...] 0 /100 WBC 0 -0 BASIC METABOLIC [id number] 06:25:00* Test Item Value Reference Range Interpretation [...] IS NOT APPLICABLE FOR DIALYSIS PATIENTS. POCT-GLUCOSE [id number] 21:20:00* Test Item Value Reference Range Interpretation Comments POC-GLUCOSE METER (BEAKER) (test code = 1538) 134 mg/dL 70-110 H TESTED AT [place] [address] [facility] [address] BODY FLUID CELL COUNT WITH [id number] 18:42:00* Test Item Value Reference Range Interpretation Comments APPEARANCE FLUID (BEAKER) (test code = 510) Purulent Clear A COLOR FLUID (BEAKER) (test code = 511) Brown Colorless, Stra w A STILES RBC FLUID (BEAKER) (test code = 513) 418918 /cu mm <=1 H ADJUSTED WBC FLUID (BEAKER) (test code = 1691) 167928 /cu mm <=5 H LINING CELLS (BEAKER) [...] (BEAKER) (test code = 2873) EDTA Tube Intracellular cocci present. Degenerated white cells present.CT, DRAINAGE, [id number] 18:06:00Drainage of right iliopsoas abcessFINAL REPORT CT-guided [...] situated collection with a six and 7 Vincentian wire was un successful as the dilators could not penetrate the thickened muscle and the wire coiled. Therefore, using the trocar technique a 7 Vincentian pigtail catheter was i nserted. Approximately 20 cc of pus was aspirated. The sample was submitted to t lab for analysis. COMPLICATIONS: None. ESTIMATED BLOOD LOSS: Minimal. Patient Disposition: The patient was in the same state post procedure as preprocedure. IMPRESSION: Successful CT-guided pigtail catheter into a right iliopsoas absces s. Signed: Vinnie Besteport Verified Date/Time: 02/26/2019 18:06:55 Silvia augustin Location: [address] Body Reading Room -GLUCOSE [id number] 17:34:00* Test Item Value Reference Range Interpretation Comments POC-GLUCOSE METER (BEAKER) (test code = 1538) 113 mg/dL 70-110 H TESTED AT [facility] [address] [facility] [address] BASIC METABOLIC [id number] 05:40:00* Test Item Value Reference Range Interpretation [...] DIALYSIS PATIENTS. CBC W/PLT COUNT & AUTO [id number] 04:41:00* Test Item Value Reference Range Interpretation [...] 2801) 1 % 0-1 CT, PELVIS, W [id number] 01:11:00Reason for exam:->LEG SWELLINGWhat is the patient's [...] ormed as clinically warranted. Signed: Toby Vick MDReport Verified Date/Time : 02/26/2019 01:11:11 C METABOLIC [id number] 23:15:00* Test Item Value Reference Range Interpretation [...] (test code = 700) 97 pg/mL 0-100 [id number] 23:04:00* Test Item Value Reference Range Interpretation Comments PHOSPHORUS (BEAKER) (test code = 604) 3.9 mg/dL 2.3-4.7 [id number] 23:04:00* Test Item Value Reference Range Interpretation Comments MAGNESIUM (BEAKER) (test code = 627) 1.8 mg/dL 1.6-2.6 HEPATIC FUNCTION [id number] 23:04:00* Test Item Value Reference Range Interpretation [...] (test code = 347) 24 U/L 6-55 PT/[id number] 23:03:00* Test Item Value Reference Range Interpretation [...] mechanical heart valves.CBC W/PLT COUNT & AUTO [id number] 22:44:00* Test Item Value Reference Range Interpretation [...] code = 2801) 1 % 0-1 RETROGRADE EWVXCVBUC6794-15-00 08:57:00 [place] [address] Patient Name: MONIK MORENO MR #: [id number] : 1950 Age/Sex: 68/M Req #: [id number] Adm Physician: MAHENDRA LINDSEY MD Ordered by: BENTLEY EDWARDS MD Report #: [id number] Location: MED/SURG3 Room/Bed: [facility] Procedure: DX/R ETROGRADE PYELOGRAM Exam Date: 02/01/19 Exam [...] TO: BENTLEY EDWARDS MD URETHROGRAM (RETRO)2019-02-08 08:57:00 [place] [address] Patient Name: MONIK MORENO MR #: [id number] : 1950 Age/Sex: 68/M Req #: [id number] Adm Physician: MAHENDRA LINDSEY MD Ordered by: BENTLEY EDWARDS MD Report #: [id number] Location: [facility] Room/Bed: Critical access hospital Procedure: [id number] DX/U RETHROGRAM (RETRO) Exam Date: 02/01/19 Exam Time: 11 36 REPORT STATUS: Signed Retr ograde urethrogram and pyelogram. History: Right iliac muscle abscess. Comparison: None available. Discussion: Procedure was performed by urol gaurav. Contrast was injected in a retrograde fashion [...] Interpretation Comments Bedside Glucose (test code = 87372-0) 152 70-120 H Meter ID: [id number] [facility] CenterDifferent[facility] Cells Qghnpqy2104-21-99 08:10:00* Test Item Value Reference Range Interpretation Comments Differential Total Cells Counted (test code = Differkatherine tial Total Cells Counted) 100 [facility] (Manual)2019-02-01 08:10:00 * Test Item Value Reference Range Interpretation Comments Neutrophils % (Manual) (test code = 61318-2) 82 40-74 H [facility] HospitalLymphocytes % (Manual)2019-02-01 08:10:00 * Test Item Value Reference Range Interpretation Comments Lymphocytes % (Manual) (test code = 737-7) 8 19-48 L [facility] HospitalMonocytes % (Manual)2019-02-01 08:10:00* Test Item Value Reference Range Interpretation Comments Monocytes % (Manual) (test code = 744-3) 8 3.4-9.0 [facility]Eosinophils % (Manual)2019-02-01 08:10:00 * Test Item Value Reference Range Interpretation Comments Eosinophils % (Manual) (test code = 714-6) 2 0-7 [facility] HospitalPlatelet Qlmvhauv6440-05-71 08:10:00* Test Item Value Reference Range Interpretation Comments Platelet Estimate (test code = 37207-8) ADEQUATE [facility] HospitalPlatelet Morphology Uquibaa2998-43-43 08:10:00* Test Item Value Reference Range Interpretation Comments Platelet Morphology Comment (test code = 04962-3) NORMAL [facility] HospitalProthrombin [id number] 07:13:00* Test Item Value Reference Range Interpretation Comments Prothrombin Time (test code = 5902-2) 13.8 11.9-14.5 [facility] HospitalProthromb Time International Ratio 2019-02-01 07:13:00* Test Item Value Reference Range Interpretation Comments Prothromb Time International Ratio (test code = 6301-6) 1.01 Oral Anticoagulant Therapy INR Values:1. Low Intensity Therapy 1.5 - 2.02 . Moderate Intensity Therapy 2.0 - 3.03. High Intensity Therapy(1) 2.5 - 3. 54. High Intensity Therapy(2) 3.0 - 4.05. Panic Value INR > 5.0 [facility] HospitalActivated Partial Thromboplast Time 2019-02-01 07:13:00* Test Item Value Reference Range Interpretation Comments Activated Partial Thromboplast Time (test code = 82423-7) 28.1 23.8-35.5 [facility] HospitalWhite Blood Fzsir4868-13-80 07:11:00* Test Item Value Reference Range Interpretation Comments White Blood Count (test code = 6690-2) 6.78 4.8-10.8 [facility] HospitalRed Blood Iwcaa4851-70-63 07:11:00* Test Item Value Reference Range Interpretation Comments Red Blood Count (test code = 789-8) 3.46 4.3-5.7 L [facility] HospitalHemoglobin2019-08-12 07:11:00* Test Item Value Reference Range Interpretation Comments Hemoglobin (test code = 30942-3) 9.2 14.0-18.0 L [facility] HospitalHematocrit2019-08-12 07:11:00* Test Item Value Reference Range Interpretation Comments Hematocrit (test code = 4544-3) 29.9 38.2-49.6 L [facility] HospitalMean Corpuscular Exltov6730-50-43 07:11:00* Test Item Value Reference Range Interpretation Comments Mean Corpuscular Volume (test code = 787-2) 86.4 81-99 [facility] HospitalMean Corpuscular Uymutfbxkn0435-71-53 07:11:00* Test Item Value Reference Range Interpretation Comments Mean Corpuscular Hemoglobin (test code = 785-6) 26.6 28-32 L [facility] HospitalMean Corpuscular Hemoglobin Concent 2019-02-01 07:11:00* Test Item Value Reference Range Interpretation Comments Mean Corpuscular Hemoglobin Concent (test code = 786-4) 30.8 31-35 L [facility] HospitalRed Cell Distribution Usftt2830-95-73 07:11:00* Test Item Value Reference Range Interpretation Comments Red Cell Distribution Width (test code = 15638-8) 15.1 11.7 -14.4 H [facility] HospitalPlatelet Bgcod0611-38-68 07:11:00* Test Item Value Reference Range Interpretation Comments Platelet Count (test code = 777-3) 353 140-360 [facility] HospitalNeutrophils (%) (Auto)2019-02-01 07:11:00 * Test Item Value Reference Range Interpretation Comments Neutrophils (%) (Auto) (test code = 29739-6) 75.4 38.7-80.0 [facility] HospitalLymphocytes (%) (Auto)2019-02-01 07:11:00 * Test Item Value Reference Range Interpretation Comments Lymphocytes (%) (Auto) (test code = 736-9) 8.6 18.0-39.1 L [facility] HospitalMonocytes (%) (Auto)2019-02-01 07:11:00* Test Item Value Reference Range Interpretation Comments Monocytes (%) (Auto) (test code = 5905-5) 11.1 4.4-11.3 [facility] HospitalEosinophils (%) (Auto)2019-02-01 07:11:00 * Test Item Value Reference Range Interpretation Comments Eosinophils (%) (Auto) (test code = 713-8) 4.0 0.0-6.0 [facility] HospitalBasophils (%) (Auto)2019-02-01 07:11:00* Test Item Value Reference Range Interpretation Comments Basophils (%) (Auto) (test code = 706-2) 0.3 0.0-1.0 [facility] HospitalIM GRANULOCYTES %2019-02-01 07:11:00* Test Item Value Reference Range Interpretation Comments IM GRANULOCYTES % (test code = IM GRANULOCYTES %) 0.6 0.0- 1.0 [facility] HospitalNeutrophils # (Auto)2019-02-01 07:11:00* Test Item Value Reference Range Interpretation Comments Neutrophils # (Auto) (test code = 751-8) 5.1 2.1-6.9 [facility] HospitalLymphocytes # (Auto)2019-02-01 07:11:00* Test Item Value Reference Range Interpretation Comments Lymphocytes # (Auto) (test code = 44308-4) 0.6 1.0-3.2 L [facility] HospitalMonocytes # (Auto)2019-02-01 07:11:00* Test Item Value Reference Range Interpretation Comments Monocytes # (Auto) (test code = 742-7) 0.8 0.2-0.8 [facility] HospitalEosinophils # (Auto)2019-02-01 07:11:00* Test Item Value Reference Range Interpretation Comments Eosinophils # (Auto) (test code = 711-2) 0.3 0.0-0.4 [facility] HospitalBasophils # (Auto)2019-02-01 07:11:00* Test Item Value Reference Range Interpretation Comments Basophils # (Auto) (test code = 704-7) 0.0 0.0-0.1 [facility] HospitalAbsolute Immature Granulocyte (auto 2019-02-01 07:11:00* Test Item Value Reference Range Interpretation Comments Absolute Immature Granulocyte (auto (michela t code = Absolute Immature Granulocyte (auto) 0.04 0-0.1 [facility]lineodium Jsfxv9393-25-29 07:07:00* Test Item Value Reference Range Interpretation Comments Sodium Level (test code = 2951-2) 138 136-145 [facility] HospitalPotassium Uogqb4902-60-82 07:07:00* Test Item Value Reference Range Interpretation Comments Potassium Level (test code = 2823-3) 3.4 3.5-5.1 L [facility] HospitalChloride Fynyl3204-43-49 07:07:00* Test Item Value Reference Range Interpretation Comments Chloride Level (test code = 2075-0) 104 98-107 [facility] HospitalCarbon Dioxide Xhycs8126-52-25 07:07:00* Test Item Value Reference Range Interpretation Comments Carbon Dioxide Level (test code = 2028-9) 26 22-29 [facility] HospitalAnion Zkc5351-00-67 07:07:00* Test Item Value Reference Range Interpretation Comments Anion Gap (test code = 88349-4) 11.4 8-16 [facility] HospitalBlood Urea Qezmfmyn5937-62-24 07:07:00* Test Item Value Reference Range Interpretation Comments Blood Urea Nitrogen (test code = 3094-0) 10 7-26 [facility] HospitalCreatinine2019-08-12 07:07:00* Test Item Value Reference Range Interpretation Comments Creatinine (test code = 2160-0) 0.73 0.72-1.25 [facility] HospitalBUN/Creatinine Gxoff3414-88-00 07:07:00* Test Item Value Reference Range Interpretation Comments BUN/Creatinine Ratio (test code = 3097-3) 14 6-25 [facility] HospitalEstimat Glomerular Filtration Rate 2019-02-01 07:07:00* Test Item Value Reference Range Interpretation Comments Estimat Glomerular Filtration Rate (test code = 983135902) > 60 >60 Ranges were taken from the National Kidney Disease Education Program and the [facility] Foundation literature.Reference ranges:60 or greater: Btglpb46-71 ( for 3 consecutive months): Chronic kidney disease 15 or less: Kidney failureNortheast Baptist HospitalGlucose Zdybv9122-77-25 07:07:00* Test Item Value Reference Range Interpretation Comments Glucose Level (test code = TTN9666) 130 74-118 H [facility] HospitalCalcium Plfgk0390-16-96 07:07:00* Test Item Value Reference Range Interpretation Comments Calcium Level (test code = 97651-2) 9.0 8.4-10.2 [facility] HospitalMagnesium Taydh2868-24-21 07:07:00* Test Item Value Reference Range Interpretation Comments Magnesium Level (test code = 16634-1) 1.6 1.3-2.1 [facility] HospitalTotal Uvooktjdu8551-66-51 08:30:00* Test Item Value Reference Range Interpretation Comments Total Bilirubin (test code = 1975-2) 0.2 0.2-1.2 [facility] HospitalAspartate Amino Transf (AST/SGOT) 2019-01-31 08:30:00* Test Item Value Reference Range Interpretation Comments Aspartate Amino Transf (AST/SGOT) (test code = Aspartate Amino Transf (AST/SGOT)) 10 5-34 [facility] HospitalAlanine Aminotransferase (ALT/SGPT) 2019-01-31 08:30:00* Test Item Value Reference Range Interpretation Comments Alanine Aminotransferase (ALT/SGPT) (test code = 1742-6) 11 0-55 [facility] HospitalTotal Gruqxlk2007-40-13 08:30:00* Test Item Value Reference Range Interpretation Comments Total Protein (test code = 2885-2) 6.6 6.5-8.1 [facility] HospitalAlbumin2019-08-11 08:30:00* Test Item Value Reference Range Interpretation Comments Albumin (test code = 1751-7) 2.4 3.5-5.0 L [facility] HospitalGlobulin2019-08-11 08:30:00* Test Item Value Reference Range Interpretation Comments Globulin (test code = 46847-7) 4.2 2.3-3.5 H [facility] HospitalAlbumin/Globulin Gxvwx0971-91-54 08:30:00 * Test Item Value Reference Range Interpretation Comments Albumin/Globulin Ratio (test code = 1759-0) 0.6 0.8-2.0 L [facility] HospitalAlkaline Bzvkcguhvve6923-01-06 08:30:00* Test Item Value Reference Range Interpretation Comments Alkaline Phosphatase (test code = 6768-6) 61 40-150 [facility] HospitalCT ABDOMEN/PELVIS P3004-29-27 22:49:00 [facility] [address] [place] [address] Patient Name: MONIK MORENO MR #: [id number] : 1950 Age/Sex: 68/M Req #: [id number] Adm Physician: Ordered by: RANDY LANZA MD Report #: [id number] Location: ER Room/Bed: Procedure: 3072-5025 C T/CT ABDOMEN/PELVIS W Exam Date: 01/30/19 [...] M.D. on 01/30/2019 11:08 PM Dictated By: THEO SAUER MD, MD 2 308 Transcribed By: SHERIF on 01/30/19 4914 COPY TO: RANDY LANZA Urine LHA9775-37-25 20:17:00* Test Item Value Reference Range Interpretation Comments Urine WBC (test code = 5821-4) 0-5 0-5 [facility] HospitalUrine [id number] 20:17:00* Test Item Value Reference Range Interpretation Comments Urine RBC (test code = 73482-2) >50 0-5 H [facility] HospitalUrine Lkciacuu1958-48-76 20:17:00* Test Item Value Reference Range Interpretation Comments Urine Bacteria (test code = 82401-7) RARE NONE [facility] HospitalUrine Epithelial Bdvmk5960-80-52 20:17:00 * Test Item Value Reference Range Interpretation Comments Urine Epithelial Cells (test code = 89191-6) RARE NONE [facility] HospitalUrine Rfvnz3612-10-00 20:01:00* Test Item Value Reference Range Interpretation Comments Urine Color (test code = 5778-6) YELLOW YELLOW [facility] [facility] [id number] 20:01:00* Test Item Value Reference Range Interpretation Comments Urine Clarity (test code = 26906-4) SL CLOUDY CLEAR [facility] [id number] 20:01:00 * Test Item Value Reference Range Interpretation Comments Urine Specific [place] (test code = 5811-5) 1.020 1.010-1.02 5 [facility] [id number] 20:01:00* Test Item Value Reference Range Interpretation Comments Urine pH (test code = 31035-4) 7 5-7 [facility]ukocyte [id number] 20:01:00* Test Item Value Reference Range Interpretation Comments Urine Leukocyte Esterase (test code = 51711-8) NEGATIVE NEGATIV E [facility] [id number] 20:01:00* Test Item Value Reference Range Interpretation Comments Urine Nitrite (test code = 11352-3) NEGATIVE NEGATIVE [facility] [id number] 20:01:00* Test Item Value Reference Range Interpretation Comments Urine Protein (test code = 19365-4) 3+ NEGATIVE H [facility] Glucose (UA)2019-01-30 20:01:00* Test Item Value Reference Range Interpretation Comments Urine Glucose (UA) (test code = 56286-6) 3+ [facility]GATIVE [facility] [id number] 20:01:00* Test Item Value Reference Range Interpretation Comments Urine Ketones (test code = 90713-6) NEGATIVE NEGATIVE [facility] [id number] 20:01:00* Test Item Value Reference Range Interpretation Comments Urine Urobilinogen (test code = 44569-3) 0.2 0.2-1 [facility] [id number] 20:01:00* Test Item Value Reference Range Interpretation Comments Urine Bilirubin (test code = 1977-8) NEGATIVE NEGATIVE [facility] [id number] 20:01:00* Test Item Value Reference Range Interpretation Comments Urine Blood (test code = 18422-7) 3+ NEGATIVE [facility] WHOLE [id number] 14:41:14CLINICAL INDICATION: dx: c61, r/o mets, prostate ca, asymptomaticMODALITY: Jamgo dual head gamma cameraTECHNIQUE: 25 mCi Tc [...]
--- NOTE | 2020-05-02 07:00 | NUR ---
report received from Aleks Teague RN
--- NOTE | 2020-05-02 10:40 | Consultation ---
DATE OF CONSULTATION: 05/02/2020 CHIEF COMPLAINT: Abdominal pain. HISTORY OF PRESENT ILLNESS: The patient is a 69-year-old male with a 3-day history of upper abdominal pain radiating to the back with some nausea. No vomiting. No fever, chills, or diarrhea. The patient states since visit to the ER, pain has lessened somewhat with pain medications. PAST MEDICAL HISTORY: Metabolic syndrome with hypertension, diabetes, hyperlipidemia, prostate cancer, GERD, reflux. PAST SURGICAL HISTORY: Positive for prostatectomy. ALLERGIES: HE HAS NO DRUG ALLERGIES. SOCIAL HISTORY: He does not smoke or drink alcohol. REVIEW OF SYSTEMS: No chest pain, shortness of breath, cough, or fevers. PHYSICAL EXAMINATION: VITAL SIGNS: Stable, afebrile. GENERAL: He is awake, alert, in moderate discomfort. HEENT: Sclera anicteric. NECK: Supple. LUNGS: Clear. HEART: Regular rate and rhythm. ABDOMEN: Soft with some guarding in the epigastrium with no rebound tenderness. EXTREMITIES: No cyanosis or edema. LABORATORY DATA: White cell count is 7, hemoglobin of 14, platelet count of 253, creatinine of 1.3. Liver function enzymes within normal limits with lipase of 121 and amylase of 127. Ultrasound of the gallbladder showed gallstone and sludge with no wall thickening. CT of the abdomen showed findings suggestive of urinary bladder cystitis. ASSESSMENT: Abdominal pain in the patient with gallstone and sludge with mildly elevated lipase and amylase. PLAN: MRCP pending. Consideration for laparoscopic cholecystectomy. MD SHERMAN Meadows/BENNETT /[id number]
--- NOTE | 2020-05-02 10:48 | NUR ---
1st attempt to give report, no answer at this time
[2020-05-02] MEDS ORDERED: HYDRALAZINE HCL 20 MG/ML VIAL IV PRN (11:15)
--- NOTE | 2020-05-02 11:41 | Diagnostic Imaging Report ---
EXAM: MRI of the abdomen with and without contrast with MRCP INDICATION: Gallstone pancreatitis. COMPARISON: Ultrasound 05/02/2020. CT 05/01/2020 TECHNIQUE: Multiplanar and multisequence imaging was performed of the abdomen. T1 and T2-weighted images were obtained with and without contrast. T1-weighted in and [id number] . M.R.C.P. technique: Multiplanar, multisequence MRCP was performed, with sequences including coronal turbo spin-echo T1-weighted scans, [facility] MRCP scans, coronal spin, coronal MPR 2, [facility], [facility] MRCP HAWK. Discussion: LOWER THORAX: Unremarkable. HEPATOBILIARY: There is diffuse loss of signal on out of phase images, consistent with diffuse hepatic steatosis. No focal hepatic lesions. No biliary ductal dilation. GALLBLADDER: Single gallstone is visualized within the gallbladder. No wall thickening. SPLEEN: No splenomegaly. PANCREAS: No focal masses or ductal dilatation. ADRENALS: No adrenal nodules KIDNEYS/URETERS: Kidneys enhance symmetrically. No hydronephrosis. Cysts in the bilateral kidneys measuring up to 3 cm in interpolar region of the left kidney. No stones. GI TRACT: No abnormal distention, wall thickening, or evidence of bowel obstruction. LYMPH NODES: No lymphadenopathy. VESSELS: Unremarkable. PERITONEUM / RETROPERITONEUM: No free air or fluid. BONES: Unremarkable. SOFT TISSUES: Unremarkable. IMPRESSION: Cholelithiasis. No findings to suggest acute cholecystitis or choledocholithiasis. No biliary duct dilation. Unremarkable appearance of the pancreas. Hepatic steatosis Signed by: Jose Lantigua MD on 05/02/2020 11:38 AM
[2020-05-02] MEDS ORDERED: DEXTROSE 50% SYRINGE 50 ML IV PRN (11:45)
[2020-05-02 12:13] VITALS: BP 126/88
[2020-05-02 14:36] VITALS: BP 126/88
--- NOTE | 2020-05-02 14:46 | History and Physical ---
PRIMARY CARE PHYSICIAN: Dr. Teto Brown at [facility]. CHIEF COMPLAINT: Generalized abdominal pain radiating to the back. HISTORY OF PRESENT ILLNESS: This is a 69-year-old male with past medical history of hypertension, high cholesterol, diabetes type 2, GERD and prostate cancer, presented to the ER with complaints of abdominal pain that started about seven days ago, progressively getting worse. He denies any fever, chills, hematuria, dysuria, nausea, or vomiting. Denies any chest pain, shortness of breath, diaphoresis, melena. He describes the pain as diffused abdominal pain and with poor appetite for the past few days. So presented to the ER for further evaluation. In ER, creatinine was 1.31, BUN 40, lipase 121. Ultrasound of the abdomen showed hepatomegaly and cholelithiasis without evidence of acute cholecystitis. CT abdomen and pelvis was suggestive of urinary bladder cystitis and bilateral renal cysts, largest is 2.5 cm cyst in the left renal area. PAST MEDICAL HISTORY: 1. Hypertension. 2. High cholesterol. 3. Diabetes type 2. 4. GERD. 5. Prostate cancer. PAST SURGICAL HISTORY: He had prostatectomy. FAMILY MEDICAL HISTORY: He reports mother has diabetes and unknown of fathers medical history. SOCIAL HISTORY: He denies any tobacco, alcohol or illicit drug use. Lives with family at home. ALLERGIES: NO KNOWN DRUG ALLERGIES. REVIEW OF SYSTEMS: Twelve systems reviewed and negative except as reported in HPI. PHYSICAL EXAMINATION: VITAL SIGNS: Temperature 98.8, pulse is 77, respirations 18, blood pressure 129/70, pulse ox is 99% on room air. GENERAL: No acute distress. HEENT: Normocephalic, atraumatic. NECK: Supple. CARDIOVASCULAR: Regular rate and rhythm. LUNGS: Clear to auscultation. ABDOMEN: Soft and mild tender in the right upper quadrant and lower quadrant. NEURO: Alert, awake, and oriented x3. MUSCULOSKELETAL: Moves all extremities. No edema. LABORATORY DATA: WBC 6.96, hemoglobin 14.7, hematocrit 45.4, platelets 253. Sodium 137, potassium 3.7, CO2 of 28, BUN is 40, creatinine 1.31, estimated GFR 54, lipase 121, amylase 127. UA negative for leukocyte esterase, few WBCs and bacteria. Coronavirus PCR is pending. IMAGING DATA: Gallbladder ultrasound shows cholelithiasis without evidence of acute cholecystitis. CT abdomen suggestive of urinary bladder cystitis and bilateral renal cysts, largest is at 2.5 cm cyst in the left renal inferior pole. IMPRESSION AND PLAN: 1. Abdominal pain with gallstone pancreatitis. Lipase is elevated at 121, imaging noted. We will continue with IV fluids and pain management. Start clear liquids. MRCP is pending. Dr. Koenig of surgical team consulted. Plan for lap cholecystectomy tomorrow. 2. Acute kidney injury. Creatinine is 1.31 likely due to and abdominal pain. We will continue with IV fluids . 3. Hypertension. Stable. We will treat with hydralazine as needed. 4. Diabetes type 2. Follow up on sliding scale insulin. 5. High cholesterol. We will resume medications tomorrow. 6. Prostate cancer. CT abdomen is suggestive of urinary bladder cystitis. UA is negative. We will continue with Zosyn. Denies any dysuria or hematuria. 7. Gastrointestinal and deep venous thrombosis prophylaxis. No anticoagulation due to possible surgery tomorrow. Dictated by RAJENDRA Tim Lenka Vega MD MY/MODL /[id number]
[2020-05-02] MEDS: INSULIN REGULAR, HUMAN 100 UNIT/1 ML 3ML VIAL SQ SCH ×2 (16:44→20:28)
[2020-05-02 16:47] VITALS: BP 136/83
--- NOTE | 2020-05-02 18:35 | NUR ---
Paged Dr. Koenig to see if HIDA scan needs to be done tonight. Waiting transportation planner back
--- NOTE | 2020-05-02 18:47 | NUR ---
Per DEVONTE Garrett for HIDA to be done tomorrow 05/03/2020
--- NOTE | 2020-05-02 19:10 | NUR ---
patient received awake, alert, lying quietly in bed. no c/o pain noted at this time. patient npo for hida scan in am. patient verbalizes understanding of this. pm assessment complete. call fiore placed within reach. patient instructed to call for assistance when needed.
[2020-05-02 20:00] VITALS: BP 137/85
[2020-05-02 20:58] VITALS: BP 137/85
[2020-05-03] VITALS: BP 150/88
[2020-05-03 04:00] VITALS: BP 138/79
[2020-05-03 05:09] LABS: BASOPHILS % 0.4 % (0.0-1.0); EOSINOPHILS # (AUTO) 0.5 (0.0-0.4); EOSINOPHILS % 10.2 % (0.0-6.0); HEMATOCRIT 41.7 % (38.2-49.6); HEMOGLOBIN 13.2 g/dL (14.0-18.0); LYMPHOCYTES # (AUTO) 0.8 (1.0-3.2); LYMPHOCYTES % 16.4 % (18.0-39.1); MEAN CORPUSCULAR HEMOGLOBIN 28.4 pg (28-32); MEAN CORPUSCULAR HGB CONC 31.7 g/dL (31-35); MEAN CORPUSCULAR VOLUME 89.9 fL (81-99); MONOCYTES # (AUTO) 0.6 (0.2-0.8); MONOCYTES % 11.2 % (4.4-11.3); NEUTROPHILS # (AUTO) 3.1 (2.1-6.9); NEUTROPHILS % 61.2 % (38.7-80.0); PLATELET COUNT 182 x10e3/uL (140-360); RED BLOOD COUNT 4.64 x10e6/uL (4.3-5.7); RED CELL DISTRIBUTION WIDTH 15.5 % (11.7-14.4)
[2020-05-03] MEDS: PIPER-TAZ 3.375 GM / NS 50ML IV SCH ×3 (05:16→22:46)
[2020-05-03] MEDS: SODIUM CHLORIDE 0.9% 1000ML 1,000 ML IV SCH ×2 (05:16→21:26)
[2020-05-03 05:31] LABS: ALANINE AMINOTRANSFERASE 15 IU/L (0-55); ALBUMIN 3.3 g/dL (3.5-5.0); ALBUMIN/GLOBULIN RATIO 1.1 (0.8-2.0); ALKALINE PHOSPHATASE 37 IU/L (40-150); AMYLASE 81 U/L (25-125); ANION GAP 10.6 mmol/L (8-16); BLOOD UREA NITROGEN 12 mg/dL (7-26); BUN/CREATININE RATIO 15 (6-25); CALCIUM 8.3 mg/dL (8.4-10.2); CARBON DIOXIDE 29 mmol/L (22-29); CHLORIDE 105 mmol/L (98-107); EST GLOMERULAR FILTRATION RATE > 60 ML/MIN (60-); GLUCOSE 169 mg/dL (74-118); LIPASE 71 U/L (8-78); POTASSIUM 3.6 mmol/L (3.5-5.1); SODIUM 141 mmol/L (136-145)
[2020-05-03] MEDS: INSULIN REGULAR, HUMAN 100 UNIT/1 ML 3ML VIAL SQ SCH ×4 (07:30→21:00)
[2020-05-03] MEDS: FAMOTIDINE 20 MG/2 ML VIAL IV SCH (08:07)
[2020-05-03 09:12] VITALS: BP 134/86
[2020-05-03 09:28] VITALS: BP 134/86
[2020-05-03 13:36] VITALS: BP 146/93
--- NOTE | 2020-05-03 19:53 | Progress Note ---
DATE: 05/03/2020 CONSULTANTS: 1. Dr. Koenig, Surgical team. 2. Dr. Singh, GI. SUBJECTIVE: The patient is sitting up in bed, reports has more left-sided abdominal pain than the right upper quadrant. HIDA scan is pending. He denies any dysuria, chest pain, shortness of breath, nausea, vomiting, fever, or chills. OBJECTIVE: VITAL SIGNS: Temperature is 98.0, pulse is 81, respirations 17, blood pressure 134/86, pulse ox is 98% on room air. GENERAL: No acute distress. HEENT: Normocephalic and atraumatic. NECK: Supple. CARDIOVASCULAR: Regular rate and rhythm. LUNGS: Clear to auscultation. ABDOMEN: Soft, mild tenderness in the right upper quadrant, increased on the left upper and lower quadrants. NEURO: Alert, awake, and oriented x3. MUSCULOSKELETAL: Moves all extremities. No edema. SKIN: Dry and intact. PSYCH: Calm and pleasant. LABORATORY DATA: WBC 5.11, hemoglobin 13.2, hematocrit 41.7, and platelets 182. Sodium 141, potassium 3.6, CO2 of 29, creatinine 0.8, estimated GFR is greater than 60, blood glucose 169. AST 15, ALT 15. IMAGING: MRCP shows cholelithiasis. No findings to acute cholecystitis or choledocholithiasis. No biliary duct dilation, unremarkable appearance of the pancreas. IMPRESSION AND PLAN: 1. Abdominal pain, likely due to gallstones. Imaging shows cholelithiasis without acute cholecystitis. Lipase is elevated to 121, but imaging did not show pancreatitis. We will continue with IV fluids and pain management. Dr. Koenig with Surgical team has been consulted. Pending HIDA is positive, we will proceed with laparoscopic cholecystectomy. 2. Left-sided abdominal pain. GI has been consulted. Plans are EGD and colonoscopy for further evaluation. 3. Acute kidney injury. Creatinine is improving with IV fluids. 4. Hypertension, stable. We will treat with hydralazine as needed. 5. Diabetes type 2. Sliding scale insulin when p.o. started. 6. High cholesterol. We will resume statin once p.o. started. 7. Prostate cancer. CT abdomen is suggestive of urinary bladder cystitis. UA is negative. We will continue with Zosyn. 8. Gastrointestinal and deep venous thrombosis prophylaxis. No anticoagulation due to possible surgery/GI workup. Dictated by Mckenzie Myers, ANP MD TIMOTEO Neri/BENNETT /[id number]
--- NOTE | 2020-05-03 19:56 | Diagnostic Imaging Report ---
Hepatobiliary Scan with Gallbladder Ejection Fraction Reason for exam: RUQ pain; pancreatitis Technique: Following intravenous administration of 6.4 millicuries of Tc-99m mebrofenin, dynamic images of the abdomen in the anterior projection were obtained through 60 minutes. Sincalide (CCK analog) 2.0 micrograms was administered intravenously over 30 minutes with additional imaging for determination of gallbladder ejection fraction. Discussion: Perfusion of the liver is normal. Extraction of tracer by the liver parenchyma is normal. Tracer appears promptly within the biliary tract. The gallbladder begins to fill by 10 minutes post injection of tracer and fills adequately. Tracer is seen in the small bowel during the sincalide infusion. There is no contractile response by the gallbladder to the pharmacologic dose of sincalide. No emptying of the gallbladder occurs during the 30 minute infusion. Impression: 1. Filling of the gallbladder excludes acute cystic duct obstruction/acute cholecystitis. 2. The gallbladder ejection fraction is undefined as there is no emptying of the gallbladder during the infusion of sincalide. This absence of a contractile response to sincalide supports the clinical diagnosis of chronic cholecystitis/gallbladder dyskinesia. Signed by: Dr. Gauri Lee M.D. on 05/03/2020 7:52 PM
[2020-05-03 20:00] VITALS: BP 148/105
--- NOTE | 2020-05-03 22:17 | NUR ---
CALLED MD ANDERSEN PER REQUEST OF HIDA SCAN RESULTS. LEFT MESSAGE. AWAITING CALL BACK.
--- NOTE | 2020-05-03 22:22 | NUR ---
SPOKE TO MD ANDERSEN. NEW ORDERS RECEIVED.
--- NOTE | 2020-05-03 23:15 | NUR ---
RECEIVED CONSENT VIA CULTURAL LINK. B[employer], [place] [id number].
[2020-05-04] VITALS (7 sets, daily range): BP systolic 141–157; BP diastolic 80–111
[2020-05-04] MEDS: MORPHINE SULFATE INJ 4 MG/ML INJ 1ML IV PRN (01:03)
[2020-05-04] MEDS: PIPER-TAZ 3.375 GM / NS 50ML IV SCH ×3 (05:20→21:54)
--- NOTE | 2020-05-04 06:54 | NUR ---
REPORT GIVEN TO DAYSHIFT NURSE. ALERT AND ORIENTED. RESTING IN BED. NO SIGNS IV INFILTRATION. BED LOCKED AND IN LOW POSITION. CALL LIGHT WITHIN REACH.
[2020-05-04] MEDS: INSULIN REGULAR, HUMAN 100 UNIT/1 ML 3ML VIAL SQ SCH ×4 (07:30→21:00)
[2020-05-04] MEDS: FAMOTIDINE 20 MG/2 ML VIAL IV SCH (08:18)
[2020-05-04] MEDS: SODIUM CHLORIDE 0.9% 1000ML 1,000 ML IV SCH (10:29)
--- NOTE | 2020-05-04 11:43 | NUR ---
Pt being transferred to OR at this time. 0 s/s of acute distress noted at time of transfer. Family at the bedside at this time. Denies any pain.
[2020-05-04] MEDS ORDERED: LIDOCAINE 1% W/EPINEPHRINE 20 ML VIAL ONE (12:17)
[2020-05-04] MEDS ORDERED: BUPIVACAINE 0.25% 30ML SDV ONE (12:17)
[2020-05-04] MEDS ORDERED: PROPOFOL IV EMULSION 10 MG/ML 20 ML VIAL ONE (12:41)
[2020-05-04] MEDS ORDERED: SEVOFLURANE INHAL SOLN 250 ML PEN BTL ONE (12:41)
[2020-05-04] MEDS ORDERED: DEXAMETHASONE SOD PHOS INJ 4 MG/ML VIAL ONE (12:41)
[2020-05-04] MEDS ORDERED: NEOSTIGMINE 1 MG/ML 10ML VIAL ONE (12:41)
[2020-05-04] MEDS ORDERED: ONDANSETRON HCL INJ 2MG/ML 2ML 2 MG/ML VIAL ONE (12:41)
[2020-05-04] MEDS ORDERED: GLYCOPYRROLATE INJ 0.2 MG/ML VIAL ONE (12:41)
[2020-05-04] MEDS ORDERED: ROCURONIUM BROMIDE 10 MG/ML 5ML VIAL IV ONE (12:41)
[2020-05-04] MEDS ORDERED: EPHEDRINE SULFATE INJ 50 MG/ML VIAL ONE (12:41)
[2020-05-04] MEDS ORDERED: LIDOCAINE HCL 2% LOCAL INJ 5 ML SDV VIAL INJ ONE (12:41)
[2020-05-04] MEDS ORDERED: SUGAMMADEX SODIUM 200 MG/2 ML VIAL IV ONE (13:37)
--- NOTE | 2020-05-04 13:46 | NUR ---
pt was very happy to see teaching manager , he expressed trudy and need of prayer and healing , teaching manager provided prayer , hope building and blessings. pt expressed more yoselin and peace and hope. chaplain Anirudh
[2020-05-04] MEDS ORDERED: FENTANYL CITRATE/PF 100MCG/2 ML INJ ONE (13:51)
--- NOTE | 2020-05-04 14:15 | NUR ---
Pt received back from PACU at this time. Pt is aox4, a little drowsy. Pt has 4 trochar sites to abdomen covered with bandaids. Pt can begin clear liquid diet and advance as tolerated.
--- NOTE | 2020-05-04 14:32 | Progress Note ---
DATE: 05/04/2020 CONSULTANTS: 1. Dr. Koenig, Surgical team. 2. Dr. Singh, GI. SUBJECTIVE: The patient is seen in PACU, status post laparoscopic cholecystectomy. Reports abdominal pain. He denies any chest pain, shortness of breath, nausea, or vomiting. OBJECTIVE: VITAL SIGNS: Temperature 97.5, pulse is 69, respirations 20, blood pressure 153/95, and pulse ox is 98% on room air. GENERAL: No acute distress. HEENT: Normocephalic and atraumatic. NECK: Supple. LUNGS: Clear to auscultation. CARDIOVASCULAR: Regular rate and rhythm. ABDOMEN: Soft. Surgical site intact, tender to touch. NEURO: Alert, awake, and oriented x3. MUSCULOSKELETAL: Moves all extremities. No edema. SKIN: Dry. PSYCH: Calm. LABORATORY DATA: No labs today. IMAGING: HIDA scan shows filling of the gallbladder excludes cystic duct obstruction or acute cholecystitis and shows chronic cholecystitis or gallbladder dyskinesia. IMPRESSION AND PLAN: 1. Abdominal pain due to gallstone pancreatitis. Imaging showed chronic cholecystitis. Status post laparoscopic cholecystectomy today. Continue IV fluids and pain management as needed. 2. Left-sided abdominal pain. GI has been consulted. If pain does not resolve status post cholecystectomy, may need further GI workup. 3. Acute kidney injury. Creatinine is improving with IV fluids. 4. Hypertension. Stable. We will continue hydralazine as needed. 5. Diabetes type 2. Sliding scale insulin once he starts eating. 6. High cholesterol. We will start statin tomorrow. 7. History of prostate cancer. CT of abdomen is suggestive of urinary bladder thickening suggestive of cystitis. UA is negative. We will continue with Zosyn. 8. Gastrointestinal and deep venous thrombosis prophylaxis. No anticoagulation due to surgery today. PLAN: To continue current treatment. We will repeat labs in a.m. and further recommendations per Surgical team and GI. Dictated by RAJENDRA Tim Lenka Vega MD MY/MODL /[id number]
[2020-05-04] MEDS: CARVEDILOL 12.5 MG TAB PO SCH ×2 (17:24→21:54)
[2020-05-04] MEDS: AMLODIPINE BESYLATE 10 MG TAB PO SCH (17:24)
[2020-05-04] MEDS: ATORVASTATIN 10 MG TAB PO SCH (20:27)
[2020-05-05] VITALS (7 sets, daily range): BP systolic 114–180; BP diastolic 77–80
[2020-05-05] MEDS: MORPHINE SULFATE INJ 4 MG/ML INJ 1ML IV PRN ×2 (02:44→14:48)
[2020-05-05] MEDS: ONDANSETRON HCL INJ 2MG/ML 2ML 2 MG/ML VIAL IV PRN ×2 (02:44→14:48)
[2020-05-05] MEDS: SODIUM CHLORIDE 0.9% 1000ML 1,000 ML IV SCH ×2 (04:30→09:05)
[2020-05-05 05:01] LABS: BASOPHILS % 0.3 % (0.0-1.0); EOSINOPHILS # (AUTO) 0.1 (0.0-0.4); EOSINOPHILS % 0.8 % (0.0-6.0); HEMATOCRIT 41.7 % (38.2-49.6); HEMOGLOBIN 13.3 g/dL (14.0-18.0); LYMPHOCYTES # (AUTO) 0.8 (1.0-3.2); LYMPHOCYTES % 10.2 % (18.0-39.1); MEAN CORPUSCULAR HEMOGLOBIN 29.2 pg (28-32); MEAN CORPUSCULAR HGB CONC 31.9 g/dL (31-35); MEAN CORPUSCULAR VOLUME 91.6 fL (81-99); MONOCYTES # (AUTO) 0.8 (0.2-0.8); MONOCYTES % 10.2 % (4.4-11.3); NEUTROPHILS % 78.2 % (38.7-80.0); PLATELET COUNT 191 x10e3/uL (140-360); RED BLOOD COUNT 4.55 x10e6/uL (4.3-5.7); RED CELL DISTRIBUTION WIDTH 15.1 % (11.7-14.4)
[2020-05-05 05:23] LABS: ANION GAP 13.7 mmol/L (8-16); BLOOD UREA NITROGEN 9 mg/dL (7-26); BUN/CREATININE RATIO 9 (6-25); CALCIUM 8.6 mg/dL (8.4-10.2); CARBON DIOXIDE 26 mmol/L (22-29); CHLORIDE 103 mmol/L (98-107); CREATININE, SERUM 1.01 mg/dL (0.72-1.25); EST GLOMERULAR FILTRATION RATE > 60 ML/MIN (60-); GLUCOSE 125 mg/dL (74-118); POTASSIUM 4.7 mmol/L (3.5-5.1); SODIUM 138 mmol/L (136-145)
[2020-05-05] MEDS: PIPER-TAZ 3.375 GM / NS 50ML IV SCH ×3 (05:44→22:00)
[2020-05-05] MEDS: CARVEDILOL 12.5 MG TAB PO SCH ×3 (05:45→22:00)
[2020-05-05] MEDS: INSULIN REGULAR, HUMAN 100 UNIT/1 ML 3ML VIAL SQ SCH ×4 (07:30→21:00)
[2020-05-05] MEDS: FAMOTIDINE 20 MG/2 ML VIAL IV SCH (09:05)
[2020-05-05] MEDS: AMLODIPINE BESYLATE 10 MG TAB PO SCH (09:05)
--- NOTE | 2020-05-05 12:57 | NUR ---
74 ml urine noted per bladder scan.
--- NOTE | 2020-05-05 17:58 | Progress Note ---
DATE: 05/05/2020 CONSULTANTS: 1. Dr. Koenig, surgery. 2. Dr. Singh, GI. SUBJECTIVE: The patient is in the room with spouse at bedside. Abdominal pain still present. He tolerated clear liquids, now on GI soft diet. He denies any chest pain, shortness of breath, nausea, or vomiting, but still with significant abdominal pain. OBJECTIVE: VITAL SIGNS: Temperature 98.6, pulse is 85, respirations 17, blood pressure 114/79, pulse ox is 96% on room air. GENERAL: No acute distress. HEENT: Normocephalic and atraumatic. NECK: Supple. LUNGS: Clear to auscultation. CARDIOVASCULAR: Regular rate and rhythm. GI: Soft and tender to touch. Surgical site intact. NEURO: Alert, awake, and oriented x3. MUSCULOSKELETAL: Moves all extremities. No edema. SKIN: Dry and intact. PSYCH: Calm. LABORATORY DATA: WBC 7.72, hemoglobin 13.3, hematocrit 41.7, platelets 191. Sodium 138, potassium 4.7, BUN 9, creatinine 1.01, calcium 8.6. IMPRESSION: 1. Abdominal pain due to gallstone pancreatitis status post lap cholecystectomy. Continue IV fluids and pain management as needed. GI has been consulted, if abdominal pain persists, may need further GI workup. 2. Acute kidney injury, improved with IV fluids. 3. Hypertension, stable. Continue hydralazine as needed. 4. Diabetes type 2, sliding scale insulin. 5. High cholesterol, on statin. 6. History of prostate cancer, CT abdomen and pelvis suggestive of urinary bladder thickening, suggestive of cystitis, but UA is negative. We will continue on Zosyn for now. 7. GI and DVT prophylaxis. No anticoagulation due to recent surgery. PLAN: Continue current treatment. We will advance diet as tolerated. Further recommendations per GI and surgical team. Dictated by RAJENDRA Tim Lenka Vega MD MY/MODL /[id number]
[2020-05-05] MEDS: ATORVASTATIN 10 MG TAB PO SCH (20:35)
[2020-05-06] VITALS (8 sets, daily range): BP systolic 114–147; BP diastolic 63–96
[2020-05-06] MEDS: SODIUM CHLORIDE 0.9% 1000ML 1,000 ML IV SCH ×2 (02:29→16:00)
[2020-05-06] MEDS: PIPER-TAZ 3.375 GM / NS 50ML IV SCH ×3 (06:17→23:10)
[2020-05-06] MEDS: CARVEDILOL 12.5 MG TAB PO SCH ×3 (06:18→23:11)
--- NOTE | 2020-05-06 07:00 | NUR ---
BEDSIDE SHIFT REPORT RECEIVED FROM THE FIRST COAT SANDER RN. EDUCATED PT ABOUT FALL PRECAUTIONS. PT VERBALIZED UNDERSTANDING. CALL LIGHT WITH IN EASY REACH. INSTRUCTED PT TO USE CALL LIGHT FOR ALL THE NEEDS. BED IS LOW AND LOCKED. SIDE RAILS X2. BED ALARM IS ON. ALL SAFETY MEASURES IN PLACE. PT DENIES NEEDS AT THIS TIME.
[2020-05-06] MEDS: INSULIN REGULAR, HUMAN 100 UNIT/1 ML 3ML VIAL SQ SCH ×4 (08:30→21:00)
[2020-05-06] MEDS: FAMOTIDINE 20 MG/2 ML VIAL IV SCH (09:22)
[2020-05-06] MEDS: ASPIRIN 81 MG CHEW TAB PO SCH (09:24)
[2020-05-06] MEDS: AMLODIPINE BESYLATE 10 MG TAB PO SCH (09:25)
[2020-05-06] MEDS: MORPHINE SULFATE INJ 4 MG/ML INJ 1ML IV PRN (09:32)
[2020-05-06 09:54] LABS: BASOPHILS % 0.2 % (0.0-1.0); EOSINOPHILS # (AUTO) 0.3 (0.0-0.4); EOSINOPHILS % 6.7 % (0.0-6.0); HEMATOCRIT 38.1 % (38.2-49.6); HEMOGLOBIN 11.6 g/dL (14.0-18.0); LYMPHOCYTES # (AUTO) 0.6 (1.0-3.2); LYMPHOCYTES % 11.7 % (18.0-39.1); MEAN CORPUSCULAR HEMOGLOBIN 28.3 pg (28-32); MEAN CORPUSCULAR HGB CONC 30.4 g/dL (31-35); MEAN CORPUSCULAR VOLUME 92.9 fL (81-99); MONOCYTES # (AUTO) 0.5 (0.2-0.8); MONOCYTES % 9.7 % (4.4-11.3); NEUTROPHILS # (AUTO) 3.6 (2.1-6.9); NEUTROPHILS % 71.3 % (38.7-80.0); PLATELET COUNT 160 x10e3/uL (140-360); RED CELL DISTRIBUTION WIDTH 15.5 % (11.7-14.4)
[2020-05-06] MEDS ORDERED: MAGNESIUM HYDROXIDE 30 ML UDC PO ONE (15:00)
--- NOTE | 2020-05-06 15:00 | NUR ---
PT HAS NO BM FOR [address] Valentino SOTO AND REPORTED THE SAME. NEW ORDER RECEIVED.
--- NOTE | 2020-05-06 18:15 | NUR ---
NISH IRWIN NP REGARDING PT IV FLUIDS ORDER.
--- NOTE | 2020-05-06 19:06 | NUR ---
BEDSIDE SHIFT REPORT GIVEN TO THE DAIRY NUTRITION CONSULTANT RN. PT DENIED FURTHER NEEDS.
--- NOTE | 2020-05-06 19:10 | NUR ---
Received patient awake, walking around, no BM yet but passing gas per patient, instructed patient to inform RN/PCT if + BM, will continue to monitor closely
--- NOTE | 2020-05-06 19:53 | Progress Note ---
DATE: 05/06/2020 CONSULTANTS: 1. Dr. Koenig, Surgery. 2. Dr. Singh, GI. SUBJECTIVE: The patient is sitting in a recliner, complaining of abdominal pain and lower quadrants and to the left side. He is tolerating GI soft diet, but has not moved his bowels. He denies any chest pain, shortness of breath, nausea, or vomiting. OBJECTIVE: VITAL SIGNS: Temperature 98.3, pulse is 73, respirations 20, blood pressure 129/76, and pulse ox is 96% on room air. GENERAL: No acute distress. HEENT: Normocephalic and atraumatic. NECK: Supple. LUNGS: Clear to auscultation. CARDIOVASCULAR: Regular rate and rhythm. GI: Soft and nontender. Surgical site intact. NEURO: Alert, awake, and oriented x3. MUSCULOSKELETAL: Moves all extremities. No edema. SKIN: Dry and intact. PSYCH: Calm. LABORATORY DATA: WBC 5.05, hemoglobin 11.6, hematocrit 38.1, and platelet 160. Blood sugar within normal limits. IMPRESSION: 1. Gallstone pancreatitis, status post laparoscopic cholecystectomy. Imaging showed chronic cholecystitis. Continue pain management as needed and diet advanced as tolerated. 2. Left-sided abdominal pain. GI on the case, was given laxative today to help with his bowel movement and see if his pain improves after bowel movement. 3. Acute kidney injury, improved with IV fluids. 4. Hypertension. Continue hydralazine as needed. 5. Diabetes type 2. Sliding scale insulin. 6. High cholesterol, on statin. 7. History of prostate cancer. CT abdomen noted with possible cystitis, but UA is negative. We will continue on Zosyn. 8. Gastrointestinal and deep venous thrombosis prophylaxis. No anticoagulation due to recent surgery. PLAN: To continue current treatment. Tolerating soft diet. Further recommendations per GI. Discussed with GI, who is ordering laxatives and if the pain does not improve after bowel movement, may consider further workup. Dictated by RAJENDRA Tim Lenka Vega MD MY/MODL /[id number]
[2020-05-06] MEDS ORDERED: BISACODYL 10 MG SUPP PR ONE (20:00)
[2020-05-06] MEDS: ATORVASTATIN 10 MG TAB PO SCH (20:37)
--- NOTE | 2020-05-06 22:06 | NUR ---
patient just had a BM, moderate to large
--- NOTE | 2020-05-06 22:41 | NUR ---
DR. Valentino Singh rounding updated of the patient status
[2020-05-07] VITALS (9 sets, daily range): BP systolic 122–150; BP diastolic 75–92
[2020-05-07] MEDS: PIPER-TAZ 3.375 GM / NS 50ML IV SCH ×3 (05:49→21:12)
[2020-05-07] MEDS: CARVEDILOL 12.5 MG TAB PO SCH ×3 (05:50→21:12)
--- NOTE | 2020-05-07 07:15 | NUR ---
bedside shift report done with dayshift RN
[2020-05-07] MEDS: ASPIRIN 81 MG CHEW TAB PO SCH (09:03)
[2020-05-07] MEDS: FAMOTIDINE 20 MG/2 ML VIAL IV SCH (09:03)
[2020-05-07] MEDS: AMLODIPINE BESYLATE 10 MG TAB PO SCH (09:03)
[2020-05-07] MEDS: INSULIN REGULAR, HUMAN 100 UNIT/1 ML 3ML VIAL SQ SCH ×4 (09:19→20:38)
[2020-05-07 12:57] LABS: BASOPHILS % 0.2 % (0.0-1.0); EOSINOPHILS # (AUTO) 0.3 (0.0-0.4); EOSINOPHILS % 6.5 % (0.0-6.0); HEMATOCRIT 38.8 % (38.2-49.6); HEMOGLOBIN 12.2 g/dL (14.0-18.0); LYMPHOCYTES # (AUTO) 0.7 (1.0-3.2); LYMPHOCYTES % 15.9 % (18.0-39.1); MEAN CORPUSCULAR HEMOGLOBIN 28.9 pg (28-32); MEAN CORPUSCULAR HGB CONC 31.4 g/dL (31-35); MEAN CORPUSCULAR VOLUME 91.9 fL (81-99); MONOCYTES # (AUTO) 0.5 (0.2-0.8); MONOCYTES % 10.8 % (4.4-11.3); NEUTROPHILS # (AUTO) 3.1 (2.1-6.9); NEUTROPHILS % 66.2 % (38.7-80.0); PLATELET COUNT 170 x10e3/uL (140-360); RED BLOOD COUNT 4.22 x10e6/uL (4.3-5.7)
[2020-05-07 13:13] LABS: BLOOD UREA NITROGEN 9 mg/dL (7-26); BUN/CREATININE RATIO 8 (6-25); CALCIUM 8.9 mg/dL (8.4-10.2); CARBON DIOXIDE 29 mmol/L (22-29); CHLORIDE 104 mmol/L (98-107); CREATININE, SERUM 1.07 mg/dL (0.72-1.25); EST GLOMERULAR FILTRATION RATE > 60 ML/MIN (60-); GLUCOSE 242 mg/dL (74-118); SODIUM 141 mmol/L (136-145)
--- NOTE | 2020-05-07 13:24 | Diagnostic Imaging Report ---
EXAM: Abdomen Radiograph 1 View(s) INDICATION: Abdominal pain. COMPARISON: CT of the abdomen/pelvis on 05/01/2020. FINDINGS: Nonobstructive bowel gas pattern. No abnormal calcification. No evidence of pneumoperitoneum. Status post cholecystectomy. The bones are within normal limits for age. IMPRESSION: No acute abdominal radiographic abnormality. Normal bowel gas pattern. Signed by: Ramana Anguiano MD on 05/07/2020 1:20 PM
[2020-05-07] MEDS: ACETAMINOPHEN 325 MG TAB PO PRN (19:43)
[2020-05-07] MEDS: ATORVASTATIN 10 MG TAB PO SCH (20:10)
--- NOTE | 2020-05-07 21:43 | Progress Note ---
DATE: 05/07/2020 CONSULTANTS: 1. Sukumar Koenig MD, Surgery. 2. Dr. Singh, GI. SUBJECTIVE: The patient is sitting up in a chair. Reports he is feeling drained and lethargic, had a bowel movement last night, but still with abdominal pain. He denies any chest pain, shortness of breath, nausea, or vomiting. OBJECTIVE: VITAL SIGNS: Temperature 99.4, pulse is 70, respirations 20, blood pressure 150/87, pulse ox is 94% on room air. GENERAL: Fatigue. HEENT: Normocephalic, atraumatic. NECK: Supple. LUNGS: Clear to auscultation. CARDIOVASCULAR: Regular rate and rhythm. GI: Soft and nontender with surgical sites intact. NEUROLOGIC: Alert, awake, oriented x3. MUSCULOSKELETAL: Moves all extremities. No edema. SKIN: Dry and intact. PSYCH: Calm. LABORATORY DATA: WBC 4.64, hemoglobin 12.2, hematocrit 38.8, platelets 170. Sodium 141, potassium 4.0, CO2 29, BUN is 9, creatinine 1.07, estimated GFR is greater than 60. Blood glucose 242, calcium 8.9. IMAGING: Abdominal x-ray shows no acute abdominal radiographic abnormalities. Normal bowel gas pattern. IMPRESSION: 1. Gallstone pancreatitis. Status post laparoscopic cholecystectomy. We will continue with pain management and advance diet as tolerated. 2. Left side and lower quadrant abdominal pain. GI has been consulted. KUB today shows normal gas pattern. 3. Acute kidney injury. Improved with IV fluids. 4. Hypertension. Continue hydralazine as needed. 5. Diabetes type 2. Sliding scale insulin. 6. High cholesterol. On statin. 7. History of prostate cancer. CT abdomen noted. We will continue with Zosyn. 8. GI and DVT prophylaxis. No chemical anticoagulation due to recent surgery. PLAN: Continue IV antibiotics, still feeling sick and abdominal pain. Repeat labs and KUB. Further recommendations per GI. Dictated by RAJENDRA Tim Lenka Vega MD MY/MODL /[id number]
[2020-05-07] MEDS ORDERED: MAGNESIUM/ALUMINUM/SIMETHICONE 30 ML UDC PO ONE (22:45)
[2020-05-07] MEDS ORDERED: DONNATAL/LIDOCAINE/MAALOX 30 ML SUSP PO ONE (22:45)
[2020-05-07] MEDS ORDERED: LIDOCAINE VISC 2% SOLN 15 ML UDC PO ONE (22:45)
[2020-05-07] MEDS ORDERED: BELLADONNA ALK/PHENOBARBITAL 5 ML UDC PO ONE (22:45)
[2020-05-07] MEDS: PANTOPRAZOLE 40 MG 10ML VIAL IV SCH (23:22)
[2020-05-08 03:35] VITALS: BP 135/70
[2020-05-08] MEDS: ACETAMINOPHEN 325 MG TAB PO PRN (05:40)
[2020-05-08] MEDS: CARVEDILOL 12.5 MG TAB PO SCH (05:50)
[2020-05-08] MEDS: PIPER-TAZ 3.375 GM / NS 50ML IV SCH (05:50)
--- NOTE | 2020-05-08 07:12 | NUR ---
Bedside report and walking rounds completed with oncoming nurse. Patient in bed with call light within reach. No issues or concerns noted.
[2020-05-08 07:49] VITALS: BP 108/68
[2020-05-08] MEDS: ASPIRIN 81 MG CHEW TAB PO SCH (08:20)
[2020-05-08] MEDS: PANTOPRAZOLE 40 MG 10ML VIAL IV SCH (08:22)
[2020-05-08] MEDS: INSULIN REGULAR, HUMAN 100 UNIT/1 ML 3ML VIAL SQ SCH ×2 (08:22→11:32)
[2020-05-08] MEDS: AMLODIPINE BESYLATE 10 MG TAB PO SCH (08:22)
[2020-05-08 08:26] VITALS: BP 108/68
[2020-05-08 11:33] VITALS: BP 138/94
--- NOTE | 2020-05-08 13:10 | NUR ---
EDUCATED ABOUT IMM, SIGNED, FILED IN CHART, WITH COPY LEFT WITH FAMILY AT BEDSIDE.
[2020-05-08 15:25] VITALS: BP 150/84
--- NOTE | 2020-05-08 15:50 | NUR ---
Discharge instructions given to the patient and his , they verbalized understanding. IV to the left ac was removed with tip intact.
--- NOTE | 2020-05-08 20:58 | Discharge Summary ---
PCP: Dr. Teto Brown at [facility]. FINAL DISCHARGE DIAGNOSES: 1. Gallstone pancreatitis, status post laparoscopic cholecystectomy. 2. Left lower quadrant abdominal pain. 3. Acute kidney injury. 4. Hypertension. 5. Diabetes type 2. 6. High cholesterol. 7. History of prostate cancer. CONSULTANTS: 1. Dr. Koenig, Surgery. 2. Dr. Singh with GI. PROCEDURES: He underwent laparoscopic cholecystectomy. HISTORY: Per HPI. HOSPITAL COURSE: This is a 69-year-old male, who presented to the ER with complaints of abdominal pain. Labs showed elevation in lipase. Imaging showed chronic cholecystitis. He was kept n.p.o., given IV fluids, and surgical team consulted. He underwent laparoscopic cholecystectomy, but abdominal pain continued to persist. So, GI was consulted. Laxatives were given. No need for ERCP or further intervention at this time as the symptoms are most likely postsurgical abdominal pain. Today, he is feeling much better, tolerating diet, we will discharge home to follow up with Dr. Koenig, PCP, and GI if lower quadrant pain continues to persist. CT abdomen was noted to have bladder thickness, UA was negative for UTI. He was treated with Zosyn empirically. He remained afebrile, no dysuria or hematuria. PHYSICAL EXAMINATION: VITAL SIGNS: Temperature 98.9, pulse is 57, respirations 20, blood pressure 138/94, pulse ox is 98% on room air. GENERAL: No acute distress. HEENT: Normocephalic and atraumatic. NECK: Supple. LUNGS: Clear to auscultation. CARDIOVASCULAR: Regular rate and rhythm. GI: Soft and mild tenderness in the lower quadrant. NEUROLOGIC: Alert, awake, and oriented x3. MUSCULOSKELETAL: Moves all extremities. No edema. SKIN: Dry and intact. PSYCH: Calm. CONDITION AT DISCHARGE: Improved and stable. DISCHARGE MEDICATIONS: Please see medication reconciliation list. FOLLOWUP: Follow up with Dr. Koenig in 1 week, with Dr. Singh in 2 to 3 weeks, and PCP in 1 to 2 weeks. TIME SPENT: Total time of discharge is 32 minutes. Dictated by RAJENDRA Tim Lenka Vega MD MY/MODL :52:13 /[id number] cc: Teto Brown MD
--- NOTE | 2020-05-09 13:27 | Operative Report ---
DATE OF PROCEDURE: 05/03/2020 SURGEON: Sukumar Koenig MD PREOPERATIVE DIAGNOSIS: Cholecystitis. POSTOPERATIVE DIAGNOSIS: Cholecystitis. OPERATIVE PROCEDURE: Laparoscopic cholecystectomy. ANESTHESIA: General. INDICATIONS: A 69-year-old male with abdominal pain with HIDA scan showing poor ejection fraction of the gallbladder with cholecystitis. The patient consented for laparoscopic cholecystectomy. Attendant risks have been discussed. PROCEDURE FINDING: Chronic cholecystitis. DESCRIPTION OF PROCEDURE: The patient was brought to the OR, intubated. The abdomen was prepped and draped in sterile fashion. Infraumbilical incision was made and a 10 mm port inserted. Insufflation begun under direct vision. Other port sites placed in the midepigastric and right upper quadrant. Gallbladder chronically inflamed and distended. Fundus retracted in cephalad direction. Neck of the gallbladder retracted laterally. With blunt and sharp dissection, cystic artery was isolated, triple clipped and divided. The cystic duct also isolated and junction of the common bile duct was noted before triple clipping the cystic duct and divided between clips. The gallbladder detached from the liver with cautery and taken out through the umbilical port site. Operative field was irrigated. Hemostasis achieved. Ports removed under direct vision. Fascia was closed with 0 Vicryl. Skin was closed with subcuticular stitch. The patient was extubated and transported to recovery room. Blood loss was 10 mL. Sukumar Koenig MD DNL/MODL /[id number]
== END 2020-05-08 15:51 | disposition home or self-care (01) | DRG 418 ==
LOC: ER 22:01 → ERHOLD 05-02 06:48 → MED/SURG2 05-02 11:26
PROVIDERS: ADMIT Internal Medicine; ATTEND Internal Medicine
PROC: 0FT44ZZ Resection of Gallbladder, Percutaneous Endoscopic Approach (ICD-10-PCS; principal; 2020-05-03)
DX: K85.10 Biliary acute pancreatitis without necrosis or infection (principal); N17.9 Acute kidney failure, unspecified; K80.10 Calculus of gallbladder with chronic cholecystitis without obstruction; I10 Essential (primary) hypertension; E11.9 Type 2 diabetes mellitus without complications; K21.9 Gastro-esophageal reflux disease without esophagitis; E78.5 Hyperlipidemia, unspecified; N40.0 Benign prostatic hyperplasia without lower urinary tract symptoms; Z87.440 Personal history of urinary (tract) infections; Z85.46 Personal history of malignant neoplasm of prostate; Z83.3 Family history of diabetes mellitus; K80.70 Calculus of gallbladder and bile duct without cholecystitis without obstruction; Z20.828 Contact with and (suspected) exposure to other viral communicable diseases; Z79.84 Long term (current) use of oral hypoglycemic drugs
CPT/HCPCS: 36415; 74018; 74177; 74181; 76705; 78227; 80048; 80053; 81001; 82150; 82948; 83690; 85025; 88304; 99284; A9537; J1100; J1817; J2001; J2270; J2405; J2543; J2710; J3010; J7030; Q9967; U0002

== ENCOUNTER 2021-06-21 09:09 | Inpatient (IN) | payer MEDICARE ==
[~2021-06-21] VITALS: Ht 162.6 cm; Wt 111.1 kg
[2021-06-21 09:54] LABS: BASOPHILS % 0.2 % (0.0-1.0); EOSINOPHILS # (AUTO) 0.4 (0.0-0.4); EOSINOPHILS % 5.3 % (0.0-6.0); HEMATOCRIT 35.9 % (38.2-49.6); HEMOGLOBIN 12.3 g/dL (14.0-18.0); LYMPHOCYTES # (AUTO) 0.7 (1.0-3.2); MEAN CORPUSCULAR HEMOGLOBIN 29.6 pg (28-32); MEAN CORPUSCULAR HGB CONC 34.3 g/dL (31-35); MEAN CORPUSCULAR VOLUME 86.3 fL (81-99); MONOCYTES # (AUTO) 0.7 (0.2-0.8); MONOCYTES % 10.1 % (4.4-11.3); NEUTROPHILS # (AUTO) 4.9 (2.1-6.9); NEUTROPHILS % 73.1 % (38.7-80.0); PLATELET COUNT 244 x10e3/uL (140-360); RED BLOOD COUNT 4.16 x10e6/uL (4.3-5.7); RED CELL DISTRIBUTION WIDTH 13.3 % (11.7-14.4)
[2021-06-21 10:27] LABS: INR 0.9; PROTHROMBIN TIME 12.9 seconds (11.9-14.5)
[2021-06-21 10:28] LABS: PARTIAL THROMBOPLASTIN TIME 32.3 seconds (23.8-35.5)
[2021-06-21 10:38] LABS: ALBUMIN 3.4 g/dL (3.5-5.0); ALBUMIN/GLOBULIN RATIO 0.9 (0.8-2.0); ANION GAP 14.9 mmol/L (8-16); CALCIUM 8.6 mg/dL (8.4-10.2); CREATININE, SERUM 0.86 mg/dL (0.72-1.25); MAGNESIUM 1.5 MG/DL (1.3-2.1)
[2021-06-21 10:42] LABS: POTASSIUM 2.9 mmol/L (3.5-5.1)
[2021-06-21] MEDS ORDERED: POTASSIUM CHLORIDE 20 MEQ TAB CR PO ONE (10:42)
[2021-06-21 10:45] LABS: CREATINE KINASE MB 5.6 ng/mL (0-5.0)
[2021-06-21] MEDS ORDERED: ALBUTEROL/IPRATROPIUM 3 ML NEB NEB PRN (11:45)
[2021-06-21] MEDS ORDERED: ASPIRIN 81 MG ENTERIC COATED PO ONE (11:45)
[2021-06-21 18:20] VITALS: BP 136/74
[2021-06-21 18:33] VITALS: BP 136/74
[2021-06-21 19:00] LABS: CREATINE KINASE MB 5.6 ng/mL (0-5.0)
[2021-06-21 20:00] VITALS: BP_SYST 116; BP_SYST 136; BP_DIAS 74
[2021-06-21] MEDS ORDERED: HYDROCODONE/APAP 7.5MG-325MG 1 EA TAB PO PRN (22:00)
[2021-06-21] MEDS: INSULIN LISPRO 100 UNIT/1 ML 3ML VIAL SQ SCH (22:05)
[2021-06-21] MEDS ORDERED: METFORMIN HCL 500 MG TAB PO SCH (22:06)
[2021-06-21] MEDS: CARVEDILOL 12.5 MG TAB PO SCH (23:35)
[2021-06-21] MEDS ORDERED: GUAIFENESIN/CODEINE 5 ML LIQD PO PRN (23:45)
[2021-06-22] VITALS (11 sets, daily range): BP systolic 89–136; BP diastolic 50–77
[2021-06-22] MEDS: ONDANSETRON HCL INJ 2MG/ML 2ML 2 MG/ML VIAL IV PRN ×2 (00:30→04:24)
[2021-06-22] MEDS ORDERED: PROMETHAZINE 12.5MG/ NACL 0.9% 12.5 MG/50 ML BAG IV ONE (04:30)
[2021-06-22] MEDS ORDERED: SODIUM CHLORIDE 0.9% 50ML 50 ML ONE (04:45)
[2021-06-22 05:00] LABS: BASOPHILS % 0.3 % (0.0-1.0); EOSINOPHILS # (AUTO) 0.2 (0.0-0.4); EOSINOPHILS % 3.1 % (0.0-6.0); LYMPHOCYTES # (AUTO) 0.9 (1.0-3.2); LYMPHOCYTES % 11.9 % (18.0-39.1); MEAN CORPUSCULAR HEMOGLOBIN 29.1 pg (28-32); MEAN CORPUSCULAR HGB CONC 32.4 g/dL (31-35); MEAN CORPUSCULAR VOLUME 89.8 fL (81-99); MONOCYTES # (AUTO) 0.7 (0.2-0.8); MONOCYTES % 9.4 % (4.4-11.3); NEUTROPHILS # (AUTO) 5.6 (2.1-6.9); NEUTROPHILS % 74.9 % (38.7-80.0); PLATELET COUNT 246 x10e3/uL (140-360); RED BLOOD COUNT 4.12 x10e6/uL (4.3-5.7); RED CELL DISTRIBUTION WIDTH 13.2 % (11.7-14.4)
[2021-06-22 05:19] LABS: ALBUMIN 3.5 g/dL (3.5-5.0); ALBUMIN/GLOBULIN RATIO 0.8 (0.8-2.0); ANION GAP 14.5 mmol/L (8-16); CALCIUM 9.1 mg/dL (8.4-10.2); CHOL/HDL RATIO 1.9 (3.9-4.7); CREATININE, SERUM 1.1 mg/dL (0.72-1.25)
[2021-06-22 05:31] LABS: POTASSIUM 2.5 mmol/L (3.5-5.1)
[2021-06-22 05:54] LABS: MAGNESIUM 1.7 MG/DL (1.3-2.1)
[2021-06-22] MEDS: CARVEDILOL 12.5 MG TAB PO SCH ×3 (06:00→16:23)
[2021-06-22] MEDS ORDERED: POTASSIUM CHLORIDE 20 MEQ TAB CR PO ONE ×2 (06:46→12:00)
[2021-06-22] MEDS ORDERED: POTASSIUM CHLORIDE 20MEQ/100ML 200 ML IV ONE (07:00)
[2021-06-22] MEDS: INSULIN LISPRO 100 UNIT/1 ML 3ML VIAL SQ SCH ×4 (07:30→20:31)
[2021-06-22] MEDS ORDERED: AMLODIPINE BESYLATE 10 MG TAB PO SCH (09:00)
[2021-06-22] MEDS: GABAPENTIN 300 MG CAP PO SCH ×2 (09:01→15:00)
[2021-06-22] MEDS: METFORMIN HCL 500 MG TAB PO SCH ×2 (09:01→17:00)
[2021-06-22] MEDS: ASPIRIN 81 MG CHEW TAB PO SCH (09:01)
[2021-06-22] MEDS ORDERED: SODIUM CHLORIDE 0.9% 250ML 250 ML ONE ×2 (09:16→14:10)
[2021-06-22] MEDS ORDERED: ACETYLCYSTEINE 20% INHAL SOLN 30 ML VIAL INH SCH (14:00)
[2021-06-22] MEDS: ALBUTEROL/IPRATROPIUM 3 ML NEB NEB SCH ×2 (14:30→18:45)
[2021-06-22] MEDS: ACETYLCYSTEINE 200 MG/ML 4ML VIAL INH SCH ×2 (15:00→18:45)
[2021-06-22 15:55] LABS: ABG PH 7.23 (7.35-7.45)
[2021-06-22 15:56] LABS: ABG HCO3 41 mmol/L (22-26); ABG PCO2 97 mmHg (35-45); ABG PO2 81 mmHg (80-105); ABG TCO2 43
[2021-06-22 15:59] LABS: ABG PH 7.27 (7.35-7.45)
[2021-06-22 16:00] LABS: ABG HCO3 40 mmol/L (22-26); ABG PCO2 87 mmHg (35-45); ABG PO2 69 mmHg (80-105); ABG TCO2 42
[2021-06-22 20:10] LABS: ABG PH 7.26 (7.35-7.45)
[2021-06-22 20:12] LABS: ABG HCO3 39 mmol/L (22-26); ABG PO2 99 mmHg (80-105); ABG TCO2 41
[2021-06-22 20:13] LABS: ABG PCO2 86 mmHg (35-45)
[2021-06-22] MEDS: GABAPENTIN 100 MG CAP PO SCH (21:00)
[2021-06-22] MEDS ORDERED: ATORVASTATIN 10 MG TAB PO SCH (21:00)
[2021-06-22] MEDS: ENOXAPARIN SOD INJ 40 MG/0.4 ML SYR SC SCH (21:00)
[2021-06-23] VITALS (27 sets, daily range): BP systolic 71–129; BP diastolic 52–88
[2021-06-23] MEDS: ALBUTEROL/IPRATROPIUM 3 ML NEB NEB SCH ×4 (01:15→18:54)
[2021-06-23 04:41] LABS: BASOPHILS % 0.2 % (0.0-1.0); EOSINOPHILS # (AUTO) 0.1 (0.0-0.4); EOSINOPHILS % 2.6 % (0.0-6.0); HEMATOCRIT 32.1 % (38.2-49.6); LYMPHOCYTES # (AUTO) 0.6 (1.0-3.2); LYMPHOCYTES % 11.5 % (18.0-39.1); MEAN CORPUSCULAR HEMOGLOBIN 29.2 pg (28-32); MEAN CORPUSCULAR HGB CONC 31.2 g/dL (31-35); MEAN CORPUSCULAR VOLUME 93.6 fL (81-99); MONOCYTES # (AUTO) 0.6 (0.2-0.8); MONOCYTES % 11.5 % (4.4-11.3); NEUTROPHILS # (AUTO) 3.9 (2.1-6.9); PLATELET COUNT 237 x10e3/uL (140-360); RED BLOOD COUNT 3.43 x10e6/uL (4.3-5.7); RED CELL DISTRIBUTION WIDTH 13.9 % (11.7-14.4)
[2021-06-23 05:01] LABS: ANION GAP 13.5 mmol/L (8-16); CALCIUM 8.4 mg/dL (8.4-10.2); CREATININE, SERUM 1.72 mg/dL (0.72-1.25); POTASSIUM 3.5 mmol/L (3.5-5.1)
[2021-06-23 05:13] LABS: CREATINE KINASE MB 2.1 ng/mL (0-5.0)
[2021-06-23] MEDS: ACETYLCYSTEINE 200 MG/ML 4ML VIAL INH SCH ×3 (07:30→18:54)
[2021-06-23] MEDS: INSULIN LISPRO 100 UNIT/1 ML 3ML VIAL SQ SCH ×4 (07:30→20:19)
[2021-06-23] MEDS: METFORMIN HCL 500 MG TAB PO SCH (07:38)
[2021-06-23] MEDS: GABAPENTIN 100 MG CAP PO SCH (08:37)
[2021-06-23] MEDS: ASPIRIN 81 MG CHEW TAB PO SCH (08:37)
[2021-06-23] MEDS: ENOXAPARIN SOD INJ 40 MG/0.4 ML SYR SC SCH ×2 (08:52→21:13)
[2021-06-23] MEDS ORDERED: DEXTROSE 5%/0.9% SOD CHL 1,000 ML IV SCH (09:00)
[2021-06-23] MEDS ORDERED: DEXTROSE 50% SYRINGE 50 ML IV PRN (09:00)
[2021-06-23] MEDS: AMPICILLIN SOD/SULBACTAM 1.5GM 1.5 G in AMPICILLIN SOD/SULBACTAM 1.5GM 50 ML IV SCH ×2 (11:52→17:37)
[2021-06-23] MEDS ORDERED: LACTATED RINGER'S 1,000 ML INJ ONE (12:15)
[2021-06-23] MEDS ORDERED: GABAPENTIN 100 MG CAP PO SCH (21:00)
[2021-06-24] VITALS (24 sets, daily range): BP systolic 86–150; BP diastolic 53–96
[2021-06-24] MEDS ORDERED: ACETAMINOPHEN 325 MG TAB PO PRN
[2021-06-24] MEDS: AMPICILLIN SOD/SULBACTAM 1.5GM 1.5 G in AMPICILLIN SOD/SULBACTAM 1.5GM 50 ML IV SCH ×5 (00:09→23:50)
[2021-06-24] MEDS ORDERED: ACETAMINOPHEN 325 MG TAB ONE (00:14)
[2021-06-24] MEDS: ALBUTEROL/IPRATROPIUM 3 ML NEB NEB SCH ×5 (01:00→23:50)
[2021-06-24 05:44] LABS: BASOPHILS % 0.4 % (0.0-1.0); EOSINOPHILS # (AUTO) 0.1 (0.0-0.4); EOSINOPHILS % 2.1 % (0.0-6.0); HEMATOCRIT 31.4 % (38.2-49.6); HEMOGLOBIN 9.7 g/dL (14.0-18.0); LYMPHOCYTES # (AUTO) 0.8 (1.0-3.2); LYMPHOCYTES % 15.2 % (18.0-39.1); MEAN CORPUSCULAR HEMOGLOBIN 28.9 pg (28-32); MEAN CORPUSCULAR HGB CONC 30.9 g/dL (31-35); MEAN CORPUSCULAR VOLUME 93.5 fL (81-99); MONOCYTES # (AUTO) 0.6 (0.2-0.8); MONOCYTES % 11.1 % (4.4-11.3); NEUTROPHILS # (AUTO) 3.8 (2.1-6.9); NEUTROPHILS % 70.8 % (38.7-80.0); PLATELET COUNT 215 x10e3/uL (140-360); RED BLOOD COUNT 3.36 x10e6/uL (4.3-5.7); RED CELL DISTRIBUTION WIDTH 13.6 % (11.7-14.4)
[2021-06-24 06:10] LABS: INR 0.98; PROTHROMBIN TIME 13.8 seconds (11.9-14.5)
[2021-06-24 06:20] LABS: ALBUMIN 2.8 g/dL (3.5-5.0); ALBUMIN/GLOBULIN RATIO 0.9 (0.8-2.0); CALCIUM 8.2 mg/dL (8.4-10.2); CREATININE, SERUM 1.18 mg/dL (0.72-1.25)
[2021-06-24] MEDS: INSULIN LISPRO 100 UNIT/1 ML 3ML VIAL SQ SCH ×4 (07:30→20:58)
[2021-06-24] MEDS: ACETYLCYSTEINE 200 MG/ML 4ML VIAL INH SCH ×3 (07:35→18:50)
[2021-06-24] MEDS: ENOXAPARIN SOD INJ 40 MG/0.4 ML SYR SC SCH ×2 (09:21→20:58)
[2021-06-24] MEDS: ASPIRIN 81 MG CHEW TAB PO SCH (09:21)
[2021-06-24] MEDS ORDERED: POTASSIUM CHLORIDE 20 MEQ TAB CR PO ONE (10:00)
[2021-06-24] MEDS ORDERED: SODIUM CHLORIDE 0.9% 250ML 250 ML ONE (13:04)
[2021-06-24] MEDS ORDERED: POTASSIUM CHLORIDE 20 MEQ TAB CR PO STA (17:52)
[2021-06-25] VITALS (13 sets, daily range): BP systolic 128–156; BP diastolic 77–111
[2021-06-25] MEDS: AMPICILLIN SOD/SULBACTAM 1.5GM 1.5 G in AMPICILLIN SOD/SULBACTAM 1.5GM 50 ML IV SCH ×3 (05:48→17:58)
[2021-06-25] MEDS: ALBUTEROL/IPRATROPIUM 3 ML NEB NEB SCH ×3 (06:45→21:40)
[2021-06-25] MEDS: ACETYLCYSTEINE 200 MG/ML 4ML VIAL INH SCH ×4 (06:45→23:00)
[2021-06-25] MEDS: INSULIN LISPRO 100 UNIT/1 ML 3ML VIAL SQ SCH ×4 (07:30→21:09)
[2021-06-25] MEDS: ASPIRIN 81 MG CHEW TAB PO SCH (09:01)
[2021-06-25] MEDS: ENOXAPARIN SOD INJ 40 MG/0.4 ML SYR SC SCH ×2 (09:02→21:00)
[2021-06-25] MEDS ORDERED: SODIUM CHLORIDE 0.9% 250ML 250 ML ONE (18:02)
[2021-06-25] MEDS: FAMOTIDINE 20 MG TAB PO SCH (22:00)
[2021-06-26] VITALS: BP 139/99
[2021-06-26 04:00] VITALS: BP 149/96
[2021-06-26] MEDS: AMPICILLIN SOD/SULBACTAM 1.5GM 1.5 G in AMPICILLIN SOD/SULBACTAM 1.5GM 50 ML IV SCH ×4 (06:00→18:00)
[2021-06-26] MEDS: INSULIN LISPRO 100 UNIT/1 ML 3ML VIAL SQ SCH ×3 (07:30→16:30)
[2021-06-26] MEDS: ALBUTEROL/IPRATROPIUM 3 ML NEB NEB SCH ×2 (07:45→15:20)
[2021-06-26] MEDS: ACETYLCYSTEINE 200 MG/ML 4ML VIAL INH SCH ×2 (07:45→15:20)
[2021-06-26 08:07] VITALS: BP 131/87
[2021-06-26 08:39] VITALS: BP 131/87
[2021-06-26] MEDS: ASPIRIN 81 MG CHEW TAB PO SCH (08:57)
[2021-06-26] MEDS: ENOXAPARIN SOD INJ 40 MG/0.4 ML SYR SC SCH (08:57)
[2021-06-26] MEDS: FAMOTIDINE 20 MG TAB PO SCH ×2 (08:57→17:00)
[2021-06-26] MEDS ORDERED: SODIUM CHLORIDE 0.9% 250ML 250 ML ONE (12:16)
[2021-06-26 12:24] VITALS: BP 137/98
[2021-06-26 16:20] VITALS: BP 148/93
[2021-06-26 16:41] LABS: ABG HCO3 38 mmol/L (22-26); ABG PCO2 51 mmHg (35-45); ABG PH 7.48 (7.35-7.45); ABG PO2 109 mmHg (80-105); ABG TCO2 40
[2021-06-27] MEDS ORDERED: AZITHROMYCIN 250 MG TAB PO SCH (09:00)
== END 2021-06-26 20:39 | disposition home or self-care (01) | DRG 205 ==
LOC: ER 09:18 → ERHOLD 11:40 → MED/SURG 17:29 → OBSVTOIN 06-22 13:03 → ICU 06-22 18:05 → MED/SURG 06-25 17:02
PROVIDERS: ADMIT Internal Medicine; ATTEND Internal Medicine
PROC: 5A09357 Assistance with Respiratory Ventilation, Less than 24 Consecutive Hours, Continuous Positive Airway Pressure (ICD-10-PCS; principal; 2021-06-22)
DX: E66.2 Morbid (severe) obesity with alveolar hypoventilation (principal); J96.02 Acute respiratory failure with hypercapnia; G93.41 Metabolic encephalopathy; E87.1 Hypo-osmolality and hyponatremia; J47.1 Bronchiectasis with (acute) exacerbation; N17.9 Acute kidney failure, unspecified; Z68.41 Body mass index [BMI] 40.0-44.9, adult; E87.6 Hypokalemia; E11.9 Type 2 diabetes mellitus without complications; E78.5 Hyperlipidemia, unspecified; Z20.822 Contact with and (suspected) exposure to COVID-19; Z85.46 Personal history of malignant neoplasm of prostate; G47.33 Obstructive sleep apnea (adult) (pediatric); Z79.82 Long term (current) use of aspirin; Z79.84 Long term (current) use of oral hypoglycemic drugs
CPT/HCPCS: 36415; 36569; 36600; 71045; 71250; 80048; 80053; 80061; 82550; 82553; 82805; 82948; 83735; 83880; 84443; 84484; 85025; 85610; 85730; 87070; 87116; 87205; 87206; 93005; 93306; 94667; 94668; 94669; 94799; 96372; 97139; 99284; G0378; J0295; J0456; J1650; J2405; J2550; J3480; J7042; J7050; J7121; U0002

== ENCOUNTER 2021-07-14 15:48 | Inpatient (IN) | payer MEDICARE ==
[~2021-07-14] VITALS: Ht 162.6 cm; Wt 111.1 kg
[2021-07-14 16:39] LABS: BASOPHILS % 0.2 % (0.0-1.0); EOSINOPHILS # (AUTO) 0.3 (0.0-0.4); EOSINOPHILS % 5.7 % (0.0-6.0); HEMATOCRIT 39.5 % (38.2-49.6); HEMOGLOBIN 12.4 g/dL (14.0-18.0); LYMPHOCYTES # (AUTO) 0.7 (1.0-3.2); LYMPHOCYTES % 15.6 % (18.0-39.1); MEAN CORPUSCULAR HEMOGLOBIN 29.1 pg (28-32); MEAN CORPUSCULAR HGB CONC 31.4 g/dL (31-35); MEAN CORPUSCULAR VOLUME 92.7 fL (81-99); MONOCYTES # (AUTO) 0.4 (0.2-0.8); MONOCYTES % 8.9 % (4.4-11.3); NEUTROPHILS # (AUTO) 3.3 (2.1-6.9); NEUTROPHILS % 69.4 % (38.7-80.0); PLATELET COUNT 276 x10e3/uL (140-360); RED BLOOD COUNT 4.26 x10e6/uL (4.3-5.7); RED CELL DISTRIBUTION WIDTH 13.9 % (11.7-14.4)
[2021-07-14 16:50] LABS: INR 0.84; PROTHROMBIN TIME 12.1 seconds (11.9-14.5)
[2021-07-14 16:51] LABS: PARTIAL THROMBOPLASTIN TIME 28.5 seconds (23.8-35.5)
[2021-07-14 17:05] LABS: ALBUMIN 3.7 g/dL (3.5-5.0); ALBUMIN/GLOBULIN RATIO 0.9 (0.8-2.0); ANION GAP 12.8 mmol/L (8-16); CALCIUM 9.8 mg/dL (8.4-10.2); CREATININE, SERUM 1.19 mg/dL (0.72-1.25); MAGNESIUM 1.7 MG/DL (1.3-2.1)
[2021-07-14 17:06] LABS: CREATINE KINASE MB 1.6 ng/mL (0-5.0); POTASSIUM 2.8 mmol/L (3.5-5.1)
[2021-07-14] MEDS ORDERED: POTASSIUM CHLORIDE 20 MEQ TAB CR PO STA (17:18)
[2021-07-14] MEDS ORDERED: POTASSIUM CHLORIDE 20MEQ/100ML 100 ML IV ONE (17:30)
[2021-07-14] MEDS ORDERED: ASPIRIN 325 MG TAB PO ONE (18:15)
[2021-07-14] MEDS ORDERED: POTASSIUM CHLORIDE 20MEQ/100ML 100 ML ONE (18:19)
[2021-07-14] MEDS ORDERED: SODIUM CHLORIDE 0.9% 250ML 250 ML ONE (18:27)
[2021-07-14] MEDS ORDERED: SODIUM CHLORIDE 0.9% 250ML 250 ML IV ONE (18:30)
[2021-07-14 20:00] VITALS: BP 141/92
[2021-07-14 20:15] VITALS: BP 141/92
[2021-07-14] MEDS ORDERED: PIOGLITAZONE HC45 MG PO (23:01)
[2021-07-15] VITALS (8 sets, daily range): BP systolic 94–147; BP diastolic 69–94
[2021-07-15] MEDS ORDERED: Morphine 2mg Syringe 2 MG/ML SYR IV PRN (01:45)
[2021-07-15 04:50] LABS: CREATINE KINASE MB 1.9 ng/mL (0-5.0)
[2021-07-15] MEDS ORDERED: ONDANSETRON HCL INJ 2MG/ML 2ML 2 MG/ML VIAL IV PRN (08:00)
[2021-07-15] MEDS ORDERED: HYDROCODONE/APAP 7.5MG-325MG 1 EA TAB PO PRN (08:00)
[2021-07-15] MEDS ORDERED: ACETAMINOPHEN 325 MG TAB PO PRN (08:00)
[2021-07-15] MEDS: PIOGLITAZONE HCL 45 MG TAB PO SCH (09:00)
[2021-07-15] MEDS: ASPIRIN 81 MG CHEW TAB PO SCH (09:59)
[2021-07-15] MEDS: CARVEDILOL 12.5 MG TAB PO SCH ×2 (09:59→16:40)
[2021-07-15] MEDS: AMLODIPINE BESYLATE 10 MG TAB PO SCH (09:59)
[2021-07-15] MEDS: GLIMEPIRIDE 2 MG TAB PO SCH ×2 (09:59→16:40)
[2021-07-15] MEDS: GABAPENTIN 300 MG CAP PO SCH ×3 (09:59→20:40)
[2021-07-15] MEDS: POTASSIUM CHLORIDE 20 MEQ TAB CR PO SCH (09:59)
[2021-07-15 10:59] LABS: BASOPHILS % 0.2 % (0.0-1.0); EOSINOPHILS # (AUTO) 0.2 (0.0-0.4); HEMATOCRIT 40.1 % (38.2-49.6); HEMOGLOBIN 12.1 g/dL (14.0-18.0); LYMPHOCYTES # (AUTO) 0.6 (1.0-3.2); LYMPHOCYTES % 15.2 % (18.0-39.1); MEAN CORPUSCULAR HEMOGLOBIN 29.1 pg (28-32); MEAN CORPUSCULAR HGB CONC 30.2 g/dL (31-35); MEAN CORPUSCULAR VOLUME 96.4 fL (81-99); MONOCYTES # (AUTO) 0.4 (0.2-0.8); MONOCYTES % 10.2 % (4.4-11.3); NEUTROPHILS # (AUTO) 2.7 (2.1-6.9); NEUTROPHILS % 68.2 % (38.7-80.0); PLATELET COUNT 225 x10e3/uL (140-360); RED BLOOD COUNT 4.16 x10e6/uL (4.3-5.7); RED CELL DISTRIBUTION WIDTH 14.1 % (11.7-14.4)
[2021-07-15 11:20] LABS: ANION GAP 14.5 mmol/L (8-16); CALCIUM 9.3 mg/dL (8.4-10.2); CHOL/HDL RATIO 2.9 (3.9-4.7); CREATININE, SERUM 1.22 mg/dL (0.72-1.25); POTASSIUM 3.5 mmol/L (3.5-5.1)
[2021-07-15 11:43] LABS: CREATINE KINASE MB 1.9 ng/mL (0-5.0)
[2021-07-15] MEDS ORDERED: DEXTROSE 50% SYRINGE 50 ML IV PRN (13:15)
[2021-07-15] MEDS ORDERED: CLOPIDOGREL BISULFATE 75 MG TAB PO NR (15:15)
[2021-07-15] MEDS: INSULIN REGULAR, HUMAN 100 UNIT/1 ML SQ SCH ×2 (16:30→20:41)
[2021-07-15] MEDS: SODIUM CHLORIDE 0.9% 1000ML 1,000 ML IV SCH (16:33)
[2021-07-15] MEDS ORDERED: ENOXAPARIN 30 MG/0.3 ML SYR SC SCH (17:00)
[2021-07-15] MEDS ORDERED: ATORVASTATIN 10 MG TAB PO SCH (21:00)
[2021-07-16] VITALS (12 sets, daily range): BP systolic 104–137; BP diastolic 58–87
[2021-07-16] MEDS ORDERED: PANTOPRAZOLE SOD 40 MG TABEC PO ONE (02:30)
[2021-07-16] MEDS: SODIUM CHLORIDE 0.9% 1000ML 1,000 ML IV SCH (05:00)
[2021-07-16 06:01] LABS: BASOPHILS % 0.5 % (0.0-1.0); EOSINOPHILS # (AUTO) 0.3 (0.0-0.4); EOSINOPHILS % 6.3 % (0.0-6.0); HEMATOCRIT 36.8 % (38.2-49.6); HEMOGLOBIN 11.1 g/dL (14.0-18.0); LYMPHOCYTES # (AUTO) 0.8 (1.0-3.2); MEAN CORPUSCULAR HEMOGLOBIN 29.1 pg (28-32); MEAN CORPUSCULAR HGB CONC 30.2 g/dL (31-35); MEAN CORPUSCULAR VOLUME 96.6 fL (81-99); MONOCYTES # (AUTO) 0.5 (0.2-0.8); MONOCYTES % 11.7 % (4.4-11.3); NEUTROPHILS # (AUTO) 2.7 (2.1-6.9); NEUTROPHILS % 63.5 % (38.7-80.0); PLATELET COUNT 228 x10e3/uL (140-360); RED BLOOD COUNT 3.81 x10e6/uL (4.3-5.7)
[2021-07-16 06:54] LABS: ALBUMIN 3.1 g/dL (3.5-5.0); ALBUMIN/GLOBULIN RATIO 0.9 (0.8-2.0); ANION GAP 9.1 mmol/L (8-16); POTASSIUM 3.1 mmol/L (3.5-5.1)
[2021-07-16] MEDS: INSULIN REGULAR, HUMAN 100 UNIT/1 ML SQ SCH (07:30)
[2021-07-16] MEDS: GLIMEPIRIDE 2 MG TAB PO SCH (08:00)
[2021-07-16] MEDS: ASPIRIN 81 MG CHEW TAB PO SCH (09:00)
[2021-07-16] MEDS: POTASSIUM CHLORIDE 20 MEQ TAB CR PO SCH (09:00)
[2021-07-16] MEDS: PIOGLITAZONE HCL 45 MG TAB PO SCH (09:00)
[2021-07-16] MEDS: GABAPENTIN 300 MG CAP PO SCH (09:00)
[2021-07-16] MEDS ORDERED: CLOPIDOGREL BISULFATE 75 MG TAB PO SCH (09:00)
[2021-07-16] MEDS: CARVEDILOL 12.5 MG TAB PO SCH (09:32)
[2021-07-16] MEDS: AMLODIPINE BESYLATE 10 MG TAB PO SCH (09:32)
[2021-07-16] MEDS ORDERED: POTASSIUM CHLORIDE 20 MEQ TAB CR PO ONE (10:45)
[2021-07-16] MEDS ORDERED: LIDOCAINE HCL 2% LOCAL 20 ML VIAL ONE (12:19)
[2021-07-16] MEDS ORDERED: FENTANYL CITRATE/PF 100MCG/2 ML INJ ONE (12:19)
[2021-07-16] MEDS ORDERED: MIDAZOLAM HCL 2 MG/2 ML VIAL ONE (12:19)
[2021-07-16] MEDS ORDERED: IOPAMIDOL 370 MG/ML 200 ML INFUS..BTL INJ ONE (12:20)
[2021-07-16] MEDS ORDERED: HEPARIN SOD/SOD CHLORIDE 2,000 ML ONE (12:20)
[2021-07-16] MEDS ORDERED: SODIUM CHLORIDE 0.9% 1000ML 1,000 ML IV SCH (13:00)
[2021-07-16] MEDS ORDERED: ALBUTEROL0.63 MG/3 NEB (16:18)
[2021-07-16] MEDS ORDERED: PROVENTIL HFA6.7 GM INH (16:25)
[2021-07-16] MEDS ORDERED: ALBUTEROL SULFATE HFA 8GM INHALATION AEROSOL INH PRN (16:30)
[2021-07-16] MEDS ORDERED: ONDANSETRON HCL 4 MG ORAL DISINTEGRATING TAB PO PRN (17:00)
[2021-07-17] MEDS ORDERED: PANTOPRAZOLE SOD 40 MG TABEC PO SCH (06:00)
== END 2021-07-16 18:56 | disposition home or self-care (01) | DRG 287 ==
LOC: ER 16:29 → ERHOLD 18:07 → MED/SURG 20:04 → MED/SURG3 07-15 06:01 → OBSVTOIN 07-15 12:56
PROVIDERS: ADMIT Internal Medicine; ATTEND Internal Medicine
PROC: 4A023N7 Measurement of Cardiac Sampling and Pressure, Left Heart, Percutaneous Approach (ICD-10-PCS; principal; 2021-07-16)
PROC: B2111ZZ Fluoroscopy of Multiple Coronary Arteries using Low Osmolar Contrast (ICD-10-PCS; 2021-07-16)
DX: R07.89 Other chest pain (principal); Z68.41 Body mass index [BMI] 40.0-44.9, adult; J96.10 Chronic respiratory failure, unspecified whether with hypoxia or hypercapnia; E66.2 Morbid (severe) obesity with alveolar hypoventilation; E11.9 Type 2 diabetes mellitus without complications; I10 Essential (primary) hypertension; I25.10 Atherosclerotic heart disease of native coronary artery without angina pectoris; Z20.822 Contact with and (suspected) exposure to COVID-19; Z99.81 Dependence on supplemental oxygen; Z85.46 Personal history of malignant neoplasm of prostate; E78.00 Pure hypercholesterolemia, unspecified; J47.9 Bronchiectasis, uncomplicated; Z90.79 Acquired absence of other genital organ(s)
CPT/HCPCS: 36415; 71045; 80048; 80053; 80061; 82550; 82553; 82948; 83735; 83880; 84484; 85025; 85610; 85730; 93005; 93306; 93454; 94799; 96360; 99152; 99284; C1769; C1887; G0378; J1650; J1817; J2001; J2250; J2270; J3010; J3480; J7030; J7050; Q9967; U0002